=== PATIENT | female | born 2000 | race Caucasian/White ===

== ENCOUNTER 2018-08-03 12:44 | Emergency (ER) | payer SELFPAY ==
[2018-08-03 12:48] VITALS: BP 125/77; PULSE 102; RESP 18; TEMP 36.9; O2SAT 99
--- NOTE | 2018-08-03 13:02 | W.ED.GENAD ---
Discharge Plan Discharge Details Chief Complaint: RespSymp Clinical Impression: URI (upper respiratory infection) Primary Care Provider: Dang Abreu ED Provider: Nannette Hyatt Disposition Patient Disposition: HOME Home Meds and New Rx's Prescriptions: Continue norelgestromin-ethin.estradiol [Xulane] 1 EACH patch weekly 1 ea Transdermal weekly Qty: 9 RF: 4 lisdexamfetamine 30 mg capsule 30 mg PO DAILY Qty: 30 RF: 0 No Action citalopram 20 MG tablet 20 mg PO DAILY Qty: 30 RF: 0 Discharge Instructions Instructions: Upper Respiratory Infection (ED) Additional Instructions: Drink plenty of fluids and get plenty of rest. Alternate Tylenol and Motrin for pain. Take [id number]-bxj-[id number] cough and cold medicine such as DayQuil, NyQuil for symptomatic treatment for a likely viral illness. Follow up with her primary care doctor in 1 week for reevaluation as needed. Return to the emergency department with any worsening or new concerning symptoms. Stand Alone Forms: Work Release Discharge Data Discharge Physician: Nannette Hyatt Medical Decision Making MDM Narrative Medical decision making narrative: 17-year-old female who presents with rhinorrhea, congestion, intermittent dry and productive cough with green sputum, and sore throat for the past few days. Patient states she came to the ED due to her sore throat. She called out of work today and is requesting a work note. Vitals within normal limits. Airway is intact and she is speaking in full sentences and no drooling. Normal ENT and lung exam. Uvula midline and no evidence of abscess or exudates or tonsillar edema or erythema. Lungs clear to auscultation. I explained to patient that her symptoms are likely viral in nature and can be treated with symptomatic treatment such as Motrin, Tylenol and lxrr-pdt-ulwexwc cough and cold medicine. I explained to patient that her exam does not appear consistent with pharyngitis and I do not see any indication for a rapid strep test and she is agreeable. I do not see any indication for p.o. steroids. Patient instructed on the importance of handwashing, rest, fluids. She was given a work note to return in 2 days. She is instructed to follow-up with the primary care doctor for reevaluation and return here if worse. Patient's medical history noted she is on Celexa but she states she is not taking this. Her PMH includes PTSD, ADHD, anxiety. Patient states she feels she also became anxious about her symptoms today and that led her to come to the ER. She was reassured that her symptoms are likely viral and she feels good to go home. HPI - General Adult General Mode of arrival: ambulatory. Date/Time Provider Initiated Documentation: 08/03/18 12:51. Limitations to Documentation: no limitations. Information obtained by: patient. HPI Narrative: Patient is a 17-year-old female who presents with runny nose, congestion, occasional dry and productive cough, and sore throat for the past few days. Patient states her sore throat is bothering her the most and this started last night. She took NyQuil last night with some relief. Patient states she called out of work today and needs a work note. She denies difficulty swallowing and has been able to take liquids and solids. She denies known fever. She denies shortness of breath or chest pain. Related Data Previous Rx's Medication Instructions Recorded lisdexamfetamine 30 mg capsule 30 mg PO DAILY #30 tab-cap 08/02/18 Allergies Allergy/AdvReac Type Severity Reaction Status Date / Time DANDER Allergy Intermediate Skin Rash Uncoded 08/03/18 12:52 General Stated Complaint: RespSymp MARGO: 4 Review of Systems Review of Systems All systems reviewed & are unremarkable except as noted in HPI and below Constitutional Denies chills, Denies excessive sweating, Denies fatigue, Denies fever(s), Denies weakness and Denies weight loss Eyes Patient Reports system reviewed and no additional complaints, except as docu and Denies blurry vision ENT Reports dysphagia, Reports nasal congestion, Reports nasal discharge, Denies sinus pain, Denies sinus pressure, Reports sore throat and Denies throat swelling Cardiovascular Denies chest pain, Denies syncope, Denies rapid heart rate and Denies dyspnea Respiratory Reports cough and Denies dyspnea Gastrointestinal Denies abdominal pain, Reports dysphagia, Denies diarrhea and Denies vomiting Genitourinary Denies hematuria, Denies dysuria and Denies flank pain Musculoskeletal Denies back pain and Denies joint swelling Integumentary/Breasts Denies lesions and Denies rash Neurologic Denies behavioral changes, Denies confusion, Denies syncope and Denies weakness Psychiatric Denies behavioral changes, Denies confusion and Denies depression Endocrine Denies excessive sweating and Denies fatigue Hematologic/Lymphatic Denies easy bruising and Denies lymphadenopathy Allergic/Immunologic Denies throat swelling PFSH Family History Mother Substance abuse Essential hypertension Depression Mental disorder Neoplasm Sister Asthma Father Substance abuse Diabetes Mental disorder Asthma Brother No problems noted. Grandfather Essential hypertension Depression Heart disease Cerebrovascular accident Grandfather Essential hypertension Grandmother Depression Grandmother Diabetes Essential hypertension Heart disease Hyperlipidemia Neoplasm Cerebrovascular accident Maternal Aunt Anxiety Depression Neoplasm Asthma Maternal Family History Neoplasm Medical History ADHD (attention deficit hyperactivity disorder) Depression Ganglion cyst of finger of right hand Learning disabilities Post traumatic stress disorder Social History Smoking/Tobacco Use Status: Current every day Surgical History oral surgery Exam Const General: cooperative and healthy appearing Orientation: alert and awake HENMT Head: normal to inspection Ears: hearing grossly normal bilaterally, external ears normal and TM's normal bilaterally General nose exam: external nose normal Face and sinus: normal facial exam and no sinus tenderness Mouth: oral mucosae normal, oropharynx normal, moist mucous membranes and no trismus Teeth and gingiva: dentition normal Throat: posterior oropharynx normal (No exudates), uvula midline, no peritonsillar masses and no postnasal drainage Eyes General: appearance normal, both eyes and all related structures Eyelids: eyelids normal Pupils: PERRL EOM: EOM intact bilaterally Neck Neck: normal visual inspection Lymphatic: no lymphadenopathy noted Chest Chest: normal inspection of the chest Resp Effort & Inspection: normal respiratory effort and able to speak in complete sentences Auscultation: clear to auscultation bilaterally Cardio Rate: regular rate Rhythm: regular rhythm Skin General skin exam: no rashes or lesions noted Neuro General: alert and awake Cognition: normal cognition Speech: speech normal Gait: normal gait Motor: muscle tone normal throughout Sensory Exam: no sensory deficits noted Extrem General: normal to inspection, full ROM and normal capillary refill Psych Appearance: grossly normal Mental Status: mental status grossly normal Speech and Movement: speech and movement normal Affect: normal affect Thought Process: normal Course Vital Signs Temperature 98.4 F 08/03/18 12:48 Pulse 102 H 08/03/18 12:48 Respiratory Rate 18 08/03/18 12:48 Blood Pressure 125/77 08/03/18 12:48 Pulse Oximetry 99 08/03/18 12:48 Temperature 98.4 F 08/03/18 12:48 Pulse 102 H 08/03/18 12:48 Respiratory Rate 18 08/03/18 12:48 Blood Pressure 125/77 08/03/18 12:48 Pulse Oximetry 99 08/03/18 12:48
--- NOTE | 2018-08-03 13:06 | ED.GENADUL_ITS ---
Discharge Plan Discharge Details Chief Complaint: RespSymp Clinical Impression: URI (upper respiratory infection) Primary Care Provider: Dang Abreu ED Provider: Nannette Hyatt Disposition Patient Disposition: HOME Home Meds and New Rx's Prescriptions: Continue norelgestromin-ethin.estradiol [Xulane] 1 EACH patch weekly 1 ea Transdermal weekly Qty: 9 RF: 4 lisdexamfetamine 30 mg capsule 30 mg PO DAILY Qty: 30 RF: 0 No Action citalopram 20 MG tablet 20 mg PO DAILY Qty: 30 RF: 0 Discharge Instructions Instructions: Upper Respiratory Infection (ED) Additional Instructions: Drink plenty of fluids and get plenty of rest. Alternate Tylenol and Motrin for pain. Take ntkw-ggy-aoecdtp cough and cold medicine such as DayQuil, NyQuil for symptomatic treatment for a likely viral illness. Follow up with her primary care doctor in 1 week for reevaluation as needed. Return to the emergency department with any worsening or new concerning symptoms. Stand Alone Forms: Work Release Discharge Data Discharge Physician: Nannette Hyatt Medical Decision Making MDM Narrative Medical decision making narrative: 17-year-old female who presents with rhinorrhea, congestion, intermittent dry and productive cough with green sputum , and sore throat for the past few days. Patient states she came to the ED due to her sore throat. She called out of work today and is requesting a work note. Vitals within normal limits. Airway is intact and she is speaking in full sentences and no drooling. Normal ENT and lung exam. Uvula midline and no evidence of abscess or exudates or tonsillar edema or erythema. Lungs clear to auscultation. I explained to patient that her symptoms are likely viral in nature and can be treated with symptomatic treatment such as Motrin, Tylenol and dsud-izd-dtjsmqj cough and cold medicine. I explained to patient that her exam does not appear consistent with pharyngitis and I do not see any indication for a rapid strep test and she is agreeable. I do not see any indication for p.o. steroids. Patient instructed on the importance of handwashing, rest, fluids. She was given a work note to return in 2 days. She is instructed to follow-up with the primary care doctor for reevaluation and return here if worse. Patient's medical history noted she is on Celexa but she states she is not taking this. Her PMH includes PTSD, ADHD, anxiety. Patient states she feels she also became anxious about her symptoms today and that led her to come to the ER. She was reassured that her symptoms are likely viral and she feels good to go home. HPI - General Adult General Mode of arrival: ambulatory . Date/Time Provider Initiated Documentation: 08/03/18 12:51 . Limitations to Documentation: no limitations . Information obtained by: patient . HPI Narrative: Patient is a 17-year-old female who presents with runny nose, congestion, occasional dry and productive cough, and sore throat for the past few days. Patient states her sore throat is bothering her the most and this started last night. She took NyQuil last night with some relief. Patient states she called out of work today and needs a work note. She denies difficulty swallowing and has been able to take liquids and solids. She denies known fever. She denies shortness of breath or chest pain. Related Data Previous Rx's Medication Instructions Recorded lisdexamfetamine 30 mg capsule 30 mg PO DAILY #30 tab-cap 08/02/18 Allergies Allergy/AdvReac Type Severity Reaction Status Date / Time DANDER Allergy Intermediate Skin Rash Uncoded 08/03/18 12:52 General Stated Complaint: RespSymp MARGO: 4 Review of Systems Review of Systems All systems reviewed & are unremarkable except as noted in HPI and below Constitutional Denies chills, Denies excessive sweating, Denies fatigue, Denies fever(s), Denies weakness and Denies weight loss Eyes Patient Reports system reviewed and no additional complaints, except as docu and Denies blurry vision ENT Reports dysphagia, Reports nasal congestion, Reports nasal discharge, Denies sinus pain, Denies sinus pressure, Reports sore throat and Denies throat swelling Cardiovascular Denies chest pain, Denies syncope, Denies rapid heart rate and Denies dyspnea Respiratory Reports cough and Denies dyspnea Gastrointestinal Denies abdominal pain, Reports dysphagia, Denies diarrhea and Denies vomiting Genitourinary Denies hematuria, Denies dysuria and Denies flank pain Musculoskeletal Denies back pain and Denies joint swelling Integumentary/Breasts Denies lesions and Denies rash Neurologic Denies behavioral changes, Denies confusion, Denies syncope and Denies weakness Psychiatric Denies behavioral changes, Denies confusion and Denies depression Endocrine Denies excessive sweating and Denies fatigue Hematologic/Lymphatic Denies easy bruising and Denies lymphadenopathy Allergic/Immunologic Denies throat swelling PFSH Family History Mother Substance abuse Essential hypertension Depression Mental disorder Neoplasm Sister Asthma Father Substance abuse Diabetes Mental disorder Asthma Brother No problems noted. Grandfather Essential hypertension Depression Heart disease Cerebrovascular accident Grandfather Essential hypertension Grandmother Depression Grandmother Diabetes Essential hypertension Heart disease Hyperlipidemia Neoplasm Cerebrovascular accident Maternal Aunt Anxiety Depression Neoplasm Asthma Maternal Family History Neoplasm Medical History ADHD (attention deficit hyperactivity disorder) Depression Ganglion cyst of finger of right hand Learning disabilities Post traumatic stress disorder Social History Smoking/Tobacco Use Status: Current every day Surgical History oral surgery Exam Const General: cooperative and healthy appearing Orientation: alert and awake HENMT Head: normal to inspection Ears: hearing grossly normal bilaterally, external ears normal and TM's normal bilaterally General nose exam: external nose normal Face and sinus: normal facial exam and no sinus tenderness Mouth: oral mucosae normal, oropharynx normal, moist mucous membranes and no trismus Teeth and gingiva: dentition normal Throat: posterior oropharynx normal (No exudates), uvula midline, no peritonsillar masses and no postnasal drainage Eyes General: appearance normal, both eyes and all related structures Eyelids: eyelids normal Pupils: PERRL EOM: EOM intact bilaterally Neck Neck: normal visual inspection Lymphatic: no lymphadenopathy noted Chest Chest: normal inspection of the chest Resp Effort & Inspection: normal respiratory effort and able to speak in complete sentences Auscultation: clear to auscultation bilaterally Cardio Rate: regular rate Rhythm: regular rhythm Skin General skin exam: no rashes or lesions noted Neuro General: alert and awake Cognition: normal cognition Speech: speech normal Gait: normal gait Motor: muscle tone normal throughout Sensory Exam: no sensory deficits noted Extrem General: normal to inspection, full ROM and normal capillary refill Psych Appearance: grossly normal Mental Status: mental status grossly normal Speech and Movement: speech and movement normal Affect: normal affect Thought Process: normal Course Vital Signs Temperature 98.4 F 08/03/18 12:48 Pulse 102 H 08/03/18 12:48 Respiratory Rate 18 08/03/18 12:48 Blood Pressure 125/77 08/03/18 12:48 Pulse Oximetry 99 08/03/18 12:48 Temperature 98.4 F 08/03/18 12:48 Pulse 102 H 08/03/18 12:48 Respiratory Rate 18 08/03/18 12:48 Blood Pressure 125/77 08/03/18 12:48 Pulse Oximetry 99 08/03/18 12:48
[2018-08-03 13:15] VITALS: BP 122/73; PULSE 99; RESP 18; TEMP 36.9; O2SAT 99
== END 2018-08-03 13:16 | disposition home or self-care (01) ==
PROVIDERS: Emergency Provider Physician Assistant; PCP Nurse Practitioner Family
DX: J06.9 Acute upper respiratory infection, unspecified (principal)
CPT/HCPCS: 99282

== ENCOUNTER 2018-11-02 22:25 | Emergency (ER) | payer MEDICAID, SELFPAY ==
[2018-11-02 22:30] VITALS: BP 133/75; PULSE 88; RESP 16; TEMP 37.2; O2SAT 99
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
[2018-11-02 22:53] LABS: Bilirubin Negative (Negative); Blood Small (Negative); Clarity Cloudy; Glucose Negative (Negative); Ketones Negative (Negative); Leukocyte Esterase Moderate (Negative); Nitrite Negative (Negative); Specific Gravity 1.025 (1.005-1.025); Urobilinogen 0.2 EU/dL (Up TO 0.2); pH 5.5 (5-8)
[2018-11-02 23:04] LABS: Epithelial Cells Many HPF (Negative); WBC >50 HPF (0-5)
[2018-11-02 23:05] LABS: Bacteria Few HPF (Negative); C & S Indicated? No/Sq. Contamination; Casts Negative LPF (Negative); Crystals Negative HPF (Negative); Mucus Negative (Negative)
[2018-11-02] MEDS: Phenazopyridine 100 MG TAB PO (23:35)
[2018-11-02] MEDS: Cephalexin 500 MG CAP PO (23:45)
[2018-11-02 23:47] VITALS: BP 133/75; PULSE 88; RESP 16; TEMP 37.2; O2SAT 99
== END 2018-11-02 23:45 | disposition home or self-care (01) ==
PROVIDERS: Emergency Provider Physician Assistant; PCP Nurse Practitioner Family
DX: N39.0 Urinary tract infection, site not specified (principal); Z87.440 Personal history of urinary (tract) infections; I10 Essential (primary) hypertension
CPT/HCPCS: 81025; 99283; 81003; 81015

== ENCOUNTER 2018-12-06 17:27 | Emergency (ER) | payer MEDICAID, SELFPAY ==
[2018-12-06 18:01] VITALS: BP 122/86; PULSE 89; RESP 12; TEMP 36.8; O2SAT 98
[2018-12-06 18:18] LABS: Bilirubin Small (Negative); Blood Large (Negative); Clarity Sl Cloudy; Glucose Negative (Negative); Ketones 40 mg/dL (Negative); Leukocyte Esterase Small (Negative); Nitrite Positive (Negative); Specific Gravity >= 1.030 (1.005-1.025); pH 5.5 (5-8)
[2018-12-06 18:28] LABS: Bacteria Moderate HPF (Negative); C & S Indicated? Yes; Casts Negative LPF (Negative); Crystals Negative HPF (Negative); Epithelial Cells Few HPF (Negative); Mucus Negative (Negative); Other Cells Negative (Negative); RBC >50 (0-2)
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
[2018-12-06] MEDS: Ciprofloxacin 500 MG TAB PO (21:00)
[2018-12-06 21:59] VITALS: BP 122/86; PULSE 89; RESP 12; TEMP 36.8; O2SAT 98
== END 2018-12-06 20:33 | disposition home or self-care (01) ==
PROVIDERS: Emergency Provider Student in an Organized Health Care Education/Training Program; PCP Nurse Practitioner Family
DX: N10 Acute pyelonephritis (principal); B96.20 Unspecified Escherichia coli [E. coli] as the cause of diseases classified elsewhere; Z87.440 Personal history of urinary (tract) infections; I10 Essential (primary) hypertension
CPT/HCPCS: 81025; 87077; 99283; 81003; 81015; 87086; 87186

== ENCOUNTER 2019-03-17 08:51 | Emergency (ER) | payer MEDICAID, SELFPAY ==
[2019-03-17 09:15] VITALS: BP 126/67; PULSE 90; RESP 16; TEMP 37.7; O2SAT 100
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
[2019-03-17] MEDS: Acetaminophen 325 MG TAB 650 MG PO (10:23)
[2019-03-17] MEDS: Ibuprofen 600 MG TAB PO (10:24)
[2019-03-17] MEDS: Dexamethasone 10 MG/ML VIAL PO (10:24)
[2019-03-17 10:50] VITALS: BP 126/67; PULSE 84; RESP 16; TEMP 37.6; O2SAT 100
== END 2019-03-17 10:40 | disposition home or self-care (01) ==
PROVIDERS: Emergency Provider Student in an Organized Health Care Education/Training Program; PCP Nurse Practitioner Family
DX: J02.0 Streptococcal pharyngitis (principal); F17.210 Nicotine dependence, cigarettes, uncomplicated
CPT/HCPCS: 87880; 96372; 99284; J0561; J1100

== ENCOUNTER 2019-05-14 17:39 | Emergency (ER) | payer MEDICAID, SELFPAY ==
[2019-05-14 17:42] VITALS: BP 131/95; PULSE 114; RESP 22; TEMP 36.9; O2SAT 100
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
--- NOTE | 2019-05-14 18:20 | NUR.NOTE ---
Nursing Note:Agricultural Research Technician for pelvic exam.
[2019-05-14 18:26] LABS: Abs Immature Grans 0.01 k/cumm (0.0-0.09); Absolute Basophil Count 0.04 k/cumm (0.0-0.2); Absolute Eosinophil Count 0.06 k/cumm (0.0-0.7); Absolute Lymphocyte Count 2.97 k/cumm (1.2-3.4); Absolute Monocyte Count 0.42 k/cumm (0.11-0.7); Absolute Neutrophil Count 4.53 k/cumm (1.2-6.7); Basophils % 0.5; Eosinophils % 0.7; HCT 43.1 % (36.0-46.0); Immature Grans % 0.1; Mean Corp. HGB Concentration 34.8 g/dL (32.0-36.0); Mean Corpuscular Hemoglobin 29.6 pg (27.0-33.0); Mean Platelet Volume 12.2 fL (8.0-11.0); Monocytes % 5.2; Neutrophils % 56.5; Platelet Count 253 x1000/uL (130-400); RBC 5.07 m/cumm (4.00-5.20); RBC Distribution Width 13.3 % (11.7-14.6); White Blood Cell Count 8.03 k/cumm (4.4-10.8)
[2019-05-14 18:45] LABS: ALT 21 U/L (12-78); AST 15 U/L (15-37); Albumin 4.5 g/dL (3.4-5.0); Alkaline Phosphatase 84 U/L (46-116); Anion Gap 10.8 mmol/L (3-11); BUN 10 mg/dL (7-18); Bilirubin, Total 1.1 mg/dL (0.2-1.0); CO2 27.2 mmol/L (21.0-32.0); CREATININE 0.82 mg/dL (0.55-1.02); Calcium 9.1 mg/dL (8.5-10.1); Chloride 102 mmol/L (98-107); Glucose 107 mg/dL (70-100); HCG Quant, Pregnancy 1 mIU/mL (1-3); Potassium 3.4 mmol/L (3.5-5.1); Sodium 140 mmol/L (136-145); Total Protein 8.2 g/dL (6.4-8.2)
[2019-05-14] MEDS: Potassium Chloride 10 MEQ TABCR 20 MEQ PO (18:55)
[2019-05-14 19:49] LABS: INR 1.1 (0.9-1.1); Prothrombin Time 10.5 sec (9.3-11.0)
== END 2019-05-14 19:36 | disposition home or self-care (01) ==
PROVIDERS: Emergency Provider Student in an Organized Health Care Education/Training Program; PCP Nurse Practitioner Family
DX: N93.8 Other specified abnormal uterine and vaginal bleeding (principal); E87.6 Hypokalemia; F11.10 Opioid abuse, uncomplicated
CPT/HCPCS: 36415; 80053; 81025; 86850; 86900; 86901; 99283; 84702; 85025; 85610

== ENCOUNTER 2019-08-27 16:07 | Outpatient (REF) | payer MEDICAID, SELFPAY ==
[2019-08-29 13:55] LABS: Chlamydia Result Negative; GC Result Negative; Specimen Description URINE
== END 2019-08-27 16:27 ==
LOC: LBN 16:07
PROVIDERS: PCP Nurse Practitioner Family; Visit Provider Nurse Practitioner Women's Health
DX: Z11.3 Encounter for screening for infections with a predominantly sexual mode of transmission (principal)
CPT/HCPCS: 87491; 87591

== ENCOUNTER 2019-09-27 11:59 | Emergency (ER) | payer MEDICAID, SELFPAY ==
[2019-09-27 12:06] VITALS: BP 118/70; PULSE 81; RESP 16; TEMP 36.7; O2SAT 95
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
[2019-09-27 12:30] LABS: Bilirubin Negative (Negative); Blood Small (Negative); Clarity Clear (Clear); Glucose Negative (Negative); Ketones Negative (Negative); Leukocyte Esterase Negative (Negative); Nitrite Negative (Negative); Urobilinogen 0.2 EU/dL (Up TO 0.2); pH 7.5 (5-8)
[2019-09-27] MEDS: Prochlorperazine 10 MG TAB PO (12:42)
[2019-09-27 12:51] LABS: WBC Negative HPF (0-5)
[2019-09-27 12:52] LABS: Bacteria Rare HPF (Negative); C & S Indicated? No; Casts Negative LPF (Negative); Crystals Negative HPF (Negative); Epithelial Cells Few HPF (Negative); Mucus Negative (Negative)
[2019-09-27] MEDS: Prochlorperazine 10 MG TAB 30 MG PO (13:19)
[2019-09-27 13:23] VITALS: BP 118/70; PULSE 81; RESP 16; TEMP 36.7; O2SAT 95
== END 2019-09-27 13:22 | disposition home or self-care (01) ==
PROVIDERS: Emergency Provider Physician Assistant; PCP Nurse Practitioner Family
DX: R10.13 Epigastric pain (principal); R11.0 Nausea; I10 Essential (primary) hypertension
CPT/HCPCS: 81025; 99283; 81003; 81015

== ENCOUNTER 2019-12-14 15:19 | Emergency (ER) | payer MEDICAID, SELFPAY ==
[2019-12-14 15:26] VITALS: BP 115/74; PULSE 71; RESP 18; TEMP 36.7; O2SAT 98
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
[2019-12-14] MEDS: Erythromycin Ophth Oint 3.5 GM TUBE OP (15:45)
== END 2019-12-14 15:42 | disposition home or self-care (01) ==
PROVIDERS: Emergency Provider Emergency Medicine; PCP Nurse Practitioner Family
DX: H10.023 Other mucopurulent conjunctivitis, bilateral (principal)
CPT/HCPCS: 99283

== ENCOUNTER 2020-06-06 11:55 | Emergency (ER) | payer MEDICAID, SELFPAY ==
[2020-06-06 12:02] VITALS: BP 134/48; PULSE 75; RESP 16; TEMP 36.9; O2SAT 97
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
== END 2020-06-06 13:37 | disposition home or self-care (01) ==
PROVIDERS: Emergency Provider Physician Assistant; PCP Nurse Practitioner Family
DX: R10.12 Left upper quadrant pain (principal); F41.8 Other specified anxiety disorders
CPT/HCPCS: 81025; 99283; 99284

== ENCOUNTER 2020-07-24 16:18 | Emergency (ER) | payer MEDICAID, SELFPAY ==
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
[2020-07-24 16:22] VITALS: BP 118/69; PULSE 86; RESP 18; TEMP 37; O2SAT 95
[2020-07-24 16:43] LABS: Bilirubin Negative (Negative); Blood Trace-intact (Negative); Clarity Sl Cloudy (Clear); Glucose Negative (Negative); Ketones Negative (Negative); Leukocyte Esterase Negative (Negative); Nitrite Negative (Negative); Specific Gravity 1.025 (1.005-1.025); Urobilinogen 0.2 EU/dL (Up TO 0.2)
[2020-07-24 16:53] LABS: Bacteria Rare HPF (Negative); C & S Indicated? No; Crystals Negative HPF (Negative); Epithelial Cells Many HPF (Negative); Mucus Negative (Negative); RBC 0-2 HPF (0-2); WBC 0-2 HPF (0-5)
== END 2020-07-24 17:25 | disposition home or self-care (01) ==
PROVIDERS: Emergency Provider Physician Assistant; PCP Nurse Practitioner Family
DX: R35.0 Frequency of micturition (principal); Z87.440 Personal history of urinary (tract) infections
CPT/HCPCS: 81025; 99282; 81003; 81015; 99283

== ENCOUNTER 2020-11-07 16:57 | Outpatient (REF) | payer MEDICAID, SELFPAY ==
--- NOTE | 2020-11-07 15:30 | PAPFT_PTH ---
PATIENT: Stephanie Nix LOC: [facility] U#:[id number] AGE/SX: 20/F ROOM: RE11/07/[address]: CITLALI Cuellar : 2000 BED: DIS: 11/07/2020 SPEC #: [id number] RECD: 11/10/20 12:42 STATUS: DELROY LISA #: [id number] MIKEL: 11/07/20 15:[address]: Dang Abreu DEPT: [facility] Cytology RECD BY: Audrey Ahumada Tissues: 1 - CX/ENDOCX FOR PAP SMEARS Procedures: PAP THIN PREP/UVM Screening Comments: [id number] (CHLAMYDIA/GC)
[2020-11-07 22:22] LABS: HCG Qual (Serum) Negative
[2020-11-11 13:56] LABS: Chlamydia Result Negative (Negative); GC Result Negative (Negative)
== END 2020-11-07 17:17 ==
LOC: LBN 16:57
PROVIDERS: PCP Nurse Practitioner Family; Visit Provider Nurse Practitioner Family
DX: N76.0 Acute vaginitis (principal); R11.0 Nausea; Z32.01 Encounter for pregnancy test, result positive; Z12.4 Encounter for screening for malignant neoplasm of cervix; Z11.3 Encounter for screening for infections with a predominantly sexual mode of transmission
CPT/HCPCS: 87491; 87591; 88142; 84703; 87480; 87510; 87660

== ENCOUNTER 2020-12-26 15:18 | Outpatient (REF) | payer MEDICAID, SELFPAY | END 2020-12-26 15:38 | LOC: LBN 15:18 | PROVIDERS: PCP Nurse Practitioner Family; Visit Provider Nurse Practitioner Family | DX: N76.0 Acute vaginitis (principal) | CPT/HCPCS: 87480; 87510; 87660 ==

== ENCOUNTER 2021-05-22 12:30 | Emergency (ER) | payer MEDICAID, SELFPAY ==
[2021-05-22 12:35] VITALS: BP 114/73; PULSE 87; RESP 14; TEMP 37.4; O2SAT 97
[2021-05-22 12:56] LABS: Bilirubin Small (Negative); Blood Negative (Negative); Clarity Cloudy (Clear); Glucose Negative (Negative); Ketones Trace mg/dL (Negative); Leukocyte Esterase Small (Negative); Nitrite Positive (Negative); Specific Gravity >= 1.030 (1.005-1.025); Urobilinogen 0.2 EU/dL (Up TO 0.2)
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
[2021-05-22 13:03] LABS: Bacteria Many HPF (Negative); C & S Indicated? No/Sq. Contamination; Casts Negative LPF (Negative); Crystals Negative HPF (Negative); Epithelial Cells Many HPF (Negative); Mucus Negative (Negative); RBC 0-2 HPF (0-2); WBC 20-50 HPF (0-5)
== END 2021-05-22 13:16 | disposition home or self-care (01) ==
PROVIDERS: Emergency Provider Emergency Medicine; PCP Nurse Practitioner Family
DX: M25.531 Pain in right wrist (principal); N39.0 Urinary tract infection, site not specified
CPT/HCPCS: 29125; 81025; 99283; 81003; 81015

== ENCOUNTER 2021-06-23 18:17 | Emergency (ER) | payer MEDICAID, SELFPAY ==
[2021-06-23 18:31] VITALS: BP 127/82; PULSE 80; RESP 16; TEMP 36.9; O2SAT 100
[2021-06-23 18:37] LABS: Bilirubin Negative (Negative); Blood Large (Negative); Clarity Cloudy (Clear); Glucose Negative (Negative); Ketones Negative (Negative); Leukocyte Esterase Large (Negative); Nitrite Negative (Negative); Specific Gravity >= 1.030 (1.005-1.025); Urobilinogen 0.2 EU/dL (Up TO 0.2)
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
[2021-06-23 18:50] LABS: RBC >50 HPF (0-2); WBC >50 HPF (0-5)
[2021-06-23 18:51] LABS: C & S Indicated? Yes
[2021-06-23] MEDS: Cephalexin 500 MG CAP PO (19:07)
[2021-06-23] MEDS: Phenazopyridine 100 MG TAB PO (19:08)
[2021-06-23] MEDS: Phenazopyridine 100 MG TAB, 2 TABS/BTL PO (19:08)
[2021-06-23] MEDS: Cephalexin 500 MG CAP, 4 CAPS/BTL PO (19:09)
--- NOTE | 2021-06-23 22:21 | NUR.NOTE ---
Referral to Care Management to establish PCP sooner rather than later for UTI.Nursing Note:
--- NOTE | 2021-06-27 12:49 | W.ED.FU ---
Urine culture resulted today noting Staphylococcus saprophyticus greater than 100,000 colonies and E. coli 10,000-50,000 colonies. Urine culture resistant to cephalosporins, ampicillin and Bactrim and sensitive to fluoroquinolones and Macrobid. Patient is taking methadone so we will hold on fluoroquinolones due to risk of QT prolongation. Patient was seen here on 06/23 and diagnosed with UTI and started on Keflex. Patient was called at the number provided. She states she is feeling better. She is advised to stop taking the Keflex. An order for Macrobid was sent electronically to her pharmacy. Patient is advised to take this until finished and to return to the ER with any concerns.
== END 2021-06-23 19:30 | disposition home or self-care (01) ==
PROVIDERS: Emergency Provider Registered Nurse Emergency; PCP Nurse Practitioner Family
DX: N39.0 Urinary tract infection, site not specified (principal); B95.7 Other staphylococcus as the cause of diseases classified elsewhere; M25.531 Pain in right wrist; G89.29 Other chronic pain; Z87.440 Personal history of urinary (tract) infections
CPT/HCPCS: 29125; 81025; 87077; 99283; 81003; 81015; 87086; 87186

== ENCOUNTER 2024-06-04 08:46 | Emergency (ER) | payer MEDICAID, SELFPAY ==
[2024-06-04 08:49] VITALS: BP 136/97; PULSE 75; RESP 16; TEMP 36.8; O2SAT 99
== END 2024-06-04 10:59 | disposition left against medical advice (07) ==
LOC: ER 09:13
PROVIDERS: Emergency Provider Emergency Medicine
DX: Z53.21 Procedure and treatment not carried out due to patient leaving prior to being seen by health care provider (principal)

== ENCOUNTER 2024-07-20 21:39 | Emergency (ER) | payer MEDICAID, SELFPAY ==
[2024-07-20 21:40] VITALS: BP 133/85; PULSE 90; RESP 16; TEMP 36.2; O2SAT 98
--- OUTSIDE RECORDS SUMMARY | 2024-07-20 21:49 | XMS_ITS | Encounter Summary ---
Author Organization [facility] Address [facility] [place] [address] Care Team Providers Care Bmet Name Role Phone Unknown Primary Care Provider Unavailabl e Encounter Details Date Type Department Care Team (Latest Contact Info) Description 08/04/2017 Encounter Social History Tobacco Use Types Packs/Day Years Used Date Smoking Tobacco: Every Day Cigarettes Smokeless Tobacco: Never Comments:doesn't smoke with patch on, 3 a day at most Alcohol Use Standard Drinks/Week Comments No 0 (1 standard drink = 0.6 oz pur e alcohol) Sex and Gender Information Value Date Recorded Sex Assigned at Not on file Gender Identity Not on file Sexual Orientation Not on file documented as of this encounter Miscellaneous Notes * Note - Khadijah Bourne RN - 08/04/2017 3:47 PM EDT This note was copied from a baby's chart. Services note: S/O: Met with mom at baby's bedside, she was finishing a pumping session. Breasts are full and feel soreand lumpy. She is getting more milk with each session and has about 40 ml total this session. She verbalized she is having a difficult time getting here as soon as she would like. She states she is worried that if she does not stay her with her baby that [facility] might take him away. Offered reassurance that as long as she visits regularly and remains active in providing Bart's care and learns his feeding and care needs that [facility] will not take him away. She is hoping to visit daily per her report. Discussed this would be ideal. Also discussed that as Bart gets stronger and more interested in breast feeding that she could then consider staying closer such as at [facility] to make it easier lalitha here longer days and into the evening. Mom will consider this option as well. A: Mom with concerns for her visits, soreness and lumpy breasts with engorgement symptoms. P;RECOMMENDATIONS: Pump at least 8 times per 24 hours and record in pumping log provided Breast massage and hand expression before and during pumping Brief heat prior to pumping and ice packs after pumping X 48 hours, may also take ibuprofen or tylenol for breast discomfort and fullness. Canadian oil to nipples prior to pumping Frequent and prolonged maternal-infant skin to skin contact Offer breast visits when Bart cues readiness. He should gradually begin to nurse more effectively and will likely need the nipple shield to support his latching efforts for a while. Nipple Shield Feeding: How to use the shield: -Wet the shield with warm tap water -Roll the shield back about [address] the shank of the shield -Apply to nipple -Roll the shield back onto the breast so the nipple is pulled into the shank of the shield -Latch the infant on by tipping his head, bringing the 's chin onto the breast first with nipple shield at philtrum and allow the baby to take it deeply into the mouth -Assure the 's lips are at the base on the shield, not slipping back and forth Care of the Nipple Shield: Wash the shield and air dry, may be boiled if desired Maintaining Breastmilk Production: Breastfeed as cues for readiness Pump with a double electric breast pump 8 X per day as Bart is not feeding effectively yet. Hand Expression and Breast Massage Alternate breast compressions during feeding Weaning from the nipple shield: Begin feeding on shield When milk ejection reflex occurs and infant has changed suck pattern to nutritive, quickly remove the shield and attempt re-latch. If unsuccessful, try again at the next feeding Close support and follow up Khadijah Bourne RN IBCLC [facility] Services documented in this encounter Plan of Treatment Not on file documented as of this encounter Visit Diagnoses Not on filedocumented in this encounter Care Teams Bmet Relationship Specialty Start Date End Date Unknown None PCP - General 08/02/17 documented as of this encounter
--- OUTSIDE RECORDS SUMMARY | 2024-07-20 21:49 | XMS_ITS | Encounter Summary ---
Author Organization [facility] [address] [facility] [place] [address] Care Team Providers Care Nailhead Setter Name Role Phone Unknown Primary Care Provider Unavailabl e Encounter Details Date Type Department Care Team (Latest Contact Info) Description 08/06/2017 Encounter Social History Tobacco Use Types Packs/Day [...] this encounter Miscellaneous Notes * Note - Linda Gonzalez RN - 08/06/2017 4:35 PM EDT This note was copied from a baby's chart. ORAL MOTOR EXAMINATION Oral Motor Examination/Function: Mouth: Small Jaw: Slightly receding Lips: Normal Gums: Normal Tongue: Normal resting position Elevated Able to get past gumline Frenulum: Slight filament palpable (Mom is tongue tied (no intervention) her brother needed frenulotomy) Palate: slightly high Arch Observation: Position: Cross Cradle Rooting: Normal Attachment: Adequate With nipple shield Milk Ejection Reflex: Prior to Attachment Swallow: Normal/Coordination Suck:Swallow Ratio: 1-2:1 Sucking Burst Pattern: 4-5 X 2 Maternal Considerations : Mom has not pumped for 3.5 hours and breasts are full, supply is good. On-going Concerns: Premature post menstrual age: 36 4/7 Risk for feeding difficulties Monitor growth and nutrition closely Recommendations: Breast visits and practice as infant cues for readiness Frequent skin to skin contact and Kangaroo-Mother care Breastfeed as infant cues for readiness Pump frequently at least 8-10 times per 24 hours after infant feeds and record in pumping log recommended trying to pump about an hour before feeds to decrease amount of let down Linda Gonzalez RN, IBCLC [facility] Services documented in this encounter Plan of Treatment Not on file documented as of this encounter Visit Diagnoses Not on filedocumented in this encounter Care Teams Nailhead Setter Relationship Specialty Start Date End Date Unknown None PCP - General 08/02/17 documented as of this encounter
--- OUTSIDE RECORDS SUMMARY | 2024-07-20 21:49 | XMS_ITS | Clinical Summary ---
Author Organization [facility] Address One [facility] [place] [address] Care Team Providers Care Electrician Helper Automotive Name Role Phone Unknown Primary Care Provider Unavailabl e Allergies No known active allergies Medications Medication Sig Dispensed Refills Start Date End Date Status nicotine (NICODERM CQ) 14 mg/24 hr [address] 1 patch onto the skin daily. 28 patch 3 07/01/2017 Active vitamin with oicqlfnq-La-Btxu-FA Tablet Take by mouth. Active levothyroxine (SYNTHROID) 50 mcg Tablet Take 1 tablet by mouth daily. 30 tablet 3 07/21/2017 Active acetaminophen (TYLENOL) 325 mg Tablet Take 2 tablets by mouth every 4 hours as needed for Pain. 30 tablet 1 08/03/2017 Active ibuprofen (ADVIL;MOTRIN) 200 mg Tablet Take 3 tablets by mouth every 6 hours as needed for Pain. 08/03/2017 Active norethindrone (MICRONOR) 0.35 mg Tablet Take 1 tablet by mouth daily. 84 tablet 3 08/03/2017 Active Active Problems Problem Noted Date Diagnosed Date Hypothyroidism 07/30/2017 History of tobacco use 07/30/2017 Supervision of normal first teen in third trimester 07/30/2017 Positive GBS test 07/30/2017 Maternal varicella, non-immune 07/30/2017 Marijuana use 07/16/2017 IUGR (intrauterine growth re striction) affecting care of mother 07/07/2017 Attention deficit disorder (ADD) without hyperac tivity 10/02/2013 Depression 10/02/2013 Resolved Problems Problem Noted Date Diagnosed Date Resolved Date Ganglion of wrist 08/27/2013 07/30/2017 Learning difficulty 09/19/2012 07/30/20 17 Immunizations Name Administration Dates Next Due Varicella (Varivax) LIVE 08/03/2017 Family History Medical History Relation Comments Diabetes Father Hypertension Mother Diabetes Paternal Grandmother Relation Status Comments Father Mother Paternal Grandmother Social History Tobacco Use Types Packs/Day Years [...] on file Sexual Orientation Not on file Last Filed Vital Signs Vital Sign Reading Time Taken Comments Blood Pressure 133/88 08/03/2017 11:21 AM EDT Pulse 69 08/03/2017 11:21 AM EDT Temperature 36.8 ??C (98.2 ??F) 08/03/2017 11:21 AM E DT Respiratory Rate 16 08/03/2017 11:21 AM EDT Oxygen Saturation 100% 08/03/2017 11:21 AM EDT Inhaled Oxygen Concentration - - Weight 68.9 kg (152 lb) 07/30/2017 12:53 PM EDT Height 157.5 cm (5' 2) 07/30/2017 12:53 PM EDT Body Mass Index 27.8 07/30/2017 12:53 PM EDT Plan of Treatment Health Maintenance Due Date Last Done Comments HPV vaccine (1 - 3-dose series) 2013 Hepatitis C Screening 2016 Lipid Screening 2016 Hepatitis B vaccine (0-59 yrs) (1) 2017 Tdap adult 2017 Tetanus vaccine 2017 Chlamydia Screening 02/17/2018 02/17/2017 PAP Smear 2019 Covid-19 Vaccine ( - 2022-24 season) 2023 Influenza (Flu) vaccine (1 o f 1 - Influenza standard series) 07/29/2024 HIV screen Completed 01/17/2017 Procedures Procedure Name Priority Date/Time Associated Diagnosis Comments GC/CHLAMYDIA Routine 02/17/2017 INITIAL EXTERNAL RESULTS PANEL Routine 01/17/2017 from Last 3 Months or Most Recently Relevant to Health Maintenance Results * GC/Chlamydia (02/17/2017) GC Gene Amp Negative GC Source Urine Chlamydia Gene Amp Negative Chlm Source Urine 02/17/2017 Historical Provider MICROBIOLOGY - GE NERAL ORDERABLES * (ABNORMAL) - Initial External Results (01/17/2017) Hemoglobin 13.3(Exter nal Lab) Hematocrit 36.9(Exter nal Lab) Mean Cell Volume 83.3(Exter nal Lab) Platelet 234(Parking Enforcement Technician al Lab) Rubella Antibody IgG Positive(E xternal Lab) Syphilis IgG Negative(E xternal Lab) Hepatitis B Surface Antigen Negative(E xternal Lab) HIV 1/2 Ab Negative(E xternal Lab) Thyroid Stimulating Hormone 4.12(ExtH) Free T4 0.91(Exter nal Lab) Drug Scrn, Compreh + THC(Parking Enforcement Technician al Lab) 01/17/2017 Historical Provider POINT OF CARE BELINDA T ORDERABLES from Last 3 Months or Most Recently Relevant to Health Maintenance Advance Directives * Full Code (Latest Code Status on File) Date Activated Date Inactivated Comments 08/01/2017 6:53 AM 08/03/2017 7:26 PM Question Answer Comments Does patient have capacity to make decision: Yes * Full Code Date Activated Date Inactivated Comments 07/30/2017 2:16 PM 08/01/2017 6:53 AM Question Answer Comments Does patient have capacity to make decision: Yes Care Teams Electrician Helper [employer]otive Relationship Specialty Start Date End Date Unknown None PCP - General 08/02/17
--- OUTSIDE RECORDS SUMMARY | 2024-07-20 21:49 | XMS_ITS | Encounter Summary ---
Author Organization [facility] Address One [facility] [place] [address] Care Team Providers Care Sales Floor Manager Name Role Phone Unknown Primary Care Provider Unavailabl e Encounter Details Date Type Department Care Team (Latest Contact Info) Description 08/03/2017 Encounter Social History Tobacco Use Types Packs/Day [...] * Note - Khadijah Bourne RN - 08/03/2017 6:50 PM EDT This note was copied from a baby's chart. Breast feeding attempt around 14:15 feeding: INFANT ORAL ASSESSMENT Oral Motor Examination/Function: Mouth: Small Jaw Receding Lips: Passively pulled in with latch attempt Gums: Normal Tongue: Normal resting position Frenulum: Not assessed this session Palate: Normal Observation: Position: Cross Cradle then tried Clutch/Football on right side Rooting: Normal Attachment: Latched on and off several times, not able to sustain got fussy frustrated then fell asleep. Tried with size extra small Nipple shield and baby was able to latch on and sustain feeding atbreast for about 6 minutes. Milk Ejection Reflex: Prior to Attachment Swallow: Normal/Coordination Suck:Swallow Ratio: 3-4:1 Sucking Burst Pattern: Non nutritive and nutritive, sucks per burst 3-5 at best effort intermittently Maternal Considerations : Mom's first baby, no history of breast surgery, has been pumping and obtained about five ml her last session which she brought to the baby. Hoping she will be discharged home today. She will cloth picker her Lactina pump at [facility]. Given Lactina pump instructions. On-going Concerns: Premature 36 weeks now post menstrual age:36 2/7 weeks Risk for feeding difficulties due to intensive care nursery stay, maternal separation SGA Monitor infant growth and nutrition closely Recommendations: Breast visits and practice as infant cues for readiness Frequent skin to skin contact and Kangaroo-Mother care Breastfeed as infant cues for readiness, but at least every 2-3 hours, awaken as needed Pump frequently at least 8-10 times per 24 hours after infant feeds and record in pumping log Supplement per ICN feeding guidelines, discussed sucking bursts with mom, will need reinforcement, Supplement guidelines posted at baby's bedside. Post Discharge Recommendations: Refer to local services, mom is from [facility] VNA visits post discharge Mom is hoping to breast feed her baby with goal of on demand breast feeding Keep a Feeding Log the first few weeks: record times/duration, pumping volumes, any supplement given, and infant stools/wet diapers; this journal can be helpful to review with the care provider, VNA or air quality consultant. Report difficulty waking, poor nursing and/or irritability to your provider Frequent pediatric visits post discharge Khadijah Bourne RN IBCLC [facility] Services documented in this encounter Plan of Treatment Not on file documented as of this encounter Visit Diagnoses Not on filedocumented in this encounter Care Teams Sales Floor Manager Relationship Specialty Start Date End Date Unknown None PCP - General 08/02/17 documented as of this encounter
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
--- OUTSIDE RECORDS SUMMARY | 2024-07-20 21:50 | XMS_ITS | Encounter Summary ---
Author Organization [facility] Address [facility] [place] [address] Care Team Providers Care Mortgage Manager Name Role Phone Maxx Granda MD Primary Care Provider [phone] Encounter Details Date Type Department Care Team ([facility] st Contact Info) Description 06/23/2017 Orders Only Obstetrics [place] [address] [address] [facility] DR OBSTETRICS & [place] [address] Ultrasound for screening for growth restriction Social History Tobacco Use Types Packs/Day Years Used Date Smoking Tobacco: Never Assessed Sex and Gender Information Value Date Recorded Sex Assigned at Not on file Gender Identity Not on file Sexual Orientation Not on file documented as of this encounter Plan of Treatment Not on file documented as of this encounter Results * US OB Detailed Morphology (07/01/2017 11:13 AM EDT) Anatomical Region Laterality Modality Pelvis, Abdomen Ultrasound 07/01/2017 11:0 9 AM EDT Impressions 07/01/2017 11:22 AM EDT 3rd Trimester Summary Single intrauterine with a gestational age of 31w 4d based on Early Ultrasound ??(01/26/17). Composite age based on the current ultrasound alone is 27w 5d. Estimated weight corresponds to the < 5th percentile for 31w 4d. Current growth parameters are consistent with prior dating indicating SGA fetus. Amniotic fluid volume is Appropriate for gestational age, MONICA = 11.76 cm, MVP = 4.83 cm Normal U/A Doppler, performed due to all paraments less than 3rd%tile. BPP---05/05---no breathing observed. Anatomical survey is limited due to the late gestational age. I ??viewed the images and agree with the above interpretation. ?Sarah Donnelly MD Electronically Signed Final Report ?? 07/01/2017 11:22 am Narrative 07/01/2017 11:22 AM EDT OBSTETRICS REPORT ? (Signed Final 07/01/2017 11:22 am) PATIENT INFO: ID #: ? [id number] ?: ??[birth year] (16 yrs) Name: ? STEPHANIE JIMENEZ ?Visit Date: 07/01/2017 11:09 am PERFORMED BY: Performed By: ? Wei DELUNA, ??Anisha Attending: ?Andrzej MENDOZA, Sarah Ruffin Referred By: ?MIRZA CANLAES [facility] Location: ? [place] SERVICE(S) PROVIDED: ??UMFM - Detailed Morphology - [id number] ? [id number] ??UOBUA - Umbilical Artery Doppler - [id number] ?[id number] ??UBPP - Biophysical Profile - [id number] ? [id number] INDICATIONS: ??31 weeks gestation of ?Z3A.31 ???IUGR EFW <10% OB HISTORY: Blood ?B+ ?Height: ??5'2 ?Weight (lb): 147 ? BMI: ??26.88 Type: : ?1 EVALUATION: Num Of Fetuses: ? 1 Heart ? 124 Rate(bpm): Cardiac Activity: ?? Observed, normal rhythm Presentation: ? Cephalic Placenta: ? Posterior P. Cord Insertion: ??Within Normal Limits Amniotic Fluid MONICA FV: ?Appropriate for gestational age MONICA Sum(cm) ? Largest Pocket(cm) 11.76 ? 4.83 RUQ(cm) ? RLQ(cm) ? LUQ(cm) ?LLQ(cm) 4.83 ?2.31 ?2.16 ? 2.46 BIOPHYSICAL EVALUATION: Amniotic F.V: ?? Within normal limits ? F. Tone: ??Observed F. Movement: ?Observed ? Score: ??68 F. Breathing: ?? Not Observed --------- BIOMETRY: --------- BPD: ?66.5 ??mm ? G.Age: ?? 26w 6d ? < 3 ??% OFD: ?93.6 ??mm HC: ?258.7 ??mm ? G.Age: ?? 28w 1d ? < 3 ??% AC: ?231.0 ??mm ? G.Age: ?? 27w 4d ? < 3 ??% FL: ? 53.6 ??mm ? G.Age: ?? 28w 3d ? < 3 ??% HUM: ?47.1 ??mm ? G.Age: ?? 27w 5d ? < 5 ??% CER: ?37.1 ??mm ? G.Age: ?? 32w 0d ?55 ??% NB: ? 6.54 ??mm LV: ?4.2 ??mm CM: ?3.8 ??mm HUM: ?47.1 ??mm ? G.Age: ?? 27w 5d ? < 5 ??% FL: ? 53.6 ??mm ? G.Age: ?? 28w 3d ? < 3 ??% CI: ?71.0 ??% ? 70 - 86 FL/HC: ? 20.7 ??% ? 19.1 - 21.3 HC/AC: ? 1.12 ?0.96 - 1.17 FL/BPD: ?80.6 ??% ? 71 - 87 FL/AC: ? 23.2 ??% ? 20 - 24 Est. FW: ?1130 ?? gm ? 2 lb 8 oz ? < 5 ??% GESTATIONAL AGE: U/S Today: ? 27w 5d ?RADHA: ?? 09/25/17 Best: ?31w 4d ?? Det. By: ??Early ?RADHA: ?? 08/29/17 ? Ultrasound ? (01/26/17) TARGETED ANATOMY: Central Nervous System Calvarium/Cranial V.: ??Within Normal Limits Intracranial Pricila: ? Within Normal Limits Cavum: ? Within Normal Limits Parenchyma: ?Within Normal Limits Lateral Ventricles: ?Within Normal Limits Choroid Plexus: ?Within Normal Limits Cereb./Vermis: ? Within Normal Limits Cisterna Magna: ?Limited Views Corpus Callosum: ? Within Normal Limits Midline Falx: ?Within Normal Limits Spine Cervical: ?Visualized Thoracic: ?Visualized Lumbar: ?Visualized Sacral: ?Visualized Shape/Curvature: ? Visualized Head/Neck Face: ?Within Normal Limits Lips: ?Within Normal Limits Ear Position/Size: ? Visualized Neck: ?Within Normal Limits Nuchal Fold: ? Not evaluated at this Nasal Bone: ?Present Profile: ? Visualized Orbits/Eyes: ? Visualized Mandible: ?Visualized Maxilla: ? Visualized Thorax Thoracic Contour: ?Within Normal Limits Lungs: ? Visualized 4 Chamber View: ?Within Normal Limits Cardiac Motion: ?Normal Rhythm Rt Outflow Tract: ?Visualized Lt Outflow Tract: ?Visualized Aortic Arch: ? Visualized Ductal Arch: ? Visualized SVC: ? Visualized Cardiac [place]: ?Visualized Diaphragm: ? Visualized 3 Vessel View: ? Visualized IVC: ? Visualized Abdomen Ventral Wall: ?Not visualized due to Cord Insertion: ?Visualized Situs: ? Normal Stomach: ? Visualized Liver: ? Visualized Lt Kidney: ? Visualized Rt Kidney: ? Visualized Bladder: ? Visualized Bowel: ? Visualized Extremities Lt Humerus: ?Within Nomal Limits Rt Humerus: ?Within Normal Limits Lt Forearm: ?Within Normal Limits Rt Forearm: ?Within Normal Limits Lt Hand: ? Limited Views Rt Hand: ? Limited Views Lt Femur: ?Within Normal Limits Rt Femur: ?Within Normal Limits Lt Lower Leg: ?Within Normal Limits Rt Lower Leg: ?Within Normal Limits Lt Foot: ? Limited Views Rt Foot: ? Limited Views Other Umbilical Cord: ?3 vessel cord DOPPLER - VESSELS: Umbilical Artery ??S/D ? %tile ? RI ?%tile ? PSV ?ADFV ?RDFV ?(cm/s) 4.26 ?> 97.5 ??0.77 ?97.0 ?23.84 ?No ?No CERVIX UTERUS ADNEXA: Left Ovary Size(cm) ? 2.75 ?? x ?? 1.72 ?? x ??1.47 ?Vol(ml): 3.6 Visualized Right Ovary Size(cm) ? 2.73 ?? x ?? 2.17 ?? x ??1.69 ?Vol(ml): 5.2 Visualized Procedure Note Sarah Donnelly MD - 07/01/2017 OBSTETRICS REPORT (Signed Final 07/01/2017 11:22 am) PATIENT INFO: ID #: [id number] : [birth year] (16 yrs) Name: STEPHANIE GAONA Visit Date: 07/01/2017 11:09 am PERFORMED BY: Performed By: Anisha Carvajal RDMS Attending: Sarah Donnelly MD Referred By: MIRZA CANALES [facility] Location: [place] SERVICE(S) PROVIDED: UMFM - Detailed Morphology - [id number] UOBUA - Umbilical Artery Doppler - [id number] UBPP - Biophysical Profile - [id number] INDICATIONS: 31 weeks gestation of Z3A.31 ?IUGR EFW <10% OB HISTORY: Blood B+ Height: 5'2 Weight (lb): 147 BMI: 26.88 Type: : 1 EVALUATION: Num Of Fetuses: 1 Heart 124 Rate(bpm): Cardiac Activity: Observed, normal rhythm Presentation: Cephalic Placenta: Posterior P. Cord Insertion: Within Normal Limits Amniotic Fluid MONICA FV: Appropriate for gestational age MONICA Sum(cm) Largest Pocket(cm) 11.76 4.83 RUQ(cm) RLQ(cm) LUQ(cm) LLQ(cm) 4.83 2.31 2.16 2.46 BIOPHYSICAL EVALUATION: Amniotic F.V: Within normal limits F. Tone: Observed F. Movement: Observed Score: 6/8 F. Breathing: Not Observed --------- BIOMETRY: --------- BPD: 66.5 mm G.Age: 26w 6d < 3 % OFD: 93.6 mm HC: 258.7 mm G.Age: 28w 1d < 3 % AC: 231.0 mm G.Age: 27w 4d < 3 % FL: 53.6 mm G.Age: 28w 3d < 3 % HUM: 47.1 mm G.Age: 27w 5d < 5 % CER: 37.1 mm G.Age: 32w 0d 55 % NB: 6.54 mm LV: 4.2 mm CM: 3.8 mm HUM: 47.1 mm G.Age: 27w 5d < 5 % FL: 53.6 mm G.Age: 28w 3d < 3 % CI: 71.0 % 70 - 86 FL/HC: 20.7 % 19.1 - 21.3 HC/AC: 1.12 0.96 - 1.17 FL/BPD: 80.6 % 71 - 87 FL/AC: 23.2 % 20 - 24 Est. FW: 1130 gm 2 lb 8 oz < 5 % GESTATIONAL AGE: U/S Today: 27w 5d ARDHA: 09/25/17 Best: 31w 4d Det. By: Early RADHA: 08/29/17 Ultrasound (01/26/17) TARGETED ANATOMY: Central Nervous System Calvarium/Cranial V.: Within Normal Limits Intracranial Pricila: Within Normal Limits Cavum: Within Normal Limits Parenchyma: Within Normal Limits Lateral Ventricles: Within Normal Limits Choroid Plexus: Within Normal Limits Cereb./Vermis: Within Normal Limits Cisterna Magna: Limited Views Corpus Callosum: Within Normal Limits Midline Falx: Within Normal Limits Spine Cervical: Visualized Thoracic: Visualized Lumbar: Visualized Sacral: Visualized Shape/Curvature: Visualized Head/Neck Face: Within Normal Limits Lips: Within Normal Limits Ear Position/Size: Visualized Neck: Within Normal Limits Nuchal Fold: Not evaluated at this Nasal Bone: Present Profile: Visualized Orbits/Eyes: Visualized Mandible: Visualized Maxilla: Visualized Thorax Thoracic Contour: Within Normal Limits Lungs: Visualized 4 Chamber View: Within Normal Limits Cardiac Motion: Normal Rhythm Rt Outflow Tract: Visualized Lt Outflow Tract: Visualized Aortic Arch: Visualized Ductal Arch: Visualized SVC: Visualized Cardiac [place]: Visualized Diaphragm: Visualized 3 Vessel View: Visualized IVC: Visualized Abdomen Ventral Wall: Not visualized due to Cord Insertion: Visualized Situs: Normal Stomach: Visualized Liver: Visualized Lt Kidney: Visualized Rt Kidney: Visualized Bladder: Visualized Bowel: Visualized Extremities Lt Humerus: Within Nomal Limits Rt Humerus: Within Normal Limits Lt Forearm: Within Normal Limits Rt Forearm: Within Normal Limits Lt Hand: Limited Views Rt Hand: Limited Views Lt Femur: Within Normal Limits Rt Femur: Within Normal Limits Lt Lower Leg: Within Normal Limits Rt Lower Leg: Within Normal Limits Lt Foot: Limited Views Rt Foot: Limited Views Other Umbilical Cord: 3 vessel cord DOPPLER - VESSELS: Umbilical Artery S/D %tile RI %tile PSV ADFV RDFV (cm/s) 4.26 > 97.5 0.77 97.0 23.84 No No CERVIX UTERUS ADNEXA: Left Ovary Size(cm) 2.75 x 1.72 x 1.47 Vol(ml): 3.6 Visualized Right Ovary Size(cm) 2.73 x 2.17 x 1.69 Vol(ml): 5.2 Visualized IMPRESSION 3rd Trimester Summary Single intrauterine with a gestational age of 31w 4d based on Early Ultrasound (01/26/17). Composite age based on the current ultrasound alone is 27w 5d. Estimated weight corresponds to the < 5th percentile for 31w 4d. Current growth parameters are consistent with prior dating indicating SGA fetus. Amniotic fluid volume is Appropriate for gestational age, MONICA = 11.76 cm, MVP = 4.83 cm Normal U/A Doppler, performed due to all paraments less than 3rd%tile. BPP---05/05---no breathing observed. Anatomical survey is limited due to the late gestational age. I viewed the images and agree with the above interpretation. Sarah Donnelly MD Electronically Signed Final Report 07/01/2017 11:22 am Catrachita Yu MD IMG US OB ORDERABLES documented in this encounter Visit Diagnoses Diagnosis Ultrasound for screening for growth restriction screening for growth retardation using ultrasonics Ultrasound for screening for growth restriction screening for growth retardation using ultrasonics documented in this encounter Care Teams Mortgage Manager Relationship Specialty Start Date End Date Maxx Granda MD [address] [place] [id number] PCP - General 10/20/10 08/01/17 documented as of this encounter
--- OUTSIDE RECORDS SUMMARY | 2024-07-20 21:50 | XMS_ITS | Encounter Summary ---
Author Organization [facility] Address [facility] [place] [address] Care Team Providers Care Manager Servicing Name Role Phone Maxx Granda MD Primary Care Provider [phone] Encounter Details Date Type Department Care Team (Latest Contact Info) Description 07/21/2017 11:30 AM EDT - 07/21/2017 11:59 PM EDT Hospital [place] [id number] Sarah Donnelly MD [facility] [address] [place] [address] IUGR (intrauterine growth restriction) affecting care of mother, third trimester, not applicable or unspecified fetus Discharge Disposition: Home Social History Tobacco Use Types Packs/Day Years Used Date Smoking Tobacco: Every Day Cigarettes Smokeless Tobacco: Never Comments:doesn't smoke with patch on, 3 a day at most Alcohol Use Standard Drinks/Week Comments No 0 (1 standard drink = 0.6 oz pur e alcohol) Comments Yes Sex and Gender Information Value Date Recorded Sex Assigned at Not on file Gender Identity Not on file Sexual Orientation Not on file documented as of this encounter Medications at Time of Discharge Medication Sig Dispensed Refills Start Date End Date levothyroxine (SYNTHROID) 50 mcg Tablet Take 1 tablet by mouth daily. 30 tablet 3 07/21/2017 vitamin with [id number]-[id number] Tablet Take by mouth. nicotine (NICODERM CQ) 14 mg/[address] 1 patch onto the skin daily. 28 patch 3 07/01/2017 documented as of this encounter Plan of Treatment Not on file documented as of this encounter Procedures Procedure Name Priority Date/Time Associated Diagnosis Comments US OB UMBILICAL ARTERY DOPPLER Routine 07/21/2017 12:11 PM EDT IUGR (intrauterine growth restriction) affecting care of mother, third trimester, not applicable or unspecified fetus documented in this encounter Results * US OB Umbilical Artery Doppler (07/21/2017 12:11 PM EDT) Anatomical Region Laterality Modality Pelvis, Abdomen Ultrasound 07/21/2017 11:4 0 AM EDT Impressions 07/21/2017 1:38 PM EDT 3rd Trimester Summary ( BPP ONLY) Single intrauterine with a gestational age of 34w 3d based on Early Ultrasound ??(01/26/17) Amniotic fluid volume is Normal, MONICA = 8.02 cm, MVP = 3.04 cm Reassuring biophysical profile 07/05 Normal UA Doppler, without AEDF or REDF. ??I ??viewed the images and agree with the above interpretation. ? Yumiko Hoang MD Electronically Signed Final Report ?? 07/21/2017 01:37 pm Narrative 07/21/2017 1:38 PM EDT OBSTETRICS REPORT ? (Signed Final 07/21/2017 01:37 pm) PATIENT INFO: ID #: ? [id number] ?: ??[birth year] (16 yrs) Name: ? STEPHANIE GAONA ?Visit Date: 07/21/2017 11:40 am PERFORMED BY: Performed By: ? Josy Wolfe RDMS Attending: ?Yumiko Hoang MD ??Angelina Referred By: ?MIRZA CANALES CNM Location: ? [employer] SERVICE(S) PROVIDED: ??UOBUA - Umbilical Artery Doppler - [id number] ?[id number] ??UBPP - Biophysical Profile - [id number] ? [id number] INDICATIONS: ??34 weeks gestation of ?Z3A.34 ??MONICA & UA OB HISTORY: Blood ?B+ ?Height: ??5'2 ?Weight (lb): 151 ? BMI: ??27.62 Type: : ?1 EVALUATION: Num Of Fetuses: ? 1 Heart ? 141 Rate(bpm): Cardiac Activity: ?? Observed, normal rhythm Presentation: ? Cephalic Placenta: ? Posterior P. Cord Insertion: ??Within Normal Limits Amniotic Fluid MONICA FV: ?Normal MONICA Sum(cm) ? Largest Pocket(cm) 8.02 ?3.04 RUQ(cm) ? RLQ(cm) ? LUQ(cm) ?LLQ(cm) 3.04 ?2.14 ?0.0 ?2.84 BIOPHYSICAL EVALUATION: Amniotic F.V: ?? Within normal limits ? F. Tone: ??Observed F. Movement: ?Observed ? Score: ??07/05 F. Breathing: ?? Observed --------- BIOMETRY: --------- GESTATIONAL AGE: Best: ?34w 3d ?? Det. By: ??Early ?RADHA: ?? 08/29/17 ? Ultrasound ? (01/26/17) DOPPLER - VESSELS: Umbilical Artery ??S/D ? %tile ? RI ?%tile ? PI ?%tile ? PSV ?ADFV ?RDFV ?(cm/s) 3.74 ?95.0 ??0.73 ?94.0 ?? 1.27 ? 97.0 ?37.08 ?No ?No Comment: ? Normal UA doppler. CERVIX UTERUS ADNEXA: Left Ovary Not visualized Right Ovary Not visualized Procedure Note Yumiko Hoang MD - 07/21/2017 OBSTETRICS REPORT (Signed Final 07/21/2017 01:37 pm) PATIENT INFO: ID #: [id number] : [birth year] (16 yrs) Name: STEPHANIE GAONA Visit Date: 07/21/2017 11:40 am PERFORMED BY: Performed By: Josy Wolfe RDMS Attending: Yumiko Hoang MD Referred By: MIRZA CANALES [facility] Location: [employer] SERVICE(S) PROVIDED: UOBUA - Umbilical Artery Doppler - [id number] [facility] - Biophysical Profile - [id number] INDICATIONS: 34 weeks gestation of Z3A.34 MONICA & UA OB HISTORY: Blood B+ Height: 5'2 Weight (lb): 151 BMI: 27.62 Type: : 1 EVALUATION: Num Of Fetuses: 1 Heart 141 Rate(bpm): Cardiac Activity: Observed, normal rhythm Presentation: Cephalic Placenta: Posterior P. Cord Insertion: Within Normal Limits Amniotic Fluid MONICA FV: Normal MONICA Sum(cm) Largest Pocket(cm) 8.02 3.04 RUQ(cm) RLQ(cm) LUQ(cm) LLQ(cm) 3.04 2.14 0.0 2.84 BIOPHYSICAL EVALUATION: Amniotic F.V: Within normal limits F. Tone: Observed F. Movement: Observed Score: 07/05 F. Breathing: Observed --------- BIOMETRY: --------- GESTATIONAL AGE: Best: 34w 3d Det. By: Early RADHA: 08/29/17 Ultrasound (01/26/17) DOPPLER - VESSELS: Umbilical Artery S/D %tile RI %tile PI %tile PSV ADFV RDFV (cm/s) 3.74 95.0 0.73 94.0 1.27 97.0 37.08 No No Comment: Normal UA doppler. CERVIX UTERUS ADNEXA: Left Ovary Not visualized Right Ovary Not visualized IMPRESSION 3rd Trimester Summary ( BPP ONLY) Single intrauterine with a gestational age of 34w 3d based on Early Ultrasound (01/26/17) Amniotic fluid volume is Normal, MONICA = 8.02 cm, MVP = 3.04 cm Reassuring biophysical profile 8/8 Normal UA Doppler, without AEDF or REDF. I viewed the images and agree with the above interpretation. Yumiko Hoang MD Electronically Signed Final Report 07/21/2017 01:37 pm Sarah Donnelly MD IMG US OB ORDERABL ES documented in this encounter Visit Diagnoses Diagnosis IUGR (intrauterine growth restriction) affecting care of mother, third trimester, not applicable or unspecified fetus documented in this encounter Care Teams Manager Servicing Relationship Specialty Start Date End Date Maxx Granda MD [address] [place] [address] PCP - General 10/20/10 08/01/17 documented as of this encounter
--- OUTSIDE RECORDS SUMMARY | 2024-07-20 21:50 | XMS_ITS | Encounter Summary ---
Author Organization [facility] Address [facility] [place] [address] Care Team Providers Care Mixing Operator Name Role Phone Maxx Granda MD Primary Care Provider [phone] Reason for Visit * Reason Comments Routine Visit Non-stress Test Encounter Details Date Type Department Care Team ([facility] st Contact Info) Description 07/28/2017 2:45 PM EDT Routine Obstetrics [place] [id number] Catrachita Yu MD [facility] OBSTETRICS [place] [address] GA: [id number] Social History Tobacco Use Types Packs/Day Years [...] on file documented as of this encounter Last Filed Vital Signs Vital Sign Reading Time Taken Comments Blood Pressure 113/74 07/28/2017 2:13 PM EDT Pulse - - Temperature - - Respiratory Rate - - Oxygen Saturation - - Inhaled Oxygen Concentration - - Weight 68.9 kg (152 lb) 07/28/2017 2:13 PM EDT Height - - Body Mass Index 27.8 07/07/2017 11:55 AM EDT Body Mass Index Percentile 90.28% 07/28/2017 2:1 3 PM EDT Growth Chart: CDC (Girls, 2- 20 Years) documented in this encounter Progress Notes * Linette Field RN - 07/28/2017 2:45 PM EDT NST for IUGR. Stephanie missed her NST at [facility] this week - she forgot the appt and her cell phone number wa changed so no one was able to call her. 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 No LOF, bleeding or contractions. Asking for a work note today to say she can keep working. Group B strep information given and explained. GBS collected. First dose of betamethasone 12 mg IM given in right buttock. Will be seen tomorrow at [facility] for her second dose. IOL scheduled - information sheet reviewed, when to call BP. * Radha Montgomery RN - 07/28/2017 2:45 PM EDT NST Fetus A 07/28/2017 HR (Beats/Min) 120 HR Variability moderate (amplitude range 6 to 25 bpm) HR Accelerations present HR Decelerations none Contraction Frequency (Minutes) none Nonstress Test Interpretation - Overall Impression Reassuring for gestational age Comments REVIEWED BY dR Yu * Catrachita Yu MD - 07/28/2017 2:45 PM EDT Maternal Medicine follow up visit Patient Active Problem List Diagnosis Code ??? IUGR (intrauterine growth restriction) affecting care of mother O36.5990 ??? Attention deficit disorder (ADD) without hyperactivity F98.8 ??? Depression F32.9 ??? Learning difficulty F81.9 ??? Marijuana use F12.10 RADHA 08/29/17 at 35 3/7 week's gestation Chief complaint: follow up ultrasound Subjective: Feels well. She denies bleeding, leaking of fluid, pain or regular contractions. She notes good movement. Objective: Appears well Vitals: 07/28/17 1413 BP: 113/74 Abdomen soft, nontender Ultrasound Growth small for gestational age EGA 30 2/7 weeks EFW 1537 grams at <5th percentile Amniotic fluid volume normal Placenta posterior Presentation cephalic Morphology No structural abnormality Umbilical artery Doppler normal NST: reactive Assessment: There has been no interval growth in the past two weeks, and the baby is profoundly growth restricted. Despite normal testing including Doppler, I have sufficient concern to recommend delivery. Plan: We will give a course of steroids today and tomorrow and have her present in 3 days for induction of labor. GBS test today Catrachita Yu MD 07/28/2017 Cc: Noris Velasco CNM documented in this encounter Plan of Treatment Not on file documented as of this encounter Procedures Procedure Name Priority Date/Time Associated Diagnosis Comments GROUP B STREPTOCOCCUS SCREEN Routine 07/28/2017 6:01 PM EDT GROUP B STREP CULTURE SCREEN Routine 07/28/2017 6:01 PM EDT IUGR (intrauterine growth restriction) affecting care of mother, third trimester, fetus 1 documented in this encounter Results * Group B Streptococcus Screen (07/28/2017 6:01 PM EDT) GBS Screen Pos [facility] Pooled specimen from vaginal introitus and rectal swab (specimen) 07/28/2017 6:01 PM EDT 07/28/2017 6:01 PM EDT Comment:Penicillin Allergy?- >No Narrative Resulting Agency Comment Spec In Lab Catrachita Yu MD MICROBIOLOGY - GENER AL ORDERABLES [facility] [place] [address] * (ABNORMAL) Group B Strep Culture Screen (07/28/2017 6:01 PM EDT) Group B Streptococcus Culture Beta Hemolytic Streptococci, Group B isolated(A) [facility] Organism Beta Hemolytic Streptococci, Group B(A) [facility] Pooled specimen from vaginal introitus and rectal swab (specimen) 07/28/2017 6:01 PM EDT 07/28/2017 6:01 PM EDT Comment:PENICILLIN ALLERGY?- >NO Narrative Resulting Agency Comment Spec In Lab Catrachita Yu MD MICROBIOLOGY - GENER AL ORDERABLES [facility] [place] [address] documented in this encounter Visit Diagnoses Diagnosis IUGR (intrauterine growth restriction) affecting care of mother, third trimester, fetus 1 documented in this encounter Administered Medications Inactive Administered Medications - up to 3 most recent administrations Medication Order MAR Action Action Date Dose Rate Site betamethasone acetate-betamethasone sodium phosphate (CELESTONE) injection 12 mg 12 mg, Intramuscular, EVERY 24 HOURS, 2 doses, First dose on Nenita 07/28/17 at 1600, Last dose on Tue07/29/17 at 1600, Routine Given 07/28/2017 3:52 PM EDT 12 mg Right Gluteal documented in this encounter Care Teams Mixing Operator Relationship Specialty Start Date End Date Maxx Granda MD [address] [place] [id number] PCP - General 10/20/10 08/01/17 documented as of this encounter
--- OUTSIDE RECORDS SUMMARY | 2024-07-20 21:50 | XMS_ITS | Encounter Summary ---
Author Organization [facility] Address [facility] [place] [address] Care Team Providers Care Alcohol Still Operator Name Role Phone Maxx Granda MD Primary Care Provider [phone] Encounter Details Date Type Department Care Team (Latest Contact Info) Description 07/14/2017 1:10 PM EDT - 07/14/2017 11:59 PM EDT Hospital [place] [phone] Sarah Donnelly MD [facility] [address] OBSTET[place]ICS [place] [address] IUGR (intrauterine growth restriction) affecting care of [...] Sig Dispensed Refills Start Date End Date vitamin with [id number] Tablet Take by mouth. nicotine (NICODERM CQ) 14 mg/[address] 1 patch onto the skin daily. 28 patch 3 07/01/2017 levothyroxine (SYNTHROID) 50 mcg Tablet TAKE ONE TABLET BY MOUTH EVERY DAY 3 02/27/2017 07/21/2017 documented as of this encounter Plan of Treatment Not on file documented as of this encounter Procedures Procedure Name Priority Date/Time Associated Diagnosis Comments US OB FOLLOW UP Routine 07/14/2017 2:17 PM EDT IUGR (intrauterine growth restriction) affecting care of mother, third trimester, not applicable or unspecified fetus documented in this encounter Results * US OB Follow Up Evaluation (07/14/2017 2:17 PM EDT) Anatomical Region Laterality Modality Pelvis, Abdomen Ultrasound 07/14/2017 1:32 PM EDT Impressions 07/14/2017 5:28 PM EDT 3rd Trimester Summary Single intrauterine with a gestational age of 33w 3d based on Early Ultrasound ??(01/26/17). Composite age based on the current ultrasound alone is 29w 5d. Estimated weight corresponds to the < 5th percentile for 33w 3d. Amniotic fluid volume is appropriate for gestational age, MONICA = 11.8 cm, MVP = 4.6 cm. Anatomical survey is limited due to the late gestational age. ?? No structural abnormalities visualized. Reassuring Biophysical Profile observed, 07/05. Umbilical Artery Dopplers were preformed due to IUGR fetus. Normal UA dopplers demonstrated. I ??viewed the images and agree with the above interpretation. ?Sarah Donnelly MD Electronically Signed Final Report ?? 07/14/2017 05:27 pm Narrative 07/14/2017 5:28 PM EDT OBSTETRICS REPORT ? (Signed Final 07/14/2017 05:27 pm) PATIENT INFO: ID #: ? [id number] ?: ??[birth year] (16 yrs) Name: ? STEPHANIEHENRIQUE GAONA ?Visit Date: 07/14/2017 01:32 pm PERFORMED BY: Performed By: ? Macy Alonzo RDMS Attending: ?Andrzej MENDOZA, Sarah Ruffin Referred By: ?MIRZA CANALES CNM Location: ? [facility] SERVICE(S) PROVIDED: ??UOBFOL - Efw - Growth - Shen - [id number] ? [id number] ??UBPP - Biophysical Profile - [id number] ? [id number] ??UOBUA - Umbilical Artery Doppler - [id number] ?[id number] INDICATIONS: ??33 weeks gestation of ?Z3A.33 ??growth, BPP, UA SD, fluid OB HISTORY: Blood ?B+ ?Height: ??5'2 ?Weight (lb): 147 ? BMI: ??26.88 Type: : ?1 EVALUATION: Num Of Fetuses: ? 1 Cardiac Activity: ?? Observed, normal rhythm Presentation: ? Cephalic Placenta: ? Posterior Amniotic Fluid MONICA FV: ?Appropriate for gestational age MONICA Sum(cm) ? Largest Pocket(cm) 11.8 ?4.6 RUQ(cm) ? RLQ(cm) ? LUQ(cm) ?LLQ(cm) 2.6 ? 2.8 ? 4.6 ?1.8 BIOPHYSICAL EVALUATION: Amniotic F.V: ?? Pocket => 2 cm two ? F. Tone: ??Observed ? planes F. Movement: ?Observed ? Score: ??8/8 F. Breathing: ?? Observed --------- BIOMETRY: --------- BPD: ?70.0 ??mm ? G.Age: ?? 28w 1d ? < 3 ??% HC: ?275.0 ??mm ? G.Age: ?? 30w 0d ? < 3 ??% AC: ?256.0 ??mm ? G.Age: ?? 29w 6d ? < 3 ??% FL: ? 59.0 ??mm ? G.Age: ?? 30w 6d ? < 3 ??% HUM: ?50.0 ??mm ? G.Age: ?? 29w 2d ? < 5 ??% CER: ?40.0 ??mm ? G.Age: ?? 34w 0d ?56 ??% LV: ?4.2 ??mm CM: ?4.0 ??mm CI: ? 66.57 ??% ? 70 - 86 FL/HC: ? 21.5 ??% ? 19.9 - 21.5 HC/AC: ? 1.07 ?0.96 - 1.11 FL/BPD: ?84.3 ??% ? 71 - 87 FL/AC: ? 23.0 ??% ? 20 - 24 Est. FW: ?1493 ?? gm ? 3 lb 5 oz ? < 5 ??% GESTATIONAL AGE: U/S Today: ? 29w 5d ?RADHA: ?? 09/24/17 Best: ?33w 3d ?? Det. By: ??Early ?RADHA: ?? 08/29/17 ? Ultrasound ? (01/26/17) -------- ANATOMY: -------- Cranium: ? Limited views Cavum: ? Visualized Ventricles: ?Within Normal Limits Choroid Plexus: ?Not visualized due to late gestational a Cerebellum: ?Limited views Posterior Fossa: ? Limited views Nuchal Fold: ? Not evaluated at this gestational age Face: ?Limited views Heart: ? Limited Views RVOT: ?Limited views LVOT: ?Limited views Diaphragm: ? Visualized Stomach: ? Visualized Abdomen: ? Limited Views Abdominal Wall: ?Not visualized due to late gestational a Cord Vessels: ?3-vessels- WNL Kidneys: ? Visualized Bladder: ? Visualized Spine: ? Limited views Upper Extremities: ? Limited views Lower Extremities: ? Limited views DOPPLER - VESSELS: Umbilical Artery ??S/D ? %tile ? RI ?%tile ? PSV ?ADFV ?RDFV ?(cm/s) ??4.3 ?> 97.5 ??0.77 ?> 97.5 ? 40.3 ?No ?No CERVIX UTERUS ADNEXA: Left Ovary Not visualized Right Ovary Not visualized Procedure Note Sarah Donnelly MD - 07/14/2017 OBSTETRICS REPORT (Signed Final 07/14/2017 05:27 pm) PATIENT INFO: ID #: [id number] : [birth year] (16 yrs) Name: STEPHANIE GAONA Visit Date: 07/14/2017 01:32 pm PERFORMED BY: Performed By: Macy Alonzo RDMS Attending: Sarah Donnelly MD Referred By: MIRZA BROWN Location: [facility] SERVICE(S) PROVIDED: UOBFOL - Efw - Growth - Shen - [id number] UBPP - Biophysical Profile - [id number] UOBUA - Umbilical Artery Doppler - [id number] INDICATIONS: 33 weeks gestation of Z3A.33 growth, BPP, UA SD, fluid OB HISTORY: Blood B+ Height: 5'2 Weight (lb): 147 BMI: 26.88 Type: : 1 EVALUATION: Num Of Fetuses: 1 Cardiac Activity: Observed, normal rhythm Presentation: Cephalic Placenta: Posterior Amniotic Fluid MONICA FV: Appropriate for gestational age MONICA Sum(cm) Largest Pocket(cm) 11.8 4.6 RUQ(cm) RLQ(cm) LUQ(cm) LLQ(cm) 2.6 2.8 4.6 1.8 BIOPHYSICAL EVALUATION: Amniotic F.V: Pocket => 2 cm two F. Tone: Observed planes F. Movement: Observed Score: 07/05 F. Breathing: Observed --------- BIOMETRY: --------- BPD: 70.0 mm G.Age: 28w 1d < 3 % HC: 275.0 mm G.Age: 30w 0d < 3 % AC: 256.0 mm G.Age: 29w 6d < 3 % FL: 59.0 mm G.Age: 30w 6d < 3 % HUM: 50.0 mm G.Age: 29w 2d < 5 % CER: 40.0 mm G.Age: 34w 0d 56 % LV: 4.2 mm CM: 4.0 mm CI: 66.57 % 70 - 86 FL/HC: 21.5 % 19.9 - 21.5 HC/AC: 1.07 0.96 - 1.11 FL/BPD: 84.3 % 71 - 87 FL/AC: 23.0 % 20 - 24 Est. FW: 1493 gm 3 lb 5 oz < 5 % GESTATIONAL AGE: U/S Today: 29w 5d RADHA: 09/24/17 Best: 33w 3d Det. By: Early RADHA: 08/29/17 Ultrasound (01/26/17) -------- ANATOMY: -------- Cranium: Limited views Cavum: Visualized Ventricles: Within Normal Limits Choroid Plexus: Not visualized due to late gestational a Cerebellum: Limited views Posterior Fossa: Limited views Nuchal Fold: Not evaluated at this gestational age Face: Limited views Heart: Limited Views RVOT: Limited views LVOT: Limited views Diaphragm: Visualized Stomach: Visualized Abdomen: Limited Views Abdominal Wall: Not visualized due to late gestational a Cord Vessels: 3-vessels- WNL Kidneys: Visualized Bladder: Visualized Spine: Limited views Upper Extremities: Limited views Lower Extremities: Limited views DOPPLER - VESSELS: Umbilical Artery S/D %tile RI %tile PSV ADFV RDFV (cm/s) 4.3 > 97.5 0.77 > 97.5 40.3 No No CERVIX UTERUS ADNEXA: Left Ovary Not visualized Right Ovary Not visualized IMPRESSION 3rd Trimester Summary Single intrauterine with a gestational age of 33w 3d based on Early Ultrasound (01/26/17). Composite age based on the current ultrasound alone is 29w 5d. Estimated weight corresponds to the < 5th percentile for 33w 3d. Amniotic fluid volume is appropriate for gestational age, MONICA = 11.8 cm, MVP = 4.6 cm. Anatomical survey is limited due to the late gestational age. No structural abnormalities visualized. Reassuring Biophysical Profile observed, 07/05. Umbilical Artery Dopplers were preformed due to IUGR fetus. Normal UA dopplers demonstrated. I viewed the images and agree with the above interpretation. Sarah Donnelly MD Electronically Signed Final Report 07/14/2017 05:27 pm Sarah Donnelly MD IMG US OB ORDERABL ES documented in this encounter Visit Diagnoses Diagnosis IUGR (intrauterine growth restriction) affecting care of mother, third trimester, not applicable or unspecified fetus documented in this encounter Care Teams Alcohol Still Operator Relationship Specialty Start Date End Date Maxx Granda MD [address] [place] [id number] PCP - General 10/20/10 08/01/17 documented as of this encounter
--- OUTSIDE RECORDS SUMMARY | 2024-07-20 21:50 | XMS_ITS | Encounter Summary ---
Author Organization [place] [address] Care Team Providers Care [employer] Senior Officer Name Role Phone Maxx Granda MD Primary Care Provider [phone] Reason for Visit * Reason Onset Date Comments No Show 07/26/2017 Encounter Details Date Type Department Care Team ([facility] st Contact Info) Description 07/26/2017 Telephone Obstetrics [place] [phone] Linette Field RN No Show Social History Tobacco Use Types Packs/Day Years [...] as of this encounter Miscellaneous Notes * Telephone Encounter - Linette Field RN - 07/26/2017 9:52 AM EDT Stephanie did not go to her scheduled NST yesterday @ [facility], kiln maintenance from the OBGyn service called to report this. I have attempted to contact Stephanie to see how she is doing - the number is no longer in service. She is currently scheduled for 07/28/17 @ [facility] for u/[place], NST and visit. documented in this encounter Plan of Treatment Not on file documented as of this encounter Visit Diagnoses Not on filedocumented in this encounter Care Teams [employer] Senior [employer] Relationship Specialty Start Date End Date Maxx Granda MD [address] [place] [address] PCP - General 10/20/10 08/01/17 documented as of this encounter
--- OUTSIDE RECORDS SUMMARY | 2024-07-20 21:50 | XMS_ITS | Encounter Summary ---
Author Organization [facility] [place] [address] Care Team Providers Care Employment Appeals Examiner Name Role Phone Maxx Granda MD Primary Care Provider [phone] Reason for Visit * Reason Onset Date Comments Follow-up 06/24/2017 Appointments set up and need for local fu Encounter Details Date Type Department Care Team (Late st Contact Info) Description 06/24/2017 Telephone Obstetrics [place] [phone] Maritza Laurent [facility] OBSTETRICS & [place] [address] Follow-up (Appointments set up and need for local fu) Social History Tobacco Use Types Packs/Day Years Used Date Smoking Tobacco: Never Assessed Sex and Gender Information Value Date Recorded Sex Assigned at Not on file Gender Identity Not on file Sexual Orientation Not on file documented as of this encounter Miscellaneous Notes * Telephone Encounter - Maritza Laurnet MS - 06/24/2017 10:53 AM EDT I reviewed this case with Catrachita Yu MD. The patient was unable to come here until TuesdayJuly 01. Dr. Yu suggested that the local provider schedule a nonstress test on Tuesday or Tuesday of next week since patient unable to come on Tuesday here. Spoke to Janina who was going to follow up and arrange for this. documented in this encounter Plan of Treatment Not on file documented as of this encounter Visit Diagnoses Not on filedocumented in this encounter Care Teams Employment Appeals Examiner Relationship Specialty Start Date End Date Maxx Granda MD [address] [place] [id number] PCP - General 10/20/10 08/01/17 documented as of this encounter
--- OUTSIDE RECORDS SUMMARY | 2024-07-20 21:50 | XMS_ITS | Encounter Summary ---
Author Organization [facility] Address [facility] [place] [address] Care Team Providers Care Distribution A Class Lineman Name Role Phone Maxx Granda MD Primary Care Provider [phone] Reason for Visit * Auth/Cert Specialty Diagnoses / Procedures Referred By Quan t Referred To Contact Diagnoses IUGR (intrauterine growth restriction) affecting care of mother, third trimester, fetus 1 Procedures L&D Referral ID Status Reason Start Date Expiration Date Visits Re quested Visits Authorized [id number] 1 1 Encounter Details Date Type Department Care Team (Late st Contact Info) Description 08/01/2017 10:10 AM EDT - 08/01/2017 11:44 [place] [id number] Catrachita Agustin MD [facility] [place] [address] CURRETTAGE, (WRVU 2.76) Social History Tobacco Use Types Packs/Day Years [...] Mass Index 27.8 07/30/2017 12:53 PM EDT Body Mass Index Percentile 90.27% 07/30/2017 12: 53 PM EDT Growth Chart: CDC (Girls, 2- 20 Years) documented in this encounter Discharge Summaries * Meena Holder - 08/03/2017 2:04 PM EDT Discharge Summary Patient Name: Stephanie Nix Patient Age: 16 y.o. Language: Polish Race: White Ethnicity: Not nor Admit date: 07/30/2017 Discharge date and time: 08/03/2017 2:08 PM Attending Physician: Catrachita Agustin MD Discharge Physician: Sarah Richmond MD Care Provider: [facility] Follow-up Recommendations for Providers: 2 week depression screen 6 week visit Inpatient Provider Contact Information: [facility] [employer] Department, Discharge Diagnoses (Hospital Problems) and Secondary Diagnoses (Chronic Problems) Active Hospital Problems Diagnosis ??? IUGR (intrauterine growth restriction) affecting care of mother ??? Hypothyroidism ??? History of tobacco use ??? Supervision of normal first teen in third trimester ??? Positive GBS test ??? Maternal varicella, non-immune ??? Marijuana use ??? Attention deficit disorder (ADD) without hyperactivity ??? Depression Resolved Hospital Problems Diagnosis Date Resolved No resolved problems to display. Operations/Major Procedures: Induction of labor, spontaneous vaginal delivery, dilation and curettage for retained placenta Indication for Admission: Induction of labor for IUGR History of Presentation and admission History (per admit note cut and paste) Stephanie Nix is a 16 y.o. at 35w5d gestation who is here for IOL for IUGR with no interval growth in two weeks. Stephanie is nervous about her induction, but is overall feeling well. Denies vaginal bleeding, leakage of fluid, or contractions. Reports good movements. ?? Her has been complicated by: ?? IUGR: Transfer of care to [facility] at 32w3d for IUGR. On 07/28 ultrasound, there was no interval growth over two weeks with profound growth restriction. Normal dopplers with reactive NST. Steroids completed as an outpatient prior to admission. ?? ADD: was taking Ritalin and Foclain in first early trimester, but stopped once she found out shewas . ?? Depression: Not on medications currently. ?? Marijuana use in : Consented to ELIZABETH. ?? Cigarette smoker: Currently smoking 2-5 cigarettes/day. Would like nicotine patch. ?? Asthma: has used inhaler occasionally in . ?? Hypothyroidism: dx in , however did not take synthroid consistently. TSH on 07/14 was 3.31, increased synthroid to 50mg at that time. ?? Varicella non-immune ?? Is expecting a male infant, to be named Bart. Would like an epidural for pain management. Plans on and using a Mirena IUD for control. Presents with boyfriend, Ann, and her parents. Hospital Course Including Delivery and Events Induction was started with oral misoprostol and IV PCN was started for GBS positive status. She wasinduced with 24 hours oral misoprostol followed by cervical Ibrahim bulb and pitocin. Due to non-reassuring heart tracing pitocin was discontinued and induction was continued with AROM after which she underwent a normal progression of labor and delivered via spontaneous vaginal delivery of a small for gestational age weighing 1670g. ?? course was complicated by increased uterine bleeding noted 1 hour after delivery. Approximately 300 mLs of clot was evacuated in the room with continued bleeding so the decision was made to proceed to the OR for a dilation and curettage. Her D&C was revealed a small amount of retained membranes in the decidua which was extracted. Total EBL for both delivery and procedure was 1300 cc. She was able to tolerate a regular diet and ambulate without difficulty. Her pain was well-controlled on oral medications by the time of discharge. She was discharged home on day #2 in stable condition with follow-up in place. We discussed discharge instructions and plan of care, all questions answered. Delivery Information Information for the patient's : Rita Nix [[id number]] INFORMATION Rita Nix 08/01/2017 6:05 AM by Vaginal, Spontaneous Delivery Sex: male Gestational Age: 36w0d Measurements: Weight: 3 lb 10.9 oz (1670 g) APGARS One Minute Five Minutes Ten Minutes Totals: 9 9 EBL: 1300 cc Vital signs at Discharge: BP: 125/73, Heart Rate: 69, Temp: 36.8 ??C (98.2 ??F), Resp: 17, BMI (Calculated): 27.8 Height: 157.5 cm (5' 2) (07/30/17 1253) Weight - Scale: 68.9 kg (152 lb) (07/30/17 1253) Functional and Cognitive status: Stable, at baseline Important Studies and Lab Data: Recent Labs 08/01/17 1710 08/01/17 1010 07/30/17 1325 WBC 22.8* 28.1* 21.1* HGB 9.5* 11.1* 12.1 HCT 26.2* 32.2* 33.8* PLATELET 248 302 310 ELIZABETH Screen w/ Confirmation Result Value Ref Range U Barbiturates Screen None Detected None Detected U Benzodiazepines Screen None Detected None Detected U Cocaine Screen None Detected None Detected U Methadone Metabolites Screen None Detected None Detected U Opiate Screen None Detected None Detected U Cannabinoid Screen Presumptive Pos (A) None Detected U Oxycodone Screen None Detected None Detected U Buprenorphine Screen None Detected None Detected U Fentanyl Screen None Detected None Detected U Tricyclics Screen None Detected None Detected U Ethanol Screen None Detected None Detected U Amphetamines Screen None Detected None Detected U Adulterants Screen None Detected None Detected Studies: None Pending Studies and Lab Data: Final placental pathology pending Discharge Conditions/Prognosis: good Discharge to: Home Contraceptive Plans: Prescribed Micronor, desires Mirena IUD at 6 week visit Allergies at Discharge: No Known Allergies Immunizations Given this Hospitalization: Immunization History Administered Date(s) Administered ??? Varicella Vaccine, LIVE 08/03/2017 Discharge Medications: Your Medications New Medications Dose Details acetaminophen 325 mg Tab Commonly known as: TYLENOL Take 2 tablets by mouth every 4 hours as needed for Pain. 650 mg Quantity: 30 tablet Refills: 1 ibuprofen 200 mg Tab Commonly known as: ADVIL;MOTRIN Take 3 tablets by mouth every 6 hours as needed for Pain. 600 mg Refills: 0 norethindrone 0.35 mg Tab Commonly known as: MICRONOR Take 1 tablet by mouth daily. 1 tablet Quantity: 84 tablet Refills: 3 Continued medications, unchanged Dose Details levothyroxine 50 mcg Tab Commonly known as: SYNTHROID Take 1 tablet by mouth daily. 50 mcg Quantity: 30 tablet Refills: 3 nicotine 14 mg/24 hr Pt24 Commonly known as: NICODERM CQ Place 1 patch onto the skin daily. 1 patch Quantity: 28 patch Refills: 3 vitamin with [id number]-FA Tab Take by mouth. Refills: 0 Smoking Status at Discharge: History Smoking Status ??? Current Every Day Smoker ??? Packs/day: 0.25 ??? Types: Cigarettes Smokeless Tobacco ??? Never Used Comment: doesn't smoke with patch on, 3 a day at most Instructions Given to Patient at Discharge: Patient Instructions Patient Instructions Follow-up: 1. Two week phone call check in 2. Six week follow up with care provider Activity: Nothing in vagina until bleeding stops Do not lift more than 15 pounds No driving for two weeks if you had a section or if you are taking narcotic medication. Please call your OB provider for the following: Fever more than 100.5 degrees Heavy bleeding that saturates a pad an hour Increased abdominal pain, nausea , shaking chills Redness, increased pain, discharge at incision if you had a delivery. Increased pain in the area of stitches outside your vagina. Hot, hard, tender areas on the breast and feeling generally unwell. Depression Contact Numbers: If you see an project management instructor call: [phone] 9 am - 5 pm, after 5 pm If you see a shore man call: [phone] all hours If you see a family practitioner call: [phone] all hours If you were transferred to our institution for delivery and cannot reach your local OB provider, call the project management instructor numbers. General Instructions None Future Appointments and Orders Future Appointments Provider Department Dept Phone 09/14/2017 1:00 PM Sarah Richmond MD Obstetrics and Gynecology at [place] [phone] Future Orders Complete By Expires Durable Medical Equipment Order [[id number] Custom] As directed Process Instructions: Scheduling Instructions: Comments: Stephanie Nix [address] [facility] [address] (home) [employer] Central intake- #[phone] fax [phone] [place], [place] Nlmlzz-[phone] RX: Hospital Grade Electric Breast Pump- Lactina Breast Pump Length of Need: 3 Months Purpose of Appliance: To Initiate and Maintain Medical Necessity: /Lactating Mother- Z39.1 Breast Engorgement relative to infant born at 36 1/7 gestation - P92.9 Feeding problem of , unspecified Small for Gestational age infant (SGA)- P05.08 Premature Infant in ICN from mother- P07.30 Prematurity UBALDO 779.5 Questions: Name/Description of requested item: Medella breast pump Size requested: Vendor Name/Contact information: [employer] Follow-up [[id number] Custom] As directed Process Instructions: Scheduling Instructions: Comments: - visit 6 weeks after delivery with [facility] provider. - phone call 2 weeks after delivery for depression screening with [facility] provider. Questions: Discharge References/Attachments None documented in this encounter Discharge Instructions * Discharge Instructions* Kasia Parra RN - 08/03/2017 2:13 PM EDT Nurse Inpatient Note - Vaginal Delivery Follow-ups: 2-week telephone follow-up, 6-week appt with provider. Immunizations Received: [X] Varicella Maternal Discharge Instructions Rest: Although it may seem impossible to get enough rest, simple planning will help. Try to get at least one four hour block of uninterrupted sleep in 24 hours; then plan to rest, and/or sleep when your baby does. Limiting visitors also helps. Fathers and other family members can help by doing housework, caring for other children and/or helping limit visitors. Nutrition: Your diet following the of your baby is as important as it was before the baby wasborn. Drink a minimum of 6-8 glasses a day. Do not attempt to lose weight during the first six weeks. Continue taking your vitamins until they are gone. Lochia: (Flow) Your flow should be no heavier than a normal period. It will be bright red for 2-3 days and then pinkish and finally colorless. If your flow becomes bright red again, decrease your activity. Do not use tampons until your care provider advises you it is OK. Perineum: For about a week continue to rinse yourself with warm water when you use the toilet. A sitz bath with Epsom salts taken 3-4 times a day may help relieve soreness. Kegel exercise, done regularly throughout the day, will help tighten the perineal muscles and speed recovery. Breast Care for Formula feeding mothers: Wear a well fitting bra to support your breasts. Ice packsto your breasts and Tylenol or Ibuprofen may be used to relieve discomfort from engorgement. Avoid stimulating your breasts: Do not let warm water from the shower fall on them; avoid holding your baby near your breasts until your milk begins to decrease and engorgement is relieved. Breast feeding mothers: Practice careful positioning and frequent feeding as demonstrated in the hospital. The printed information in your packet covers this in detail. Call your doctor or shore man for: ??? Fever more than 100.5 ??? Heavy bleeding that saturates a pad an hour ??? Clots larger than a plum ??? Increased abdominal pain, nausea, shaking chills ??? Breast with hot, hard, tender areas on the breast plus flu-like symptoms ??? depression occurs in a large percentage of women. We encourage you to contact your provider or a member of the nursing staff if you are feeling so overwhelmed that you are unable to care for yourself or your baby. Keep your follow up appointment. You may call the [facility] at any time for guidance or for answers to questions that come up prior to you follow up appointment. Your [facility] Provider can be reached during office hours at ??? Midwives ??? Obstetricians ??? [facility] Follow-up Clinic ??? AFTER OFFICE HOURS for the project management instructor or shore man snuff container inspector * Patient Instructions* Meena Holder - 08/03/2017 1:52 PM EDT Patient Instructions Follow-up: 1. Two week phone call check in 2. Six week follow up with care provider Activity: Nothing in vagina until bleeding stops Do not lift more than 15 pounds No driving for two weeks if you had a section or if you are taking narcotic medication. Please call your OB provider for the following: Fever more than 100.5 degrees Heavy bleeding that saturates a pad an hour Increased abdominal pain, nausea , shaking chills Redness, increased pain, discharge at incision if you had a delivery. Increased pain in the area of stitches outside your vagina. Hot, hard, tender areas on the breast and feeling generally unwell. Depression Contact Numbers: If you see an project management instructor call: [phone] 9 am - 5 pm, after 5 pm If you see a shore man call: [phone] all hours If you see a family practitioner call: [phone] all hours If you were transferred to our institution for delivery and cannot reach your local OB provider, call the project management instructor numbers. documented in this encounter Medications at Time of Discharge Medication Sig Dispensed Refills Start Date End Date acetaminophen (TYLENOL) 325 mg Tablet Take 2 tablets by mouth every 4 hours as needed for Pain. 30 tablet 1 08/03/2017 ibuprofen (ADVIL;MOTRIN) 200 mg Tablet Take 3 tablets by mouth every 6 hours as needed for Pain. 08/03/2017 norethindrone (MICRONOR) 0.35 mg Tablet Take 1 tablet by mouth daily. 84 tablet 3 08/03/2017 levothyroxine (SYNTHROID) 50 mcg Tablet Take 1 tablet by mouth daily. 30 tablet 3 07/21/2017 vitamin with ehxruyjt-Nn-Uddy-FA Tablet Take by mouth. nicotine (NICODERM CQ) 14 mg/[address] 1 patch onto the skin daily. 28 patch 3 07/01/2017 documented as of this encounter Progress Notes * Ed Nichole Anshul - 08/03/2017 4:01 AM EDT Vaginal Delivery Note Information for the patient's : Rita Nix [[id number]] Delivery Date and Time:08/01/2017 6:05 AM Delivery Type: Vaginal, Spontaneous Delivery ID: Stephanie Nix is an 16 year old G1, now P0101 PPD#2 s/p after IOL for severely IUGR infant(wght 1670 gms) with course complicated by retained POCs necessitating methergine, misoprostol, and D&C, EBL 1300. additionally complicated by... ?? Psychiatric co-morbidities/Substance abuse ?? ADD: was taking Ritalin and Foclain in first early trimester, stopped once she found out she was. ?? Depression: Not on medications currently. ?? Marijuana use in : ELIZABETH on admission positive for cannabinoids only. ?? Cigarette smoker: Currently smoking 2-5 cigarettes/day. Nicotine patch ordered. ?? Asthma: occasional inhaler use in ?? Hypothyroidism: diagnosed in , however did not take synthroid consistently. TSH on 07/14was 3.31, increased synthroid to 50mg at that time. ?? Varicella non-immune Subjective: Denies chest pain, shortness of breath, difficulty breathing, leg pain, ambulating well, urinating well, passing flatus. Review of Systems Constitutional: Negative for chills and fever. HENT: Negative for congestion. Gastrointestinal: Negative for nausea and vomiting. Genitourinary: Negative for dysuria. Lochia: moderate Last Set of Vitals: Vitals: 08/02/17 2151 BP: 125/73 Pulse: 69 Resp: 17 Temp: 36.8 ??C (98.2 ??F) Weight - Scale: 68.9 kg (152 lb) Physical Exam Constitutional: She appears well-developed and well-nourished. No distress. Cardiovascular: Normal rate, regular rhythm and normal heart sounds. Abdominal: Soft. There is no rebound and no guarding. Musculoskeletal: Normal range of motion. She exhibits no edema or tenderness. Neurological: She is alert. Skin: Skin is warm and dry. She is not diaphoretic. Nursing note and vitals reviewed. Uterine Fundus: 2 cm below the umbilicus Lochia: appropriate Perineum: not inspected Significant Labs: Lab Results Component Value Date ABORH B Pos 08/01/2017 WBC 22.8 (H) 08/01/2017 HCT 26.2 (L) 08/01/2017 HGB 9.5 (L) 08/01/2017 RUBLIGG Positive (External Lab) 01/17/2017 Immunization status: Varicella non-immune Assessment & Plan 16 y.o. G1, now P0101 PPD#2 s/p after IOL for severely IUGR infant (wght 1670 gms) with course complicated by retained POCs necessitating methergine, misoprostol, and D&C, EBL 1300. ?? Patient is doing well without problems. ??? Infant nutrition: Breast and bottle feeding well. ??? Contraception: Mirena IUD at 6-weeks. ??? care: Will schedule for 2-week depression screen and a 6 week visit in clinic upon discharge. Assessment Management of Additional Medical Issues ?? Psychiatric co-morbidities/Substance abuse: ELIZABETH complete. ?? Current Smoker: using a nicotine patch ?? Hypothyroidism: continue home synthroid dose of 50mcg ?? Varicella NI status: Will require vaccine prior to discharge and repeat at follow up appointment. ?? Patient counseled on importance, was very agreeable to receiving vaccine. This patient was seen and discussed on rounds. Ed Nichole MD 08/03/2017 * Arianne Blandon RN - 08/02/2017 4:35 PM EDT Patient extensively counseled on smoking cessation and dangers of second hand smoke to baby and primary exposure to patient. She reports of the nicotine patch, it's just not the same. Educated on [facility] being smoke-free campus, patient expresses understanding. MDs aware, current 14mg patch removed.Patient will go outside with friend. Just pumped for baby, aware of hygiene to perform before seeing baby in the ICN again. Explored patient's readiness to quit, does not seem to conceive of life without cigarettes at this time. Per patient, mom and friend smoke so she had constant access to cigarettes. * Donta Pierre RN - 08/02/2017 2:43 PM EDT Patient Name: Stephanie Nix Patient Age: 16 y.o. Birthdate: 2000 Admit date: 07/30/2017 Attending Physician: Catrachita Agustin MD Stephanie Nix 2000 [address] [facility] [address] (M) [employer] Central intake- #[phone] fax [phone] [place], [place] Ivhulc-[phone] RX: Hospital Grade Electric Breast Pump- Lactina Breast Pump Length of Need: 3 Months Purpose of Appliance: To Initiate and Maintain Medical Necessity: /Lactating Mother- Z39.1 Breast Engorgement relative to born at 36 1/7 gestation - P92.9 Feeding problem of , unspecified Small for Gestational age infant (SGA)- P05.08 Premature Infant in ICN from mother- P07.30 Prematurity UBALDO 779.5 Patient will pick up man the pump in the [facility] store. Donta Pierre RN Intensive Care Nursery Credentialing SpecialistSpool Sorter of Care Management Phone:# [phone] Beeper: #[id number] Fax: # [phone] * Lai Ibrahim MD - 08/02/2017 4:48 AM EDT Vaginal Delivery Note Information for the patient's : Boyd Baby Boy [[id number]] Delivery Date and Time:08/01/2017 6:05 AM Delivery Type: Vaginal, Spontaneous Delivery ID: Stephanie Nix is an 16 year old G1, now P0101 PPD#1 s/p after IOL for severely IUGR (wght 1670 gms) with course complicated by retained POCs necessitating methergine, misoprostol, and D&C, EBL 1300. additionally complicated by... ?? Psychiatric co-morbidities/Substance abuse ?? ADD: was taking Ritalin and Foclain in first early trimester, stopped once she found out she was. ?? Depression: Not on medications currently. ?? Marijuana use in : Consented to ELIZABETH. ?? Cigarette smoker: Currently smoking 2-5 cigarettes/day. Nicotine patch ordered ?? Asthma: occasional inhaler use in ?? Hypothyroidism: diagnosed in , however did not take synthroid consistently. TSH on 07/14was 3.31, increased synthroid to 50mg at that time. ?? Varicella non-immune Subjective: Pain is well controlled on PO pain meds. Reports that her pad had a small stain of blood on her pad when she got up to change it overnight. Tolerating good PO without nausea and vomiting.Urinating and ambulating without issue. Review of Systems Lochia: moderate Last Set of Vitals: Vitals: 08/01/17 2134 BP: 132/65 Pulse: 80 Resp: 19 Temp: Weight - Scale: 68.9 kg (152 lb) Physical Exam Uterine Fundus: 2 cm below the umbilicus Lochia: appropriate Perineum: not inspected Significant Labs: Lab Results Component Value Date ABORH B Pos 08/01/2017 WBC 22.8 (H) 08/01/2017 HCT 26.2 (L) 08/01/2017 HGB 9.5 (L) 08/01/2017 RUBLIGG Positive (External Lab) 01/17/2017 Immunization status: Varicella non-immune Assessment & Plan 16 y.o. G1, now P0101 PPD#1 s/p after IOL for severely IUGR (wght 1670 gms) with course complicated by retained POCs necessitating methergine, misoprostol, and D&C, EBL 1300. ?? Patient is doing well without problems. ??? Infant nutrition: Breast and bottle feeding well. ??? Contraception: Thinking about a copper IUD at 6 weeks .. Will continue to discuss while patient is admitted. ??? care: Will schedule for a 6 week visit in clinic upon discharge. Assessment Management of Additional Medical Issues ?? Psychiatric co-morbidities/Substance abuse: ELIZABETH complete. ?? Current Smoker: using a nicotine patch ?? Hypothyroidism: continue home synthroid dose of 50mcg ?? Varicella NI status: Will require vaccine prior to discharge This patient was seen and discussed on rounds. Lai Ibrahim MD 08/02/2017 Associated attestation - Sarah Richmond MD - 08/02/2017 10:52 AM EDT I have seen and examined the patient, providing clemente components as outlined below. I have reviewed the resident???s above note; my evaluation of the patient is below: PPD# 1 NVD IOL for severe IUGR at 36 weeks w/o interval growth, delivery c/b PPH. Doing well. Pain controlled. BP 132/65 Pulse 80 Temp 36.9 ??C (98.4 ??F) (Oral) Resp 19 Ht 157.5 cm (5' 2) Wt 68.9 kg(152 lb) SpO2 99% ? Unknown BMI 27.8 kg/m2 NAD Uterus NT, firm I/R PPD#1 NVD Routine care Continue inpatient care due to risk for recurrent bleeding. Baby in ICN Needs reliable contraceptive plan prior to d/c. SARAH RICHMOND MD * Noris Goodrich RN - 08/01/2017 9:33 AM EDT 0930: Dr. Whitley at bedside to assess fundus to right side and heavy bleeding. 0938: 0.2mg of IM methergine in right thigh per Dr. Whitley 0940: BSUS at bedside for assessment of uterus 0950: Dr. Agustin at bedside to assess, pt agrreable to go for D&C, 1000cc LR bolus 1100: pt back to room, fundus midline and firm u/1 * Noris Goodrich RN - 08/01/2017 9:14 AM EDT 0910, pt began pumping. Educated about starting pumping, increasing milk supply, and pump care. * iLsbet Hodgson - 08/01/2017 5:28 AM EDT Multidisciplinary Second Stage Labor Progress Note Patient ID: Stephanie Nix is a 16 y.o. at 36w0d gestation being induced for severe IUGR, EFW 1500gms. A multidisciplinary meeting was held to discuss discuss maternal/ status. This included the charge nurse (Catrachita Salmon), Labor nurse (Angela Bishop), Attending Cash Accountant (Dot Toney), and [facility] OB resident (Lisbet Hodgson). The patient was found to be fully dilated at 5:24 . She has not yet begun pushing. The vertex is in MOA position, currently at +2 station. There is No caput present. Maternal status: Tired but aware of contractions. status: The baseline FHR at the time of full dilation was . The baseline FHR is currently 115 with moderate to marked variability, positive accels, No decles. The heart rate tracing is category 1 and is overall reassuring. The maternal heart rate is 107, distinct from FHR on spO2 monitoring. Assessment/Plan: Will begin pushing at this time. Anticipate vaginal delivery. The assessment of and maternal status and plan of care was discussed with the patient and herfamily. Lisbet Hodgson, DO PGY-1 Associated attestation - Dot Toney MD - 08/01/2017 6:50 AM EDT I was present during the second stage meeting. I agree with the description of the heart tracing and the plan for pushing. Anticipate DOT TONEY MD * Lisbet Hodgson - 08/01/2017 3:59 AM EDT Labor Progress Note Subjective: Tolerating labor well. Resting comfortable with epidural in place. Tracing reassuring following initiation of amnioinfusion. After check had a prolonged decel, FSE placed. Objective: Temp: 36.8 ??C (98.2 ??F) 24 hr Temp: [36.7 ??C (98.1 ??F)-36.8 ??C (98.2 ??F)] Heart Rate: 65 24 hr Heart Rate: [45-105] BP: 125/60 24 hr BP: (96-148)/(50-89) Cervix Exam: 6/100/ +1 soft, anterior. Examiner: Morgan Heart Rate Interpretation: HR Assessment Method: external (08/01/17 0300) HR Baseline: 130 BPM HR Variability: moderate HR accelerations: present HR decelerations: prolonged deceleration x 1 (4 min) Contraction frequency: 4-5 mins GBS Lab Results Component Value Date GBSSCREEN Pos 07/28/2017 Assessment & Plan This is Stephanie Nix is an 16 year old at 36w0d being induced for severe IUGR with EFW 1500g. additionally complicated by ADD, depression, marijuana use, current smoker, asthma, hypothyroidism, and varicella non-immune status. Labor Assessment: Active labor. Improvement in FHT with amnioinfusion. Prolonged decel x 1 after cervical exam, FSE placed. ?? Labor Plans: Expectant management at this time. Keep pitocin turned off at this time. Will recheck at 0600. If tracing reassuring and patient has not made adequate change on her own, will considerrestarting Pitocin. Have discussed the possibility of CS with patient. If continues to have NRFHT remote from labor, will consider CS. ?? GBS Management: Penicillin. Additional Issues ?? Asthma: avoid hemabate in the case of PPH. ?? Cigarette smoker: 14mg nicotine patch. ?? Hypothyroidism: 50mg synthroid; d/c PP. ?? Marijuana use: ELIZABETH on admission positive for cannabinoids. Lisbet Hodgson DO 08/01/2017 Associated attestation - Dot Toney MD - 08/01/2017 4:23 AM EDT heart tracing reviewed. Agree that heart tracing returned to category 1 after amnioinfusion. Patient had modest progress since last exam with effacement and descent of head, but deceleration with exam. Will observe for further progress without oxytocin given this modest change and given deceleration with exam. If no further change at next exam then would pursue oxytocin at that time. DOT TONEY MD * Lisbet Hodgson - 08/01/2017 1:32 AM EDT Labor Progress Note Subjective: Tolerating labor well. Resting comfortable with epidural in place. Recurrent variable decelerationswith >50% contractions. Continues to have accelerations and moderate variability. IUPC in place. Objective: Temp: 36.8 ??C (98.2 ??F) 24 hr Temp: [36.7 ??C (98.1 ??F)-36.8 ??C (98.2 ??F)] Heart Rate: 65 24 hr Heart Rate: [45-105] BP: 125/60 24 hr BP: (96-148)/(50-89) Cervix Exam: 5/80/-1 soft, mid position. Examiner: Morgan Heart Rate Interpretation: HR Assessment Method: external (08/01/17 0100) HR Baseline: 130 BPM HR Variability: moderate HR accelerations: present HR decelerations: recurrent variable decelerations Contraction frequency: 4-5 mins GBS Lab Results Component Value Date GBSSCREEN Pos 07/28/2017 Assessment & Plan This is Stephanie Nix is an 16 year old at 36w0d being induced for severe IUGR with EFW 1500g. additionally complicated by ADD, depression, marijuana use, current smoker, asthma, hypothyroidism, and varicella non-immune status. Labor Assessment: Latent labor. Recurrent variable decelerations with >50% contractions with otherwise reassuring tracing s/p amniotomy with clear fluid and IUPC placement. ?? Labor Plans: Initiate amnioinfusion. Keep pitocin turned off at this time. If resolution of variables, consider restarting. Have discussed the possibility of CS with patient. If continues to have NRFHT remote from labor, will consider CS. Plan to recheck @ 0400 or sooner as indicated. ?? GBS Management: Penicillin. Additional Issues ?? Asthma: avoid hemabate in the case of PPH. ?? Cigarette smoker: 14mg nicotine patch. ?? Hypothyroidism: 50mg synthroid; d/c PP. ?? Marijuana use: ELIZABETH on admission positive for cannabinoids. Lisbet Hodgson DO 08/01/2017 * Morgan Lisbet Jennings - 08/01/2017 12:34 AM EDT Labor Progress Note Subjective: Tolerating labor well. Resting comfortable with epidural in place. Recurrent variable decelerationswith >50% contractions, IUPC placed. 15x30 acceleration on scalp stimulation during exam. Objective: Temp: 36.7 ??C (98.1 ??F) 24 hr Temp: [36.7 ??C (98.1 ??F)-36.8 ??C (98.2 ??F)] Heart Rate: 71 24 hr Heart Rate: [45-105] BP: 108/77 24 hr BP: (96-148)/(50-89) Cervix Exam: 5/80/-1 soft, mid position. Examiner: Morgan Heart Rate Interpretation: HR Assessment Method: external (08/01/17 0000) HR (Beats/Min): 130 HR Variability: moderate HR accelerations: present HR decelerations: recurrent early decelerations Contraction frequency: 4-5 mins. GBS Lab Results Component Value Date GBSSCREEN Pos 07/28/2017 Assessment & Plan This is Stephanie Nix is an 16 year old at 36w0d being induced for severe IUGR with EFW 1500g. additionally complicated by ADD, depression, marijuana use, current smoker, asthma, hypothyroidism, and varicella non-immune status. Labor Assessment: Latent labor. Recurrent variable decelerations with >50% contractions after amniotomy. IUPC placed. ?? Labor Plans: Continue expectant management. Keep pitocin turned off at this time. If recurrent variables continue, will consider amnioinfusion. Have discussed the possibility of CS with patient. If continues to have NRFHT remote from labor, will consider CS. ?? GBS Management: Penicillin. Additional Issues ?? Asthma: avoid hemabate in the case of PPH. ?? Cigarette smoker: 14mg nicotine patch. ?? Hypothyroidism: 50mg synthroid; d/c PP. ?? Marijuana use: ELIZABETH on admission positive for cannabinoids. Lisbet Hodgson DO 08/01/2017 Associated attestation - Dot Toney MD - 08/01/2017 1:17 AM EDT heart tracing and plan of care reviewed. Agree that patient demonstrating recurrent decelerations with contractions after AROM; some are consistent with variable decelerations and others with early decelerations. However moderate variability persists and accelerations are present. Therefore agree with further observation. DOT TONEY MD * Morgan Lisbet Dick - 08/01/2017 12:02 AM EDT Labor Progress Note Subjective: Tolerating labor well. Resting comfortable with epidural in place. FHT responsive to turning off pitocin and positional changes. Amniotomy performed. Objective: Temp: 36.7 ??C (98.1 ??F) 24 hr Temp: [36.7 ??C (98.1 ??F)-36.8 ??C (98.2 ??F)] Heart Rate: 71 24 hr Heart Rate: [45-105] BP: 108/77 24 hr BP: (96-148)/(50-89) Cervix Exam: 5/80/-1 soft, mid position. Examiner: Morgan Heart Rate Interpretation: HR Assessment Method: external (07/31/17 2330) HR (Beats/Min): 130 HR Variability: moderate HR accelerations: present HR decelerations: recurrent variable decelerations Contraction Frequency (Minutes): 2.5-4.5 GBS Lab Results Component Value Date GBSSCREEN Pos 07/28/2017 Assessment & Plan This is Stephanie Nix is an 16 year old at 36w0d being induced for severe IUGR with EFW 1500g. additionally complicated by ADD, depression, marijuana use, current smoker, asthma, hypothyroidism, and varicella non-immune status. Labor Assessment: Latent labor. Pitocin turned off in response to recurrent decelerations with improvement. Amniotomy performed revealing clear fluid. ?? Labor Plans: Continue expectant management. Keep pitocin turned off at this time. If recurrent variables continue, will consider amnioinfusion. ?? GBS Management: Penicillin. Additional Issues ?? Asthma: avoid hemabate in the case of PPH. ?? Cigarette smoker: 14mg nicotine patch. ?? Hypothyroidism: 50mg synthroid; d/c PP. ?? Marijuana use: ELIZABETH on admission positive for cannabinoids. Lisbet Hodgson DO 08/01/2017 Associated attestation - Dot Toney MD - 08/01/2017 1:06 AM EDT heart tracing and plan of care reviewed. Agree that tracing returned to category 1 after discontinuation of oxytocin. Agree with plan for amniotomy to pursue labor induction. DOT TONEY MD * Lisbet Hodgson - 07/31/2017 10:40 PM EDT Labor Progress Note Subjective: To room to evaluate patient for recurrent late decelerations. S/p fentanyl 100mcg x 1 and epidural placement. Patient slightly hypotensive to 90s/60s, responsive to 500cc fluid bolus x 2. Pitocin turned off & position changed, responsive. Objective: Temp: 36.8 ??C (98.2 ??F) 24 hr Temp: [36.7 ??C (98.1 ??F)-36.8 ??C (98.2 ??F)] Heart Rate: 61 24 hr Heart Rate: [45-75] BP: 130/71 24 hr BP: (113-148)/(70-89) Cervix Exam: Dilation: 4 (07/31/172231) Effacement: 70 Station: -1 Cervical Position: Mid-Position Consistency: Soft Franklin Score: 8 OB Examiner: Morgan Heart Rate Interpretation: HR Assessment Method: external (07/31/172029) HR (Beats/Min): 135 HR Variability: moderate (amplitude range 6 to 25 bpm) HR Accelerations: greater than/equal to 15 bpm HR Decelerations: recurrent late decelerations Contraction Frequency (Minutes): 2-3.5 GBS Lab Results Component Value Date GBSSCREEN Pos 07/28/2017 Assessment & Plan This is Stephanie Nix who is at 35w6d. Labor Assessment: Latent labor with Cat II heart tracing now s/p 24h oral Misoprostol, cervical Ibrahim, and pitocin. ?? Labor Plans: Intervention: Pitocin turned off, allow for recovery and then will consider AROM. Consider CS if continues to have NRFHT remote from delivery. ?? GBS Management:: Marie Hodgson DO, PGY-1 07/31/2017 Associated attestation - Dot Toney MD - 07/31/2017 11:14 PM EDT heart tracing and labor progress reviewed with resident. Agree with description of recurrent late decelerations. Agree with plan for discontinuation of oxytocin, position change, hydration. These measures did result in resolution of lates and return to category 1 FHT with moderate variability and accelerations. Discussed with patient and her family having a period of recovery and observation with no further induction agent. We discussed that after this period of recovery, we may consider further augmentation with AROM. However, I also noted that if AROM results in recurrent decelerations then she may need section. Patient previously consented for . We discussed cs again and questions answered. DOT TONEY MD * Leonor Michel MD - 07/31/2017 7:26 PM EDT Labor Progress Note Subjective: Ibrahim balloon fell out. Increasing intensity of contractions. Objective: Temp: 36.8 ??C (98.2 ??F) 24 hr Temp: [36.7 ??C (98.1 ??F)-37 ??C (98.6 ??F)] Heart Rate: 65 24 hr Heart Rate: [45-75] BP: 148/85 24 hr BP: (113-148)/(70-89) Cervix Exam: Dilation: 4 (07/31/17 1923) Effacement: 70 Station: -2 Cervical Position: Mid-Position Consistency: Soft Franklin Score: 8 OB Examiner: Morgan Heart Rate Interpretation: HR Assessment Method: external (07/31/17 1830) HR (Beats/Min): 130 HR Variability: moderate (amplitude range 6 to 25 bpm) HR Accelerations: greater than/equal to 15 bpm HR Decelerations: absent Contraction Frequency (Minutes): 2-3 GBS Lab Results Component Value Date GBSSCREEN Pos 07/28/2017 Assessment & Plan This is Stephanie Nix who is at 35w6d gestation. Labor Assessment: Transitioning to active labor, now s/p 24h oral Misoprostol, ibrahim balloon. ?? Labor Plans: start pitocin augmentation. Recheck in four hours ?? GBS Management:: Penicillin ?? Pain Management: IV fentanyl 100mcg, desires epidural LEONOR MICHEL MD, PGY-3 07/31/2017 Associated attestation - Dot Toney MD - 07/31/2017 7:43 PM EDT Patient seen with resident team. Chart reviewed. heart tracing reviewed. Agree that tracing is category 1. Agree with plan for starting oxytocin for induction. Agree with continuing PCN. Patient currently requesting IV pain medication. Does not want epidural right now but likely will use later. Therefore will give fentanyl. DOT TONEY MD * Horn Linette M - 07/31/2017 3:20 PM EDT Labor Progress Note Subjective: The patient is tolerating labor well. The patient is using nothing.for pain management. Objective: Temp: 36.8 ??C (98.2 ??F) 24 hr Temp: [36.7 ??C (98.1 ??F)-37 ??C (98.6 ??F)] Heart Rate: 64 24 hr Heart Rate: [45-124] BP: 116/75 24 hr BP: (110-145)/(56-89) Cervix Exam: Dilation: 2 (07/31/17 1517) Effacement: 40 Station: -3 Cervical Position: Mid-Position Consistency: Soft Franklin Score: 5 OB Examiner: Kory MENDOZA Heart Rate Interpretation: HR Assessment Method: external (07/31/17 1500) HR (Beats/Min): 130 HR Variability: moderate (amplitude range 6 to 25 bpm) HR Accelerations: greater than/equal to 15 bpm HR Decelerations: absent Contraction Frequency (Minutes): irregular GBS Lab Results Component Value Date GBSSCREEN Pos 07/28/2017 Assessment & Plan This is Stephanie Nix who is at 35w6d. Labor Assessment: Early latent labor., now s/p 24h oral Misoprostol with slight cervical ripening ?? Labor Plans: Intervention: plan placement of Ibrahim and initiation of Pitocin for augmentation ?? GBS Management:: Penicillin ?? Linette Horn MD, PGY-1 07/31/2017 * Maritza Mcgowan - 07/31/2017 4:24 AM EDT Labor Progress Note ID/CC: Stephanie Nix is a 16 y.o. at 35w6d gestation who is being induced for IUGR. additionally complicated by ADD, depression, marijuana use, current smoker, asthma, hypothyroidism, and varicella non-immune status. Subjective: Patient is tolerating induction well. She is sleeping in bed and states that she feels her contractions, but they are not very intense. She is using nothing for pain management. Objective: Temp: 37 ??C (98.6 ??F) 24 hr Temp: [36.7 ??C (98.1 ??F)-37 ??C (98.6 ??F)] Heart Rate: 56 24 hr Heart Rate: [56-124] BP: 137/79 24 hr BP: (110-139)/(56-82) Cervix Exam: Dilation: 1 (SVE performed by Dr Mcgowan) (07/31/17 9446) Effacement: 75 Station: High -4 Cervical Position: Posterior Consistency: Medium Franklin Score: 4 OB Examiner: Roslyn MENDOZA Heart Rate Interpretation: Baseline 120, moderate variability, + accels, no decels [place]: occasional contractions GBS Lab Results Component Value Date GBSSCREEN Pos 07/28/2017 Assessment & Plan Stephanie Nix is a 16 y.o. at 35w6d gestation who is being induced for IUGR. additionally complicated by ADD, depression, marijuana use, current smoker, asthma, hypothyroidism, and varicella non-immune status. ?? Labor Plans: IOL with PO misoprostol x7. Cervical exam at this time demonstrated a franklin's of 4, which is a change from admission; 8th PO miso administered at 04:45 hrs. Continue present management. Will plan to recheck once patient becomes more uncomfortable. ?? GBS Management: Penicillin complete. Additional Issues ?? Asthma: avoid hemabate in the case of PPH. ?? Cigarette smoker: 14mg nicotine patch. ?? Hypothyroidism: 50mg synthroid; d/c PP. ?? Marijuana use: ELIZABETH on admission positive for cannabinoids. Maritza Mcgowan MD PGY-1 07/31/2017 Associated attestation - Catrachita Agustin MD - 07/31/2017 6:56 AM EDT Attending note I have personally reviewed the patient's progress in labor and agree with Dr. Mcgowan's assessment and plan as documented. Catrachita Agustin MD * Maritza Mcgowan - 07/31/2017 2:21 AM EDT Labor Progress Note ID/CC: Stephanie Nix is a 16 y.o. at 35w6d gestation who is being induced for IUGR. additionally complicated by ADD, depression, marijuana use, current smoker, asthma, hypothyroidism, and varicella non-immune status. Subjective: Per RN, patient is tolerating induction well and has been sleeping throughout the night. Denies feeling contractions. Objective: Temp: 37 ??C (98.6 ??F) 24 hr Temp: [36.7 ??C (98.1 ??F)-37 ??C (98.6 ??F)] Heart Rate: 56 24 hr Heart Rate: [56-124] BP: 137/79 24 hr BP: (110-139)/(56-82) Cervix Exam: Dilation: 0 (07/30/17 1355) Effacement: 25 Station: High -4 Cervical Position: Posterior Consistency: Firm Franklin Score: 0 OB Examiner: Roslyn MENDOZA Heart Rate Interpretation: Baseline 130, moderate variability, + accels, no decels [place]: occasional contractions GBS Lab Results Component Value Date GBSSCREEN Pos 07/28/2017 Assessment & Plan Stephanie Nix is a 16 y.o. at 35w6d gestation who is being induced for IUGR. additionally complicated by ADD, depression, marijuana use, current smoker, asthma, hypothyroidism, and varicella non-immune status. ?? Labor Plans: Continue IOL with PO misoprostol, now s/p 6 doses. Will plan to re-check at 04:30 hrs when she is due for her 8th dose. ?? GBS Management: Penicillin complete. Additional Issues ?? Asthma: avoid hemabate in the case of PPH. ?? Cigarette smoker: 14mg nicotine patch. ?? Hypothyroidism: 50mg synthroid; d/c PP. ?? Marijuana use: ELIZABETH on admission positive for cannabinoids. Maritza Mcgowan MD PGY-1 07/31/2017 Associated attestation - Catrachita Agustin MD - 07/31/2017 3:50 AM EDT Attending note I have personally reviewed the patient's progress in labor and agree with Dr. Mcgowan's assessment and plan as documented. Catrachita Agustin MD documented in this encounter H&P Notes * Maritza Mcgowan - 07/30/2017 1:17 PM EDT Obstetrical Admission Note Stephanie Nix is a 16 y.o. at 35w5d weeks gestation who is here for IOL for IUGR with no interval growth in two weeks. HPI: Stephanie is nervous about her induction, but is overall feeling well. Denies vaginal bleeding, leakage of fluid, or contractions. Reports good movements. Her has been complicated by: -- IUGR: ELKIN to M at 32w3d for IUGR. On 07/28 ultrasound, there was no interval growth over two weeks with profound growth restriction. Normal dopplers with reactive NST. Steroids completed as an outpatient prior to admission. -- ADD: was taking Ritalin and Foclain in first early trimester, but stopped once she found out shewas . -- Depression: Not on medications currently. -- Marijuana use in : Consented to ELIZABETH. -- Cigarette smoker: Currently smoking 2-5 cigarettes/day. Would like nicotine patch. -- Asthma: has used inhaler occasionally in . -- Hypothyroidism: dx in , however did not take synthroid consistently. TSH on 07/14 was 3.31, increased synthroid to 50mg at that time. -- Varicella non-immune Is expecting a male , to be named Bart. Would like an epidural for pain management. Plans on reastfeeding and using a Mirena IUD for control. Presents with boyfriend, Ann, and her parents. Review of Systems- Negative to complete review except as noted in the HPI. Obstetric Review of Systems Total Weight Gain this 7.711 kg (17 lb) Movement: normal Contractions: none Leaking: None Bleeding; none now Preeclampsia signs and symptoms: None Active Hospital Problems Diagnosis ??? IUGR (intrauterine growth restriction) affecting care of mother ??? Hypothyroidism ??? History of tobacco use ??? Supervision of normal first teen in third trimester ??? Positive GBS test ??? Marijuana use ??? Attention deficit disorder (ADD) without hyperactivity ??? Depression Resolved Hospital Problems Diagnosis Date Resolved No resolved problems to display. There are no active non-hospital problems to display for this patient. Past Medical History: Diagnosis Date ??? Asthma ??? Ganglion of wrist 08/27/2013 ??? History of tobacco use 07/30/2017 ??? Hypothyroidism levothyroxine 50 QD ??? Learning difficulty 09/19/2012 ??? Smoker No past surgical history on file. OB History Para Term AB Living 1 SAB TAB Ectopic Multiple Live Births # Outc Date GA Lbr Sourav/2nd Wgt Sex Del Anes PTL Lv 1 Current Facility-Administered Medications Prior to Admission Medication Dose Route Frequency Provider Last Rate Last Dose ??? betamethasone acetate-betamethasone sodium phosphate (CELESTONE) injection 12 mg 12 mg Intramuscular Q24H Catrachita Agustin MD 12 mg at 07/28/17 1552 Prescriptions Prior to Admission Medication Sig Dispense Refill Last Dose ??? levothyroxine (SYNTHROID) 50 mcg Tablet Take 1 tablet by mouth daily. 30 tablet 3 Taking at Unknown time ??? vitamin with [id number] Tablet Take by mouth. Taking at Unknown time ??? nicotine (NICODERM CQ) 14 mg/24 [address] 1 patch onto the skin daily. 28 patch 3 Taking at Unknown time No Known Allergies Family History Problem Relation Age of Onset ??? Hypertension Mother ??? Diabetes Father ??? Diabetes Paternal Grandmother Social History Occupational History ??? Not on file. Social History Main Topics ??? Smoking status: Current Every Day Smoker Packs/day: 0.25 Types: Cigarettes ??? Smokeless tobacco: Never Used Comment: doesn't smoke with patch on, 3 a day at most ??? Alcohol use No ??? Drug use: Yes Special: Marijuana Comment: quit ??? Sexual activity: Yes Immunization History There is no immunization history on file for this patient. Last Set of Vitals: BP 115/71 Pulse 81 Temp 36.7 ??C (98.1 ??F) (Oral) Resp 18 Ht 157.5 cm (5' 2) Wt 68.9 kg(152 lb) BMI 27.8 kg/m2 Physical Exam: Gen: NAD, resting comfortably in bed Cardio: nl rhythm, S1, S2, no M/C/R/G Pulm: CTA BL, no W/C/R Abd: soft, NT, ND, gravid Ext: warm, well-perfused, no AMEE or calf tenderness Uterine Size: S<D Clinical EFW: 4 lbs Cervix Exam: Dilation: 0 (07/30/17 1355) Effacement: 25 Station: High -4 Cervical Position: Posterior Consistency: Firm Franklin Score: 0 OB Examiner: Roslyn MENDOZA Pelvis: average Presentations: Cephalic, confirmed by BSUS Heart Rate Interpretation: Baseline: 115, Variability: minimal, Accels: yes, Decels: variable, [place]: occasional, irregular contractions Record Review Labs Lab Results Component Value Date ABORH B Pos 07/14/2017 HCT 33.8 (L) 07/30/2017 HGB 12.1 07/30/2017 MCV 86.7 07/30/2017 HEPBSAG Negative (External Lab) 01/17/2017 RUBLIGG Positive (External Lab) 01/17/2017 HIV12 Negative (External Lab) 01/17/2017 GCAMP Negative 02/17/2017 CHLMGENE Negative 02/17/2017 Lab Results Component Value Date LABGLUC2 131 (External Lab) 06/17/2017 LABGLUC3 101 (External Lab) 06/17/2017 Lab Results Component Value Date GBSSCREEN Pos 07/28/2017 Most Recent Ultrasound Date: 07/28/17 GA at US: 35w3d EFW: 1537g, 3lb 6oz, <5% Growth: current growth parameters are consistent with prior dating indicating restricted growth. Umbilical artery dopplers were preformed due to AC < 10%. Normal UA dopplers demonstrated. Amniotic fluid volume normal Placenta posterior Presentation cephalic Assessment & Plan Stephanie Nix is a 16 y.o. at 35w5d weeks gestation, here for IOL for IUGR with no interval growth in two weeks. 1. Induction of labor for IUGR -Labs: CBC -Labor management: A franklin's score is 0, will begin induction with PO misoprostol (25mcg q2hrs). Will plan to re-check when patient becomes more uncomfortable or as clinically indicated. -GBS status: posiitve. Will start Penicillin when in active labor. - status: NST reactive on admission. -Steroid status: Steroid complete as of 07/30 at 4:00pm -Consultations: neonatology and anesthesiology -Consents obtained: consented for section and opioids. We discussed risks and benefits of section with risks including but not limited to bleeding, infection, damage to surrounding tissues (bladder, bowel, ureters, fallopian tubes, ovaries, uterus, blood vessels, nerves), damage to fetus, blood clots to legs or lungs, wound separation or infection, increased healing time when compared to vaginal delivery, rare hysterectomy and future obstetric complications. She and her familystated understanding of these risks and all her questions were answered. She did sign consent. 2. Current smoker: ordered for 14mg nicotine patch. 3. Marijuana use in : follow-up on ELIZABETH results. 4. Hypothyroidism: continue levothyroxine 50mg daily. 5. -Mirena IUD for control -Varicella vaccine as patient is non-immune This patient was seen and discussed with Dr. Rodriguez, Attending [employer]. Maritza Mcgowan MD PGY-1 07/30/2017 Associated attestation - Catrachita Agustin MD - 07/30/2017 6:58 PM EDT Attending note I saw and evaluated the patient with Dr Mcgowan. I have reviewed the resident's history during the visit and I agree with the details as written. My physical examination confirms and/or revises the resident's findings. The assessment and plan were formulated in discussion with me at the time of the visit and I agree with them as documented. Catrachita Agustin MD documented in this encounter Miscellaneous Notes * Note - Lizeth Westfall RN - 08/03/2017 5:07 PM EDT Called to BP 20 to troubleshoot breastpump that has limited suction on one side. Mother washing pump kit and reassembled independently. Placed on breastpump and suction worked well. Mother demonstrated good breast massage techniques during pumping session and obtained ~ 10 mls combined. RECOMMENDATIONS: Pump at least 8-10 times per 24 hours and record in pumping log provided Breast massage and hand expression before and during pumping Brief heat prior to pumping and ice packs after pumping X 48 hours with physiologic engorgement Organ oil to nipples prior to pumping Frequent and prolonged maternal- skin to skin contact Close support and follow up Lizeth Westfall MPH,RN, IBCLC [facility] Services * Med Student Progress Note - Alejandrina Cohn I - 08/03/2017 6:29 AM EDT Vaginal Delivery Note Patient ID: Stephanie Nix is an 16 y.o. year old day #2 after at 36+0 following IOL for severe IUGR & complicated by post hemorrhage. Complicated By: 1. IUGR 2. Tobacco & marijuana use 3. Hypothyroidism 4. ADD & Depression 5. Varicella non-immune status S: She is doing well . Pain is well controlled on Tylenol & ibuprofen PRN. Breast & formula feeding for infant nutrition without difficulty. Ambulating, voiding spontaneously, and tolerating a regular diet without n/v. +flatus, no BM although she states she normally does not pass bowels frequently. She reports good mood. She had a mild CAMPBELL last evening that self resolved & she is otherwise without complaint. Denies: SOB, chest pain, abdominal pain ROS: lochia less than that of a period, few clots O: Last value Range last 24 hrs Temperature Temp: 36.8 ??C (98.2 ??F) Temp: [36.8 ??C (98.2 ??F)-37.2 ??C (99 ??F)] Heart Rate Heart Rate: 69 Heart Rate: [61-93] Blood Pressure BP: 125/73 BP: (115-129)/(62-73) Respiratory Rate Resp: 17 Resp: [17-18] SpO2 SpO2: 100 % SpO2: [99 %-100 %] No intake or output data in the 24 hours ending 08/03/17 0634 Physical Exam: Gen: lying in bed in no acute distress. Cardiac: RRR, distinct S1 & S2, no rub/gallop/murmur. Pulmonary: CTAB, no rales, wheeze/rhonchi. Abdomen: Soft, symmetric, nontender, +BS Uterus: firm, 2cm below umbilicus, nontender : not visualized Extremities: nontender, no edema Labs: Recent Labs 08/01/17 1710 08/01/17 1010 07/30/17 1325 WBC 22.8* 28.1* 21.1* HGB 9.5* 11.1* 12.1 HCT 26.2* 32.2* 33.8* PLATELET 248 302 310 No results for input(s): NA, K, CL, CO2, BUN, CREATININE, MAGNESIUM, PHOS in the last 168 hours. Assessment & Plan: Stephanie Nix is a 16 y.o. year old day #1 after at 36w+0d gestation complicated by PPH. She is doing well without complaint. Discussed contraceptive options in depth; she would like to get a Mirena & OCP during the interim. She is due tohave blood drawn prior to discharge for a blood exposure incident, otherwise no issues. I anticipate discharge today, PPD#2. Other Medical Issues/Concerns: ?? Anemia: no signs of anemia, no treatment ?? Blood type: B Pos, Rhogam not indicated ?? Physician blood exposure: blood sample for testing ?? nutrition: BF and formula feeding for nutrition without concerns ?? Contraception: Discussed contraceptive options in depth; mirena IUD insertion at f/u visit, OCP during the interim ?? Varicella non-immune: IgG vaccination, 1st dose at 6wk follow up visit ?? Hypothyroidism: synthroid 50mcg QAM ?? Smoking cessation: nicotine patch ?? Post Depression: 2 week follow up phone call ?? Follow-up: 6 week post visit This patient was seen and discussed on rounds. Alejandrina Cohn, MS4 08/03/2017 * Plan of Care - Angela Bishop RN - 08/03/2017 4:10 AM EDT Problem: Patient Care Overview Goal: Plan of Care Review Outcome: Ongoing (Interventions Implemented as Appropriate) 08/03/17 0405 Plan of Care Review Progress progress towards functional goals is fair Coping/Psychosocial Plan Of Care Reviewed With patient OUTCOME EVALUATION NOTE: OUTCOME SUMMARY: Pt is on her 2nd day PP, VS stable, pain controlled with use of Acetaminophen & Ibuprofen. Pt independent in doing her own care & is breast pumping on her own. She ambulates independently & visits her baby in the ICN. See care plan goal summaries & comprehensive report for pt status. PLAN MOVING FORWARD: Continue care as directed in [facility] care plans. Prepare pt for discharge later today. INDIVIDUALIZED FALL PREVENTION: Assistance: None, pt independent Supervision: Remind pt to call for assistance when needed, call light within reach Surveillance: Purposeful rounding [facility] OUTCOME EVALUATION: Goal: Individualization & Mutuality Outcome: Ongoing (Interventions Implemented as Appropriate) 07/30/17 1240 08/01/17 0742 Individualization Patient Specific Preferences -- pain control, visit baby in ICN Patient Specific Goals -- stable PP recovery, pain control Patient Specific Interventions -- PP care, VS per protocol, pain meds as ordered Mutuality/Individual Preferences What Anxieties, Fears or Concerns Do You Have About Your Health or Care? fear of needles -- What Questions Do You Have About Your Health or Care? none -- What Information Would Help Us Give You More Personalized Care? nothing -- Goal: Fall Prevention-Safe Patient Handling Outcome: Ongoing (Interventions Implemented as Appropriate) 08/03/17404 Musculoskeletal Interventions Muscle Strengthening activity/mobility promoted Laguerre Fall Risk History of Falling 0 Secondary Diagnosis 0 Ambulatory Aids 0 Intravenous Therapy/Heparin/Saline Lock 20 Gait/Transferring 0 Mental Status 0 Score 20 Restraint Interventions Safety Promotion/Fall Prevention fall prevention program maintained;nonskid shoes/slippers when outof bed OTHER Laguerre Fall Risk Low Goal: Infection Control Outcome: Ongoing (Interventions Implemented as Appropriate) 08/02/17215008/03/17404 Safety Interventions Isolation Precautions -- standard precautions maintained Infection Prevention -- environmental surveillance performed;rest/sleep promoted;single patient room provided Coping Strategies Supportive Measures active listening utilized;decision-making supported;goal setting facilitated;positive reinforcement provided;verbalization of feelings encouraged -- Goal: Discharge Needs Assessment Outcome: Ongoing (Interventions Implemented as Appropriate) 08/01/17 0742 08/02/17 0400 08/03/17404 Discharge Needs Assessment Concerns To Be Addressed -- -- substance/tobacco abuse/use concerns Concerns Comments -- -- pt a smoker & removed Nicotine patch yesterday Readmission Within The Last 30 Days -- -- no previous admission in last 30 days Equipment Needed After Discharge -- other (see comments) (breast pump) -- Current Discharge Risk other (see comments) (pt a smoker) -- -- Discharge Disposition -- -- still a patient Current Health Anticipated Changes Related to Illness -- -- none Activity/Self Care Review of Systems Equipment Currently Used at Home -- -- none Living Environment Transportation Available -- family or friend will provide -- Goal: Interdisciplinary Rounds/Family Conf Outcome: Ongoing (Interventions Implemented as Appropriate) 08/03/17404 Interdisciplinary Rounds/Family Conf Participants nursing;patient Problem: (Vaginal Delivery) (Adult) Goal: Signs and Symptoms of Listed Potential Problems Will be Absent, Minimized or Managed () Signs and symptoms of listed potential problems will be absent, minimized or managed by discharge/transition of care (reference (Vaginal Delivery) (Adult) [facility]). Outcome: Ongoing (Interventions Implemented as Appropriate) 08/03/17404 (Vaginal Delivery) Problems Assessed ( Vaginal Delivery) all Problems Present ( Vaginal Delivery) pain * Initial Assessments - Jazzmine Sanders MSW - 08/02/2017 1:56 PM EDT Office of Care Management Initial Assessment VALERY COTE reviewed record and discussed patient with Care Team. Source of Information: Pt, Stephanie Nix Introduced self/reviewed role; services accepted. Reason for Hospitalization: Reason for Admission as Stated by Patient: to have a baby Past Medical History: Diagnosis Date ??? Asthma ??? Ganglion of wrist 08/27/2013 ??? History of tobacco use 07/30/2017 ??? Hypothyroidism levothyroxine 50 QD ??? Learning difficulty 09/19/2012 ??? Smoker Hospitalizations Within the Past 30 Days: None Anticipated Length Of Stay (If known): 2-3 days Current Decision-Making Capacity: Intact Advance Care Planning: N/A Current Coping/Education/Information Needs: Stephanie reports that she is in good spirits with the of her baby and his good condition despite his premature arrival and small size. Stephanie is experiencing some feelings of sadness and guilt about leaving the baby for an overnight at home once she is discharged from the , explaining that she and BEN only recently moved into their current apartment and hadn't had a chance to fully unpack prior to her IOL. Validated Stephanie's feelings and provided support and reassurance that baby will be well cared for in her absence and that the N staff understands that parents need to go home at times. Stephanie has minimal care experience and acknowledges that she has felt nervous while handling baby Bart due to his small size. She is hoping to learn as much as possible while Bart is in the ICN so that she feels fully comfortable with his care by the time he is ready to come home. Current Functional Ability: Ambulating, voiding, tolerating PO, breast pumping. Functional Status Prior to Admission: Independent; Home Environment: Fredy Juarez May live in their own apartment in [facility] (Stephanie is uncertain exact address) that they just moved into last week. Stephanie's mother lives next door. They are still in the process of unpacking, as they just moved into their apartment a couple of days before Stephanie unexpectedly was recommended to come in for IOL. Social & Family Supports/Community Resources: Stephanie's mother lives next door, and she has other friends and family nearby. Ann's mother lives in [place] and his father lives in [place], [place]. The rest of his family lives in [place], [place] which is the town where Ann works. 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 She will have 6+ weeks off for unpaid maternity leavae. Ann works for [employer] in [place] as a foster care worker. He had Tuesday through Tuesday off from work paid, but has returned to work this week. Stephanie reports having WIC, [employer] [place], and Medicaid. Both keyanna and Ann have vehicles. Stephanie reports th at they have all necessary supplies for the baby including car seat, crib and bassinet. Behavioral Health History: Stephanie shares that she has a history of depression and PTSD. Her symptoms have primarily included anhedonia, tearfulness, and nightmares/flashbacks. She was in therapy until the age of 15 when she felt she no longer needed counseling, and she reports that she has not found her mental health symptoms to interfere with her life since ending therapy. We discussed her increased risk of PPD; Reviewed screening tool contained w/in PPD brochure and discussed available resources. Substance Use/Abuse: Stephanie used marijuana during . This was not discussed today due the presence of Stephanie's friend in the room. Stephanie had a ELIZABETH on admission to the that was presumptivepositive for THC; Confirmatory testing is pending. 's umbilical cord test is also pending. A DCF report will likely be indicated and will discuss this privately with Stephanie in the future. Other Pertinent/Service Specific Information: None Health/Prescription Coverage: Primary Insurance: MEDICAID [place] Secondary Insurance: N/A Prescription Coverage: Yes Preferred Pharmacy: [facility] Other: None Primary Care Provider: None None Patient/Caregiver Goals of Treatment: For a healthy baby Potential Needs for Transition of Care: Rehab/SNF: No Home Health: Deferred - wants to wait until baby is closer to ICN discharge to make a decision DME: [employer] pump thru [facility]: No Community Resources: Provided info re: [facility], [employer] [facility] program, resources Transportation: Private car Other: None Anticipated Barriers to Discharge/Special Considerations: None Plan: A member of the Care Management team will continue to monitor progress, follow for continuityof care and assist with transition of care planning. VALERY COTE Pager: [phone] * Med Student Progress Note - Alejandrina Cohn Karla - 08/02/2017 6:29 AM EDT Vaginal Delivery Note Patient ID: Stephanie Nix is an 16 y.o. year old day #1 after at 36+0 following IOL for severe IUGR & complicated by post hemorrhage Blood loss estimated at 350ccs but 1 hr later The MD team was called to the patient's bedside for pronounced vaginal bleeding ~1 hour following delivery,. Aproximately 300ccs of clot were evacuated in the room & she was noted to have retained placental membranes with continued bleeding. She wasgiven methergine & ANCEF & taken to the OR for a D&C. Total EBL including delivery & procedure was 1300mL Complicated By: 1. IUGR (EFW 1500g, actual weight 1670g) 2. Tobacco & marijuana use 3. Hypothyroidism 4. ADD & Depression 5. Varicella non-immune status S: She is doing well . Pain is well controlled on Tylenol & ibuprofen PRN. Breast & formula feeding for infant nutrition without difficulty. Ambulating, voiding spontaneously, and tolerating a regular diet without n/v. +flatus, no BM. She reports good mood & she is without complaint. Denies: CAMPBELL, SOB, chest pain, abdominal pain ROS: lochia less than that of a period, no clots O: Last value Range last 24 hrs Temperature Temp: 36.9 ??C (98.4 ??F) Temp: [36.9 ??C (98.4 ??F)-37.1 ??C (98.8 ??F)] Heart Rate Heart Rate: 80 Heart Rate: [65-91] Blood Pressure BP: 132/65 BP: (108-143)/(64-93) Respiratory Rate Resp: 19 Resp: [19] SpO2 SpO2: 99 % SpO2: [99 %-100 %] Intake/Output Summary (Last 24 hours) at 08/02/17 0814 Last data filed at 08/01/17 1700 Gross per 24 hour Intake 500 ml Output 3300 ml Net -2800 ml Physical Exam: Gen: lying in bed in no acute distress. Cardiac: RRR, distinct S1 & S2, no rub/gallop/murmur. Pulmonary: CTAB, no rales, wheeze/rhonchi. Abdomen: Soft, symmetric, nontender, +BS Uterus: firm, 2cm below umbilicus, nontender : not visualized Extremities: nontender, no edema Labs: Recent Labs 08/01/17 1710 08/01/17 1010 07/30/17 1325 WBC 22.8* 28.1* 21.1* HGB 9.5* 11.1* 12.1 HCT 26.2* 32.2* 33.8* PLATELET 248 302 310 No results for input(s): NA, K, CL, CO2, BUN, CREATININE, MAGNESIUM, PHOS in the last 168 hours. Assessment & Plan: Stephanie Nix is a 16 y.o. year old day #1 after at 36w+0d gestation complicated by PPH. She is doing well without complaint. Discussed contraceptive options in depth; she is undecided but favors getting a copper IUD. Otherwise no issues; anticipate discharge today, PPD#2 Other Medical Issues/Concerns: ?? Anemia: no signs of anemia, ?? Blood type: B Pos, Rhogam not indicated ?? nutrition: BF and formula feeding for infant nutrition without concerns ?? Contraception: Discussed contraceptive options in depth; she is still undecided but thinks she wants the copper IUD ?? Varicella non-immune: IgG vacination at 6wk follow up visit ?? Hypothyroidism: synthroid 50mcg QAM ?? Smoking cessation: nicotine patch ?? Post Depression: 2 week follow up phone call ?? Follow-up: 6 week post visit This patient was seen and discussed on rounds. Alejandrina Cohn, MS4 08/02/2017 * Plan of Care - Angela Bishop RN - 08/02/2017 4:04 AM EDT Problem: Patient Care Overview Goal: Plan of Care Review Outcome: Ongoing (Interventions Implemented as Appropriate) 08/01/17213108/02/17 0400 Plan of Care Review Progress -- progress towards functional goals is fair Coping/Psychosocial Plan Of Care Reviewed With patient -- OUTCOME EVALUATION NOTE: OUTCOME SUMMARY: Pt is on her 1st day PP, VS stable, pain controlled with use Ibuprofen. Pt independent in doing her own care & visits her baby in the ICN. She also breast pumps with some assist.See care plan goal summaries & comprehensive report for pt status. PLAN MOVING FORWARD: Continue care as directed in [facility] care plans. INDIVIDUALIZED FALL PREVENTION: Assistance: None, pt independent Supervision: Remind pt to call for assistance when needed, call light within reach Surveillance: Purposeful rounding [facility] OUTCOME EVALUATION: Goal: Individualization & Mutuality Outcome: Ongoing (Interventions Implemented as Appropriate) 07/30/17 1240 08/01/17 0742 Individualization Patient Specific Preferences -- pain control, visit baby in ICN Patient Specific Goals -- stable PP recovery, pain control Patient Specific Interventions -- PP care, VS per protocol, pain meds as ordered Mutuality/Individual Preferences What Anxieties, Fears or Concerns Do You Have About Your Health or Care? fear of needles -- What Questions Do You Have About Your Health or Care? none -- What Information Would Help Us Give You More Personalized Care? nothing -- Goal: Fall Prevention-Safe Patient Handling Outcome: Ongoing (Interventions Implemented as Appropriate) 08/01/17 0741 08/01/17213108/02/17 0400 Musculoskeletal Interventions Muscle Strengthening -- -- activity/mobility promoted Laguerre Fall Risk History of Falling 0 -- -- Secondary Diagnosis 0 -- -- Ambulatory Aids 0 -- -- Intravenous Therapy/Heparin/Saline Lock 0 -- -- Gait/Transferring 0 -- -- Mental Status 0 -- -- Score 0 -- -- Daily Care Interventions Self-Care Promotion -- independence encouraged;BADL personal objects within reach;BADL personal routines maintained -- Activity and Safety Assistive Device -- -- None Restraint Interventions Safety Promotion/Fall Prevention -- -- fall prevention program maintained;nonskid shoes/slippers when out of bed OTHER Laguerre Fall Risk Low -- -- Positioning Body Position -- independent -- Goal: Infection Control Outcome: Ongoing (Interventions Implemented as Appropriate) 08/01/1741 08/01/17213108/02/17 0400 Safety Interventions Isolation Precautions -- -- standard precautions maintained Infection Prevention environmental surveillance performed;rest/sleep promoted;single patient room provided -- -- Coping Strategies Supportive Measures -- active listening utilized;goal setting facilitated;positive reinforcement provided;self-responsibility promoted;verbalization of feelings encouraged -- Goal: Discharge Needs Assessment Outcome: Ongoing (Interventions Implemented as Appropriate) 08/01/1742 08/02/17 040 Discharge Needs Assessment Concerns To Be Addressed substance/tobacco abuse/use concerns -- Concerns Comments pt a smoker -- Readmission Within The Last 30 Days -- no previous admission in last 30 days Equipment Needed After Discharge -- other (see comments) (breast pump) Current Discharge Risk other (see comments) (pt a smoker) -- Discharge Disposition -- still a patient Current Health Anticipated Changes Related to Illness -- none Activity/Self Care Review of Systems Equipment Currently Used at Home -- none Living Environment Transportation Available -- family or friend will provide Goal: Interdisciplinary Rounds/Family Conf Outcome: Ongoing (Interventions Implemented as Appropriate) 08/02/17399 Interdisciplinary Rounds/Family Conf Participants nursing;patient Problem: (Vaginal Delivery) (Adult) Goal: Signs and Symptoms of Listed Potential Problems Will be Absent, Minimized or Managed () Signs and symptoms of listed potential problems will be absent, minimized or managed by discharge/transition of care (reference (Vaginal Delivery) (Adult) [facility]). Outcome: Ongoing (Interventions Implemented as Appropriate) 08/02/17399 (Vaginal Delivery) Problems Assessed ( Vaginal Delivery) all Problems Present ( Vaginal Delivery) pain * Plan of Care - Noris Goodrich RN - 08/01/2017 7:07 PM EDT Problem: Patient Care Overview Goal: Plan of Care Review Outcome: Ongoing (Interventions Implemented as Appropriate) 08/01/1741 09/04/17 1904 Plan of Care Review Progress -- progress towards functional goals is fair Coping/Psychosocial Plan Of Care Reviewed With patient;mother;father -- OUTCOME EVALUATION NOTE: OUTCOME SUMMARY: Pt pumping independently. Walking and voiding independently. Pain controlled with po pain meds. Fundus, bleeding, and VS WNL. PLAN MOVING FORWARD: Continue assessing for effective pumping, assess pain and medicate as appropriate. INDIVIDUALIZED FALL PREVENTION INTERVENTIONS: Patient-specific fall risk factors per assessment: [current deficits]: None Assistance [level of assistance required for transfers and ambulation]: Patient independent Supervision [direct monitoring required during toileting and ADLs]: None needed Surveillance [continuous indirect monitoring]: Purposeful rounding Patient-specific fall prevention interventions for sensory deficits provided, if applicable: [facility] GOAL OUTCOME EVALUATION: Goal: Individualization & Mutuality Outcome: Ongoing (Interventions Implemented as Appropriate) 07/30/17 1240 08/01/17 0742 Individualization Patient Specific Preferences -- pain control, visit baby in ICN Patient Specific Goals -- stable PP recovery, pain control Patient Specific Interventions -- PP care, VS per protocol, pain meds as ordered Mutuality/Individual Preferences What Anxieties, Fears or Concerns Do You Have About Your Health or Care? fear of needles -- What Questions Do You Have About Your Health or Care? none -- What Information Would Help Us Give You More Personalized Care? nothing -- Goal: Fall Prevention-Safe Patient Handling Outcome: Ongoing (Interventions Implemented as Appropriate) 07/30/17 1845 08/01/17 0741 08/01/17 0742 Musculoskeletal Interventions Muscle Strengthening activity/mobility promoted;mobility in bed promoted;personal routines for BADL/IADL promoted -- -- Laguerre Fall Risk History of Falling -- 0 -- Secondary Diagnosis -- 0 -- Ambulatory Aids -- 0 -- Intravenous Therapy/Heparin/Saline Lock -- 0 -- Gait/Transferring -- 0 -- Mental Status -- 0 -- Score -- 0 -- Daily Care Interventions Self-Care Promotion -- independence encouraged;BADL personal objects within reach -- Activity and Safety Assistive Device -- -- None OTHER Laguerre Fall Risk -- Low -- Restraint Interventions Safety Promotion/Fall Prevention -- safety round/check completed;nonskid shoes/slippers when out ofbed -- Positioning Body Position -- independent -- Goal: Infection Control Outcome: Ongoing (Interventions Implemented as Appropriate) 08/01/17 0741 Safety Interventions Isolation Precautions standard precautions maintained Infection Prevention environmental surveillance performed;rest/sleep promoted;single patient room provided Coping Strategies Supportive Measures active listening utilized;decision-making supported;positive reinforcement provided;relaxation techniques promoted;self-care encouraged;self- reflection promoted;self-responsibility promoted;verbalization of feelings encouraged Goal: Discharge Needs Assessment Outcome: Ongoing (Interventions Implemented as Appropriate) 07/30/17 1845 08/01/17 0742 Discharge Needs Assessment Concerns To Be Addressed -- substance/tobacco abuse/use concerns Concerns Comments -- pt a smoker Readmission Within The Last 30 Days -- no previous admission in last 30 days Provider Choice List(s) Given no -- Equipment Needed After Discharge -- none Current Discharge Risk -- other (see comments) (pt a smoker) Discharge Disposition -- still a patient Current Health Anticipated Changes Related to Illness -- none Activity/Self Care Review of Systems Equipment Currently Used at Home -- none Living Environment Transportation Available -- family or friend will provide Goal: Interdisciplinary Rounds/Family Conf Outcome: Ongoing (Interventions Implemented as Appropriate) 08/01/17 0742 Interdisciplinary Rounds/Family Conf Participants family;nursing;patient Problem: (Vaginal Delivery) (Adult) Goal: Signs and Symptoms of Listed Potential Problems Will be Absent, Minimized or Managed () Signs and symptoms of listed potential problems will be absent, minimized or managed by discharge/transition of care (reference (Vaginal Delivery) (Adult) [facility]). Outcome: Ongoing (Interventions Implemented as Appropriate) 08/01/17 1904 (Vaginal Delivery) Problems Assessed ( Vaginal Delivery) all Problems Present ( Vaginal Delivery) pain;hemorrhage * Op Note - Lai Ibrahim MD - 08/01/2017 12:37 PM EDT Patient Name: Stephanie Nix : [id number] MR#: [id number] ?? Case Date: 08/01/2017 ?? Surgeon: Surgeon(s) and Role: * Lai Ibrahim MD - Resident-Lesser Role * Christian Whitley MD - Resident-Surgeon Chief * Catrachita Agustin MD - Primary ?? Preoperative diagnosis: hemorrhage, retained placenta ?? Postoperative diagnosis: hemorrhage ?? Procedure: dilation and curretage ?? Anesthesia: Spinal ?? Findings: Blood clot in vagina and lower uterine segment. Small portion of membrane in decidua. ?? Complications: non3 ? Fluids: Intraprocedure Crystalloid Total ?? Estimated Blood Loss: total 1300 including delivery ?? Drains: Ibrahim ?? Disposition: regional anesthesia administered without incident. Taken back to BP room ?? Condition: doing well without problems HPI/Surgical Indications: Stephanie Nix is a 16 y.o. who is PPD 0 from an at 36w0d following an IOL for IUGR. The MD team was called to the patient's bedside for pronounced vaginal bleeding ~1 hour following delivery. Proximately 300 mLs of clot was evacuated in the room with continued bleeding so the decision was made to proceed to the OR for a dilation and curettage. Reviewed consent with the patient. Discussed risks such as maternal: bleeding, infection, need for blood transfusion, and damage to nearby organs. Also discussed rare risks such as hysterectomy. Discussed benefits and alternatives. Patient had time to ask questions which were answered. Patient signed consent and it was placed in the chart. Procedure Description: Patient was taken to the OR where regional anesthesia was administered without difficulty. The patient was given 2 gm of ancef prior to the beginning of the case. The patient was placed in dorsal lithotomy position with [place] stirrups and intermittent compression devices in place. She was then prepped and draped in the regular sterile fashion. A time out was performed and all members of the team were in agreement to proceed. A Wolf speculum inserted into the posterior aspect of the vagina. A manual sweep of the lower uterine segment further evacuated 400 mL of blood clot. A small banjo currette was then placed in the uterus and the products of conception were evacuated with the currette rotating in a circular motion until a gritty sensation was noted in 360 degrees of rotation. All instruments were then removed from the uterus. The cervix and surrounding vaginal tissue were inspected and found to be intact. The patient was then awakened from anesthesia. The patient was found to be in stable condition and then transferred to the recovery room. Dr. Agustin was present for the entire procedure without conflicting clinical responsibility Lai Ibrahim MD PGY1 PGY1 08/01/2017 Associated attestation - Catrachita Agustin MD - 08/01/2017 3:55 PM EDT Attestation: Case Date: 08/01/2017 I was present and I participated during the entire procedure (does not need to include opening and closing). CATRACHITA AGUSTIN MD 08/01/2017 * Brief Op Note - Catrachita Agustin MD - 08/01/2017 11:58 AM EDT Brief Operative Note Patient Name: Stephanie Nix : [id number] MR#: [id number] Case Date: 08/01/2017 Surgeon: Surgeon(s) and Role: * Lai Ibrahim MD - Resident-Lesser Role * Christian Whitley MD - Resident-Surgeon Chief * Catrachita Agustin MD - Primary Preoperative diagnosis: hemorrhage, retained placenta Postoperative diagnosis: hemorrhage Procedure(s) (LRB): CURRETTAGE, (WRVU 2.76) (N/A) Anesthesia: Anesthesia type not filed in the log. Findings: Blood clot in vagina and lower uterine segment. Small portion of membrane and decidua Complications: non3 Fluids: Intraprocedure Crystalloid Total None Estimated Blood Loss: total 1300 including delivery Drains: ibrahim Disposition: regional anesthesia administered without incident. Taken back to BP room Condition: doing well without problems Infection Bundle used? N/A Attestation: Case Date: 08/01/2017 I was present and I participated during the entire procedure (does not need to include opening and closing). (Please see the Surgical Encounter Summary for any Implant and Specimen details pertinent to this patient.) * Plan of Care - Angela Bishop RN - 08/01/2017 7:48 AM EDT Problem: Patient Care Overview Goal: Plan of Care Review Outcome: Ongoing (Interventions Implemented as Appropriate) 07/31/17 1930 08/01/17 0742 Plan of Care Review Progress -- progress toward functional goals as expected Coping/Psychosocial Plan Of Care Reviewed With patient -- OUTCOME EVALUATION NOTE: OUTCOME SUMMARY: Pt is about 1.5 hrs PP, VS stable, pt denies pain at this time & both legs still numb from epidural. Baby in the ICN. See care plan goal summaries & comprehensive report for pt status. PLAN MOVING FORWARD: Continue care as directed in [facility] care plans. Prepare pt to get out of bed as soon as able. INDIVIDUALIZED FALL PREVENTION: Assistance: Will need 2-person assist when getting out of bed for the 1st time after delivery. Supervision: Remind pt to call for assistance when needed, call light within reach Surveillance: Purposeful rounding [facility] OUTCOME EVALUATION: Goal: Individualization & Mutuality Outcome: Ongoing (Interventions Implemented as Appropriate) 07/30/17 1240 08/01/17 07 Individualization Patient Specific Preferences -- pain control, visit baby in ICN Patient Specific Goals -- stable PP recovery, pain control Patient Specific Interventions -- PP care, VS per protocol, pain meds as ordered Mutuality/Individual Preferences What Anxieties, Fears or Concerns Do You Have About Your Health or Care? fear of needles -- What Questions Do You Have About Your Health or Care? none -- What Information Would Help Us Give You More Personalized Care? nothing -- Goal: Fall Prevention-Safe Patient Handling Outcome: Ongoing (Interventions Implemented as Appropriate) 07/30/17 1845 07/31/17192908/01/17 0742 Musculoskeletal Interventions Muscle Strengthening activity/mobility promoted;mobility in bed promoted;personal routines for BADL/IADL promoted -- -- Laguerre Fall Risk History of Falling -- 0 -- Secondary Diagnosis -- 0 -- Ambulatory Aids -- 0 -- Intravenous Therapy/Heparin/Saline Lock -- 20 -- Gait/Transferring -- 0 -- Mental Status -- 0 -- Score -- 20 -- Daily Care Interventions Self-Care Promotion -- independence encouraged;BADL personal objects within reach;BADL personal routines maintained -- Activity and Safety Assistive Device -- -- None OTHER Laguerre Fall Risk -- Low -- Restraint Interventions Safety Promotion/Fall Prevention -- fall prevention program maintained;nonskid shoes/slippers when out of bed -- Positioning Body Position -- independent -- Goal: Infection Control Outcome: Ongoing (Interventions Implemented as Appropriate) 07/31/171929 Safety Interventions Isolation Precautions standard precautions maintained Infection Prevention single patient room provided Coping Strategies Supportive Measures active listening utilized;goal setting facilitated;positive reinforcement provided;verbalization of feelings encouraged Goal: Discharge Needs Assessment Outcome: Ongoing (Interventions Implemented as Appropriate) 08/01/17 07 Discharge Needs Assessment Concerns To Be Addressed substance/tobacco abuse/use concerns Concerns Comments pt a smoker Readmission Within The Last 30 Days no previous admission in last 30 days Equipment Needed After Discharge none Current Discharge Risk other (see comments) (pt a smoker) Discharge Disposition still a patient Current Health Anticipated Changes Related to Illness none Activity/Self Care Review of Systems Equipment Currently Used at Home none Living Environment Transportation Available family or friend will provide Goal: Interdisciplinary Rounds/Family Conf Outcome: Ongoing (Interventions Implemented as Appropriate) 08/01/17 07 Interdisciplinary Rounds/Family Conf Participants family;nursing;patient Problem: (Vaginal Delivery) (Adult) Goal: Signs and Symptoms of Listed Potential Problems Will be Absent, Minimized or Managed () Signs and symptoms of listed potential problems will be absent, minimized or managed by discharge/transition of care (reference (Vaginal Delivery) (Adult) [facility]). Outcome: Ongoing (Interventions Implemented as Appropriate) 08/01/17 07 (Vaginal Delivery) Problems Assessed ( Vaginal Delivery) all Problems Present ( Vaginal Delivery) none * L&D Delivery Note - MorganMingoLisbet B - 08/01/2017 6:39 AM EDT Delivery Note Stephanie Nix is a 16 y.o. woman who presented at 36w0d gestational age for IOL for severe IUGR with EFW 1500gms. Her was additionally complicated by ADD, depression, marijuana use, ongoing tobacco use, asthma, hypothyroidism, and varicella non-immune status. She was induced with 24 hours oral Miso, cervical Ibrahim bulb, pitocin, and AROM. She used fentanyl 100mcg x 1 and an epidural for analgesia. Her labor progress was normal. She was found to be complete at 5:24 with the presenting part at +2 station. She pushed for 41 minutes and spontaneously delivered at 6:05 hrs. The 's head was delivered in a controlled fashionin an MOA position. There was no nuchal cord. The then restituted to the maternal L. The shoulders and body then followed easily with maternal pushing efforts. A vigorous, live-born male was placed on the maternal abdomen and had APGARS of 9 and 9 at 1 and 5 minutes and had a weight of 1670 g. Strong cry was heard and adequate tone noted. The cord was then doubly clamped and cut andthe was then handed off to the ICN team. Cord blood was taken. The fundus became firm with massage and pitocin. The placenta delivered spontaneously after 10 minutes and it was a 3-vessel cord with central cord insertion into the placenta. Inspection of the vagina and perineum revealed a small hemostatic R labial laceration which was did not require repair. No complications. Blood loss estimated at 350ccs. She was in stable condition after delivery. Dr. Dot Toney was present for the entire delivery without conflicting clinical responsibilities. Lisbet Hodgson DO PGY1 08/01/2017 Information for the patient's : Rita Nix [[id number]] DELIVERY SUMMARY FOR Rita Nix (please note there is a separate summary for each fetus) 08/01/2017 6:05 AM by Vaginal, Spontaneous Delivery Sex: male Gestational Age: 36w0d Labor Events labor?: Yes GBS colonized: positive GBS prophylaxis: adequate steroids: Full Course Cervical ripening date/time: Cervical ripening type Misoprostol Rupture date/time: 07/31/172354 Rupture type: artificial rupture of membranes Fluid color: clear Augmentation: Oxytocin, AROM Labor onset date/time: 08/01/17 0000 Labor Event Times Labor onset date/time: 08/01/17 Dilation complete date/time: 08/01/17523 Start pushing date/time: 08/01/2017523 Mother Delivery Episiotomy: None Perineal lacerations: Right Labial Vaginal delivery est. blood loss (mL): 350 Surgical or additional est. blood loss (mL): 0 Combined est. blood loss (mL): 350 Repair suture: None Delivery () Delivery Date: 08/01/17 Delivery Time: 604 Sex: Male Presentation: Vertex Position: Middle Occiput Anterior Attempted ?: No Delivery Type: Vaginal Delivery Type (Specific): Vaginal, Spontaneous Delivery Pre Vaginal Count?: Pos Post Vaginal Count?: Pos Count Correct?: Pos Shoulder Dystocia Shoulder dystocia present?: No Delivery Information Delivery Location: delivery room Delivering Clinician: LISBET HODGSON Other Personnel: Provider Role ANGELA BISHOP Delivery Nurse DOT TONEY Cash Accountant CATRACHITA SALMON Charge Nurse Anesthesia Method: Epidural Cord Vessels: 3 Vessels Complications: None Cord Blood Disposition: Lab Gases Sent?: No Cord Insertion: central Assessment & APGARS Living status: Living Apgars 1 Minute: 5 Minute: 10 Minute 15 Minute 20 Minute Skin Color: 1 1 Heart Rate: 2 2 Reflex Irritability: 2 2 Muscle Tone: 2 2 Respiratory Effort: 2 2 Total: 9 9 Apgars Assigned By: Keshia LOZOYA APRN Resuscitation Method: Suctioning Suctioning Method: Bulb syringe Maternal [place] Feeding and Skin to Skin No data filed Medications No data filed Measurements Weight: 1670 g Placenta Date and Time: 08/01/2017 0615 Removal: Spontaneous Appearance: Intact Labor Length No data filed Associated attestation - Dot Toney MD - 08/01/2017 8:34 PM EDT I was present and supervising during the entire delivery. I agree with the description as outlined. The patient delivered a vigorous male as described. Cord pH 7.30 and BE-1.7. Baby admitted to [facility] due to weight. Delivery of placenta uncomplicated and appeared intact. DOT TONEY MD * Plan of Care - Yudi Mcconnell RN - 07/31/2017 5:13 PM EDT Problem: Patient Care Overview Goal: Plan of Care Review Outcome: Ongoing (Interventions Implemented as Appropriate) 07/31/17 0831 Coping/Psychosocial Plan Of Care Reviewed With patient OUTCOME EVALUATION NOTE: OUTCOME SUMMARY: Stephanie is doing well and continues with her IOL. She rec'vd a full 24hr course of PO Miso and currently has a ibrahim balloon in place. PLAN MOVING FORWARD: Continue with IOL INDIVIDUALIZED FALL PREVENTION INTERVENTIONS: Patient-specific fall risk factors per assessment: [current deficits]: none Assistance [level of assistance required for transfers and ambulation]: independent Supervision [direct monitoring required during toileting and ADLs]: Call light in reach Surveillance [continuous indirect monitoring]: Purposeful rounding Patient-specific fall prevention interventions for sensory deficits provided, if applicable: [facility] GOAL OUTCOME EVALUATION: Goal: Individualization & Mutuality Outcome: Ongoing (Interventions Implemented as Appropriate) 07/30/17123907/30/171844 Individualization Patient Specific Preferences -- progress to ; keep informed Patient Specific Goals -- maintain stable VS; progress to Patient Specific Interventions -- monitor VS; administer cervical ripening agents as ordered Mutuality/Individual Preferences What Anxieties, Fears or Concerns Do You Have About Your Health or Care? fear of needles -- What Questions Do You Have About Your Health or Care? none -- What Information Would Help Us Give You More Personalized Care? nothing -- Goal: Fall Prevention-Safe Patient Handling Outcome: Ongoing (Interventions Implemented as Appropriate) 07/30/17184407/31/17 0831 07/31/17 1515 Musculoskeletal Interventions Muscle Strengthening activity/mobility promoted;mobility in bed promoted;personal routines for BADL/IADL promoted -- -- Laguerre Fall Risk History of Falling -- 0 -- Secondary Diagnosis -- 0 -- Ambulatory Aids -- 0 -- Intravenous Therapy/Heparin/Saline Lock -- 20 -- Gait/Transferring -- 0 -- Mental Status -- 0 -- Score -- 20 -- Daily Care Interventions Self-Care Promotion -- -- -- OTHER Laguerre Fall Risk -- Low -- Restraint Interventions Safety Promotion/Fall Prevention -- -- safety round/check completed Positioning Body Position -- independent -- 07/31/17 1709 Musculoskeletal Interventions Muscle Strengthening -- Laguerre Fall Risk History of Falling -- Secondary Diagnosis -- Ambulatory Aids -- Intravenous Therapy/Heparin/Saline Lock -- Gait/Transferring -- Mental Status -- Score -- Daily Care Interventions Self-Care Promotion independence encouraged;BADL personal objects within reach;BADL personal routines maintained OTHER Laguerre Fall Risk -- Restraint Interventions Safety Promotion/Fall Prevention -- Positioning Body Position -- Goal: Infection Control Outcome: Ongoing (Interventions Implemented as Appropriate) 07/31/17 0831 Safety Interventions Isolation Precautions standard precautions maintained Infection Prevention single patient room provided Coping Strategies Supportive Measures active listening utilized;verbalization of feelings encouraged Goal: Discharge Needs Assessment Outcome: Ongoing (Interventions Implemented as Appropriate) 07/30/17123907/30/17 1845 07/31/17 0456 Discharge Needs Assessment Concerns To Be Addressed -- -- no discharge needs identified Readmission Within The Last 30 Days -- no previous admission in last 30 days -- Provider Choice List(s) Given -- no -- Equipment Needed After Discharge -- -- none Discharge Disposition -- still a patient -- Current Health Anticipated Changes Related to Illness -- none -- Activity/Self Care Review of Systems Equipment Currently Used at Home -- -- -- Living Environment Transportation Available car -- -- 07/31/17 1709 Discharge Needs Assessment Concerns To Be Addressed -- Readmission Within The Last 30 Days -- Provider Choice List(s) Given -- Equipment Needed After Discharge -- Discharge Disposition -- Current Health Anticipated Changes Related to Illness -- Activity/Self Care Review of Systems Equipment Currently Used at Home none Living Environment Transportation Available -- Problem: Labor (Cervical Ripen, Induct, Augment) (Adult,Obstetrics,Pediatric) Goal: Signs and Symptoms of Listed Potential Problems Will be Absent, Minimized or Managed (Labor) Signs and symptoms of listed potential problems will be absent, minimized or managed by discharge/transition of care (reference Labor (Cervical Ripen, Induct, Augment) (Adult,Obstetrics,Pediatric) [facility]). Outcome: Ongoing (Interventions Implemented as Appropriate) 07/31/17 0831 Labor (Cervical Ripen, Induct, Augment) Problems Assessed (Labor) all Problems Present (Labor) none * Plan of Care - Jennifer Gonsalves RN - 07/31/2017 4:59 AM EDT Problem: Patient Care Overview Goal: Plan of Care Review Outcome: Ongoing (Interventions Implemented as Appropriate) 07/30/17202407/31/17 0456 Plan of Care Review Progress -- progress toward functional goals as expected Coping/Psychosocial Plan Of Care Reviewed With patient;significant other -- OUTCOME EVALUATION NOTE: OUTCOME SUMMARY: Pt tolerating IOL well. 8th oral miso given at 0430. Pt sleeping between care. PLAN MOVING FORWARD: Continue with IOL. INDIVIDUALIZED FALL PREVENTION INTERVENTIONS: Patient-specific fall risk factors per assessment: [current deficits]: No deficit Assistance [level of assistance required for transfers and ambulation]: independent Supervision [direct monitoring required during toileting and ADLs]: Pt able to reliably call for assistance Surveillance [continuous indirect monitoring]: Purposeful rounding Patient-specific fall prevention interventions for sensory deficits provided, if applicable: [facility] GOAL OUTCOME EVALUATION: Goal: Individualization & Mutuality Outcome: Ongoing (Interventions Implemented as Appropriate) 07/30/17123907/30/171844 Individualization Patient Specific Preferences -- progress to ; keep informed Patient Specific Goals -- maintain stable VS; progress to Patient Specific Interventions -- monitor VS; administer cervical ripening agents as ordered Mutuality/Individual Preferences What Anxieties, Fears or Concerns Do You Have About Your Health or Care? fear of needles -- What Questions Do You Have About Your Health or Care? none -- What Information Would Help Us Give You More Personalized Care? nothing -- Goal: Fall Prevention-Safe Patient Handling Outcome: Ongoing (Interventions Implemented as Appropriate) 07/30/17184407/30/172024 Musculoskeletal Interventions Muscle Strengthening activity/mobility promoted;mobility in bed promoted;personal routines for BADL/IADL promoted -- Laguerre Fall Risk History of Falling -- 0 Secondary Diagnosis -- 0 Ambulatory Aids -- 0 Intravenous Therapy/Heparin/Saline Lock -- 20 Gait/Transferring -- 0 Mental Status -- 0 Score -- 20 OTHER Laguerre Fall Risk -- Low Restraint Interventions Safety Promotion/Fall Prevention -- nonskid shoes/slippers when out of bed;safety round/check completed Positioning Body Position -- independent Goal: Infection Control Outcome: Ongoing (Interventions Implemented as Appropriate) 07/30/172024 Safety Interventions Isolation Precautions standard precautions maintained Infection Prevention environmental surveillance performed;rest/sleep promoted;single patient room provided Coping Strategies Supportive Measures active listening utilized;counseling provided;decision- making supported;positive reinforcement provided;problem solving facilitated;relaxation techniques promoted;self-care encouraged;self-reflection promoted;verbalization of feelings encouraged;self-responsibility promoted Goal: Discharge Needs Assessment Outcome: Ongoing (Interventions Implemented as Appropriate) 07/30/17123907/30/17184407/31/17455 Discharge Needs Assessment Concerns To Be Addressed -- -- no discharge needs identified Readmission Within The Last 30 Days -- no previous admission in last 30 days -- Provider Choice List(s) Given -- no -- Equipment Needed After Discharge -- -- none Discharge Disposition -- still a patient -- Current Health Anticipated Changes Related to Illness -- none -- Living Environment Transportation Available car -- -- Goal: Interdisciplinary Rounds/Family Conf Outcome: Ongoing (Interventions Implemented as Appropriate) 07/31/17 0456 Interdisciplinary Rounds/Family Conf Participants nursing;patient;physician Problem: Labor (Cervical Ripen, Induct, Augment) (Adult,Obstetrics,Pediatric) Goal: Signs and Symptoms of Listed Potential Problems Will be Absent, Minimized or Managed (Labor) Signs and symptoms of listed potential problems will be absent, minimized or managed by discharge/transition of care (reference Labor (Cervical Ripen, Induct, Augment) (Adult,Obstetrics,Pediatric) [facility]). Outcome: Ongoing (Interventions Implemented as Appropriate) 07/30/172024 Labor (Cervical Ripen, Induct, Augment) Problems Assessed (Labor) all Problems Present (Labor) none * Plan of Care - Yudi Mcconnell RN - 07/30/2017 6:48 PM EDT Problem: Patient Care Overview Goal: Plan of Care Review Outcome: Ongoing (Interventions Implemented as Appropriate) 07/30/17 1240 Coping/Psychosocial Plan Of Care Reviewed With patient OUTCOME EVALUATION NOTE: OUTCOME SUMMARY: Stephanie is doing well this afternoon. She has received 3 doses of oral Miso thus far, stable VS. Feels some occassional cramping. Reactive FHR tracing, Cat I. PLAN MOVING FORWARD: Continue IOL INDIVIDUALIZED FALL PREVENTION INTERVENTIONS: Patient-specific fall risk factors per assessment: [current deficits]: none Assistance [level of assistance required for transfers and ambulation]: independent Supervision [direct monitoring required during toileting and ADLs]: Call light in reach Surveillance [continuous indirect monitoring]: Purposeful rounding Patient-specific fall prevention interventions for sensory deficits provided, if applicable: [facility] GOAL OUTCOME EVALUATION: Goal: Individualization & Mutuality Outcome: Ongoing (Interventions Implemented as Appropriate) 07/30/17 1240 07/30/17 1845 Individualization Patient Specific Preferences -- progress to ; keep informed Patient Specific Goals -- maintain stable VS; progress to Patient Specific Interventions -- monitor VS; administer cervical ripening agents as ordered Mutuality/Individual Preferences What Anxieties, Fears or Concerns Do You Have About Your Health or Care? fear of needles -- What Questions Do You Have About Your Health or Care? none -- What Information Would Help Us Give You More Personalized Care? nothing -- Goal: Fall Prevention-Safe Patient Handling Outcome: Ongoing (Interventions Implemented as Appropriate) 07/30/17 12407/30/17 18307/30/171844 Musculoskeletal Interventions Muscle Strengthening -- -- activity/mobility promoted;mobility in bed promoted;personal routines for BADL/IADL promoted Laguerre Fall Risk History of Falling 0 -- -- Secondary Diagnosis 0 -- -- Ambulatory Aids 0 -- -- Intravenous Therapy/Heparin/Saline Lock -- -- 20 Gait/Transferring 0 -- -- Mental Status 0 -- -- Score 0 -- -- OTHER Laguerre Fall Risk Low -- -- Restraint Interventions Safety Promotion/Fall Prevention -- safety round/check completed -- Positioning Body Position independent -- -- Goal: Infection Control Outcome: Ongoing (Interventions Implemented as Appropriate) 07/30/171239 Safety Interventions Isolation Precautions standard precautions maintained Infection Prevention single patient room provided Coping Strategies Supportive Measures active listening utilized;verbalization of feelings encouraged Goal: Discharge Needs Assessment Outcome: Ongoing (Interventions Implemented as Appropriate) 07/30/17123907/30/171844 Discharge Needs Assessment Concerns To Be Addressed -- no discharge needs identified Readmission Within The Last 30 Days -- no previous admission in last 30 days Provider Choice List(s) Given -- no Equipment Needed After Discharge -- none Discharge Disposition -- still a patient Current Health Anticipated Changes Related to Illness -- none Living Environment Transportation Available car -- Problem: Labor (Cervical Ripen, Induct, Augment) (Adult,Obstetrics,Pediatric) Goal: Signs and Symptoms of Listed Potential Problems Will be Absent, Minimized or Managed (Labor) Signs and symptoms of listed potential problems will be absent, minimized or managed by discharge/transition of care (reference Labor (Cervical Ripen, Induct, Augment) (Adult,Obstetrics,Pediatric) CPG). Outcome: Ongoing (Interventions Implemented as Appropriate) 07/30/171844 Labor (Cervical Ripen, Induct, Augment) Problems Assessed (Labor) all Problems Present (Labor) none documented in this encounter Plan of Treatment Not on file documented as of this encounter Procedures Procedure Name Priority Date/Time Associated Diagnosis Comments GOLD TUBE HOLD Routine 08/03/2017 12:00 PM EDT HEMOGRAM Timed 08/01/2017 5:10 PM EDT ABORH RECHECK STATUS STAT 08/01/2017 10:25 AM EDT ABO/RH TYPING STAT 08/01/2017 10:25 AM EDT ANTIBODY SCREEN STAT 08/01/2017 10:25 AM EDT TYPE AND SCREEN ([facility]/HAWA) STAT 08/01/2017 10:25 AM EDT HEMOGRAM STAT 08/01/2017 10:10 AM EDT APTT STAT 08/01/2017 10:10 AM EDT PROTHROMBIN TIME STAT 08/01/2017 10:1 0 AM EDT FIBRINOGEN STAT 08/01/2017 10:10 AM EDT CURRETTAGE, (WRVU 2.76) 08/01/2017 9:49 AM EDT SPECIMEN TO PATHOLOGY (NON-OR) Routine 08/01/2017 6:53 AM EDT SURGICAL PATHOLOGY REPORT Routine 08/01/2017 6:15 AM EDT RAPID DRUG SCREEN, URINE Routine 07/30/2017 2:20 PM EDT RAPID DRUG SCREEN W/ CONFIRMATION, URINE Routine 07/30/2017 2:20 PM EDT THC (MARIJUANA), URINE, CONFIRMATION Routine 07/30/2017 2:20 PM EDT HEMOGRAM Routine 07/30/2017 1:25 PM EDT DIFFERENTIAL, AUTOMATED Routine 07/30/2017 1:25 PM EDT CBC (WITH DIFF) Routine 07/30/2017 1:25 PM EDT documented in this encounter Results * Gold Tube HOLD (08/03/2017 12:00 PM EDT) Pathologist [facility] Gold Hold Sample in lab. [facility] Blood specimen (specimen) No Charge / Unknown 08/03/2017 12:00 PM EDT 08/03/2017 12:09 PM EDT Catrachita Agustin MD CHEMISTRY ORDERABLES [facility] [place] [address] * (ABNORMAL) Hemogram (08/01/2017 5:10 PM EDT) Pathologist [facility] White Blood Cell 22.8(H) 4.0 - 9.5 x10(3)/mc L [facility] Red Blood Cell 3.10(L) 4.00 - 5.21 x10(6)/mc L [facility] Hemoglobin 9.5(L) 11.7 - 15.5 gm/dL [facility] Hematocrit 26.2(L) 35.7 - 45.8 % [facility] Mean Cell Volume 84.5 82.6 - 94.4 fL [facility] Mean Cell Hemoglobin 30.6 27.1 - 32.0 pg [facility] Mean Cell Hemoglobin Concentration 36.3(H) 31.7 - 35.0 gm/dL [facility] Platelet 248 145 - 357 x10(3)/mc L [facility] RDW Standard Deviation 36.1(L) 37.0 - 46.0 fL [facility] RDW coefficient of variation 11.9 11.5 - 14.1 % [facility] Mean Platelet Volume 11.9 7.6 - 12.9 fL [facility] NRBC% auto 0.0 % [facility] NRBC Absolute 0.000 0.000 - 0.000 x10(3)/mc L [facility] Blood specimen (specimen) 08/01/2017 5:10 PM EDT 08/01/2017 5:17 PM EDT Narrative Resulting Agency Comment Spec In Lab Catrachita Agustin MD HEMATOLOGY ORDERABLE S Performing Organization Address City/[facility]/ZIP Co de Phone Number [facility] [place] [address] * ABORH Recheck Status (08/01/2017 10:25 AM EDT) ABORH Type Recheck Completed [facility] Blood specimen (specimen) 08/01/2017 10:25 AM EDT 08/01/2017 10:25 AM EDT Narrative Resulting Agency Comment Spec In Lab Catrachita Agustin MD BLOOD BANK LAB ORDER GEORGE Performing Organization Address [facility]/ZIP Co de Phone Number [facility] [place] [address] * Antibody screen (08/01/2017 10:25 AM EDT) Ab Screen Interp Negative [facility] Expires at [id number] on: 08/04/2017 [facility] Blood specimen (specimen) 08/01/2017 10:25 AM EDT 08/01/2017 10:25 AM EDT Narrative Resulting Agency Comment Spec In Lab Catrachita Agustin MD BLOOD BANK LAB ORDER GEORGE Performing Organization Address City/[facility]/ZIP Co de Phone Number [facility] [place] [address] * ABO/Rh Typing (08/01/2017 10:25 AM EDT) ABORH Type B Pos [facility] Blood specimen (specimen) 08/01/2017 10:25 AM EDT 08/01/2017 10:25 AM EDT Narrative Resulting Agency Comment Spec In Lab Catrachita Agustin MD BLOOD BANK LAB ORDER GEORGE [facility] [place] [address] * (ABNORMAL) Hemogram (08/01/2017 10:10 AM EDT) White Blood Cell 28.1(H) 4.0 - 9.5 x10(3)/mc L [facility] Red Blood Cell 3.66(L) 4.00 - 5.21 x10(6)/mc L [facility] Hemoglobin 11.1(L) 11.7 - 15.5 gm/dL [facility] Hematocrit 32.2(L) 35.7 - 45.8 % [facility] Mean Cell Volume 88.0 82.6 - 94.4 fL [facility] Mean Cell Hemoglobin 30.3 27.1 - 32.0 pg [facility] Mean Cell Hemoglobin Concentration 34.5 31.7 - 35.0 gm/dL [facility] Platelet 302 145 - 357 x10(3)/mc L [facility] RDW Standard Deviation 38.5 37.0 - 46.0 fL [facility] RDW coefficient of variation 11.9 11.5 - 14.1 % [facility] Mean Platelet Volume 11.1 7.6 - 12.9 fL [facility] NRBC% auto 0.0 % [facility] NRBC Absolute 0.000 0.000 - 0.000 x10(3)/mc L [facility] Blood specimen (specimen) 08/01/2017 10:10 AM EDT 08/01/2017 10:22 AM EDT Narrative Resulting Agency Comment Spec In Lab Catrachita Agustin MD HEMATOLOGY ORDERABLE S [facility] [place] [address] * Fibrinogen (08/01/2017 10:10 AM EDT) Fibrinogen 351 180 - 510 mg/dL [facility] Comment: A fibrinogen level >100 mg/dL is adequate for hemostasis in most patients without underlying bleeding disorders. Blood specimen (specimen) 08/01/2017 10:10 AM EDT 08/01/2017 10:22 AM EDT Narrative Resulting Agency Comment Spec In Lab Catrachita Agustin MD HEMATOLOGY ORDERABLE S Performing Organization Address [facility] Co de Phone Number [facility] [place] [address] * APTT (08/01/2017 10:10 AM EDT) Partial Thromboplastin Time 27 25 - 35 sec [facility] Comment: The recommended therapeutic range for full dose, unfractionated heparin at [facility] is 80 ? 114 seconds. The use of the anti-Xa (heparin) level rather than the PTT is recommended for monitoring anticoagulation intensity in critically ill patients receiving unfractionated heparin by continuous IV infusion. Blood specimen (specimen) 08/01/2017 10:10 AM EDT 08/01/2017 10:22 AM EDT Narrative Resulting Agency Comment Spec In Lab Catrachita Agustin MD HEMATOLOGY ORDERABLE S Performing Organization Address [facility] de Phone Number [facility] [place] [address] * Prothrombin Time (08/01/2017 10:10 AM EDT) Prothrombin Time 14.5 12.0 - 15.0 sec [facility] Comment: An INR <2.0 indicates adequate procoagulant activity for hemostasis in most patients without underlying bleeding disorders, though the INR may not adequately reflect hemostatic capacity in patients with liver disease and synthetic impairment. The recommended target INR range for therapeutic anticoagulation is 2.0 ? 3.0 for most applications, though lower and higher ranges may be appropriate depending on clinical circumstances. International Normalization Ratio 1.1 0.9 - 1.1 [facility] Blood specimen (specimen) 08/01/2017 10:10 AM EDT 08/01/2017 10:22 AM EDT Narrative Resulting Agency Comment Spec In Lab Catrachita Agustin MD HEMATOLOGY ORDERABLE S Performing Organization Address City/[facility]/ZIP Co de Phone Number [facility] [place] [address] * Specimen to Pathology (NON-OR) (08/01/2017 6:53 AM EDT) AP Specimen 08/01/2017 6:53 AM EDT 08/01/2017 6:53 AM EDT Narrative [facility] - 08/01/2017 6:53 AM EDT Specimen requisition ordered. ??Separate Pathology report to follow Dot Toney MD PATHOLOGY/CYTOLOGY O RDERABLES Performing Organization Address [facility] Co de Phone Number [facility] [place] [address] * Surgical Pathology Report (08/01/2017 6:15 AM EDT) Final Diagnosis [id number] ? Location: BP; BP20; A The signing pathologist has (i) examined the relevant preparation(s) for the specimen(s) and (ii) rendered or confirmed the diagnosis(es). . ?Surgical Pathology DIAGNOSIS A - Placenta, gestational age unspecified, 287 grams, approximately 50th percentile for 28 weeks, 10th percentile of less for 32 weeks or greater: ? 1. ??Unremarkable amnion and chorion ? 2. ??Villous maturation appropriate for late third trimester ? 3. ??Mildly increased perivillous fibrin deposition ? 4. 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 5. ??Unremarkable three vessel umbilical cord Electronically signed by: ??Onelia MENDOZA, Maxx Hendrix Verified: ??08/12/2017 ?Pathologist CLINICAL INFORMATION Specimen Submitted: A - Placenta Clinical History: 16 yo G1 now P1 s/p of severely IUGR , EFW 1500g Clinical Diagnosis: Same SPECIMEN PROCESSING A - Labeled/Fixative: Placenta, fresh. Qty/Size/Weight: Two, 17 x 13 x 1.7 cm, 287 grams. Tissue Description: Intact ovoid gillespie placenta with an additional detached portion of umbilical cord. Membranes: Glistening, semi-opaque, pink-whitney, 100 percent marginal insertion. Cord: 20 cm long with an average diameter of 0.9 cm; three vessels; eccentric insertion. Surface: Glistening, clement-whitney, multiple intact medium caliber blood vessels, no lesions. Maternal Surface: Intact and complete with scattered calcium deposition over 5 percent of the surface. Parenchyma: Soft, red-brown, no lesions. Sections/Processi ng: (1) membrane roll; (2) proximal and distal cord; (3-5) full thickness parenchyma. (R5) ??jerel 08/12/2017 8:16 AM EDT [facility] TISSUE SPECIMEN FROM PLACENTA / Unknown 08/01/2017 6:15 AM EDT 08/01/2017 6:15 AM EDT Lisbet Hodgson DO PATHOLOGY/CYTOLOGY ORDERABLES [facility] [place] [address] * THC (Marijuana), Urine Confirmation (07/30/2017 2:20 PM EDT) U THC Conf Test ? Result ?Flag ??Unit ?? RefValue --- Carboxy-THC Confirmation, U ??Carboxy-THC- by GC/MS ?110 ? ng/mL ??Cutoff: 3.0 ??Carboxy-THC Interpretation ? Positive. ? --ADDITIONAL INFORMATION-------- ?This report is intended for use in clinical monitoring and ?management of patients. ??It is not intended for use in ?employment-relate d testing. ?This test was developed and its performance characteristics ?determined by [facility] in a manner consistent with CLIA ?requirements. This test has not been cleared or approved by ?the U.S. Food and Drug Administration. ?Test Performed by: ?[facility] ?[address] LABORATORY Urine specimen (specimen) 07/30/2017 2:20 PM EDT 08/02/2017 8:39 AM EDT Narrative Resulting Agency Comment Spec In Lab Maritza Mcgowan MD LAB SEND OUT ORDERAB LES [facility] [place] [address] * (ABNORMAL) ELIZABETH Screen w/ Confirmation (07/30/2017 2:20 PM EDT) Barbiturates Screen, Urine None Detected None Detected [facility] Comment: The barbiturate screen detects barbiturates at concentrations >200 ng/mL. Note: Not all barbiturates cross-react equally with antibody used in this screen. A ? Presumptive Positive? result indicates that the screening result was positive but has not yet been confirmed by a highly-specific method. As with any screen, occasional false positive results from cross-reacting substances may occur. Not for Medico-Legal Purposes. Benzodiazepines Screen, Urine None Detected None Detected [facility] Comment: The benzodiazepines screen detects benzodiazepines at concentrations >100 ng/mL. Not all benzodiazepines cross-react equally with antibody used in this screen. Due to the low dosage of clonazepam, false negatives may be obtained due to low concentration of clonazepam metabolites. A ? Presumptive Positive? result indicates that the screening result was positive but has not yet been confirmed by a highly-specific method. As with any screen, occasional false positive results from cross-reacting substances may occur. Not for Medico-Legal Purposes. Cocaine Screen, Urine None Detected None Detected [facility] Comment: The cocaine metabolites screen detects benzoylecgonine (Cocaine Metabolite) at concentrations >150 ng/mL. A ? Presumptive Positive? result indicates that the screening result was positive but has not yet been confirmed by a highly-specific method. As with any screen, occasional false positive results from cross-reacting substances may occur. Not for Medico-Legal Purposes. Methadone Metabolites Screen, Urine None Detected None Detected [facility] Comment: The methadone metabolite screen detects EDDP (major methadone metabolite) at concentrations >100 ng/mL. A ? Presumptive Positive? result indicates that the screening result was positive but has not yet been confirmed by a highly-specific method. As with any screen, occasional false positive results from cross-reacting substances may occur. Not for Medico-Legal Purposes. Opiate Screen, Urine None Detected None Detected [facility] Comment: The opiates screen detects opiates at concentrations >300 ng/mL. Please note that oxycodone, oxymorphone, fentanyl, tramadol, and other synthetic opioids are not detected by the opiate screen. A ? Presumptive Positive? result indicates that the screening result was positive but has not yet been confirmed by a highly-specific method. As with any screen, occasional false positive results from cross-reacting substances may occur. Not for Medico-Legal Purposes. Cannabinoid Screen, Urine Presumptive Pos(A) None Detected [facility] Comment: The marijuana metabolites screen detects the THC metabolite (39-azt-8-carboxy-delta 9-THC) at concentrations >20 ng/mL. A ? Presumptive Positive? result indicates that the screening result was positive but has not yet been confirmed by a highly-specific method. As with any screen, occasional false positive results from cross-reacting substances may occur. Not for Medico-Legal Purposes. Oxycodone Screen, Urine None Detected None Detected [facility] Comment: The oxycodone screen detects oxycodone and oxymorphone at concentrations >100 ng/mL. A ? Presumptive Positive? result indicates that the screening result was positive but has not yet been confirmed by a highly-specific method. As with any screen, occasional false positive results from cross-reacting substances may occur. Not for Medico-Legal Purposes. Buprenorphine Screen, Urine None Detected None Detected [facility] Comment: The buprenorphine screen detects buprenorphine at concentrations >5 ng/mL. A ? Presumptive Positive? result indicates that the screening result was positive but has not yet been confirmed by a highly-specific method. As with any screen, occasional false positive results from cross-reacting substances may occur. Not for Medico-Legal Purposes. Fentanyl Screen, Urine None Detected None Detected [facility] Comment: The fentanyl screen detects fentanyl at concentrations >2 ng/mL. A ? Presumptive Positive? result indicates that the screening result was positive but has not yet been confirmed by a highly-specific method. As with any screen, occasional false positive results from cross-reacting substances may occur. Not for Medico-Legal Purposes. Tricyclics Screen, Urine None Detected None Detected [facility] Comment: The tricyclics screen detects tricyclic antidepressants at concentrations >150 ng/mL. Not all tricyclics cross-react equally with the antibody used in this screen. A ? Presumptive Positive? result indicates that the screening result was positive but has not yet been confirmed by a highly-specific method. As with any screen, occasional false positive results from cross-reacting substances may occur. Not for Medico-Legal Purposes. Ethanol Screen, Urine None Detected None Detected [facility] Comment:This urine ethanol a ssay detects ethanol at concentrations >/= 100 mg/L. Amphetamines Screen, Urine None Detected None Detected [facility] Comment: The amphetamine screen detects d-amphetamine and d-methamphetamine at concentrations >300 ng/mL. A ? Presumptive Positive? result indicates that the screening result was positive but has not yet been confirmed by a highly-specific method. As with any screen, occasional false positive results from cross-reacting substances may occur. Not for Medico-Legal Purposes. Adulterants Screen, Urine None Detected None Detected [facility] Comment: No adulteration or dilution of this urine sample was detected. All urine samples submitted for urine drugs of abuse analysis are tested for creatinine concentration, pH, and for the presence of oxidants, nitrites, and chromate. Urine specimen (specimen) 07/30/2017 2:20 PM EDT 07/30/2017 2:29 PM EDT Narrative Resulting Agency Comment Spec In Lab Catrachita Agustin MD CHEMISTRY ORDERABLES Performing Organization Address [facility] Co de Phone Number [facility] [place] [address] * ELIZABETH Request (07/30/2017 2:20 PM EDT) ELIZABETH Conf Requested Yes [facility] ELIZABETH Requested See Comment [facility] Comment:Refer to the ELIZABETH Scr een w/ Confirmation order for results. Urine specimen (specimen) 07/30/2017 2:20 PM EDT 07/30/2017 2:29 PM EDT Narrative Resulting Agency Comment Spec In Lab Catrachita Agustin MD URINE ORDERABLES Performing Organization Address [facility] Co de Phone Number [facility] [place] [address] * (ABNORMAL) Differential, Automated (07/30/2017 1:25 PM EDT) Neutrophil % 75.1 % [facility] Neutrophil Absolute 15.87(H) 1.70 - 6.10 x10(3)/mc L [facility] Lymph % 17.4 % [facility] Lymphocytes Abs 3.7(H) 0.9 - 3.2 x10(3)/mc L [facility] Monocyte % 6.0 % [facility] Monocyte Abs 1.3(H) 0.3 - 0.9 x10(3)/[facility] Eos % 0.0 % [facility] Eosinophils Abs 0.0 0.0 - 0.4 x10(3)/[facility] Basophil % 0.2 % [facility] Baso Absolute 0.0 0.0 - 0.1 x10(3)/[facility] Immature Gran % 1.30 % [facility] Comment: Immature granulocytes(IG's)percentage and absolute count will include metamyelocytes, myelocytes, and promyelocytes. Blood smears from CBCs yielding IG's will be scanned manually for concordance. If this scan disagrees with the automated IG or if promyelocytes are noted, a manual differential will be performed. Immature Gran Absolute 0.27(H) 0.00 - 0.04 x10(3)/[facility] Blood specimen (specimen) 07/30/2017 1:25 PM EDT 07/30/2017 1:36 PM EDT Narrative Resulting Agency Comment Spec In Lab Catrachita Agustin MD HEMATOLOGY ORDERABLE S [facility] [place] [address] * (ABNORMAL) Hemogram (07/30/2017 1:25 PM EDT) White Blood Cell 21.1(H) 4.0 - 9.5 x10(3)/[facility] Red Blood Cell 3.90(L) 4.00 - 5.21 x10(6)/[facility] Hemoglobin 12.1 11.7 - 15.5 gm/dL [facility] Hematocrit 33.8(L) 35.7 - 45.8 % [facility] Mean Cell Volume 86.7 82.6 - 94.4 fL [facility] Mean Cell Hemoglobin 31.0 27.1 - 32.0 pg [facility] Mean Cell Hemoglobin Concentration 35.8(H) 31.7 - 35.0 gm/dL [facility] Platelet 310 145 - 357 x10(3)/mc L [facility] RDW Standard Deviation 38.0 37.0 - 46.0 fL [facility] RDW coefficient of variation 12.1 11.5 - 14.1 % [facility] Mean Platelet Volume 11.8 7.6 - 12.9 fL [facility] NRBC% auto 0.0 % [facility] NRBC Absolute 0.000 0.000 - 0.000 x10(3)/mc L [facility] Blood specimen (specimen) 07/30/2017 1:25 PM EDT 07/30/2017 1:36 PM EDT Narrative Resulting Agency Comment Spec In Lab Catrachita Agustin MD HEMATOLOGY ORDERABLE S [facility] [place] [phone] documented in this encounter Visit Diagnoses Not on filedocumented in this encounter Administered Medications Inactive Administered Medications - up to 3 most recent administrations Medication Order MAR Action Action Date Dose Rate Site acetaminophen (TYLENOL) tablet 1,000 mg 1,000 mg, Oral, EVERY 6 HOURS PRN, Starting on Tue08/01/17 at 0655, Until Tue08/03/17 at 1926, Pain, - Moderate pain (pain scale 4-6). - Maximum dose of acetaminophen is 4000 mg from all sources in 24 hours., Recovery (Recovery-Hospital Unit), Routine acetaminophen (TYLENOL) tablet 650 mg 650 mg, Oral, EVERY 4 HOURS PRN, Starting on Tue08/01/17 at 0655, Until Tue08/03/17 at 1926, Pain, - Mild pain (pain scale 1-3) - Maximum dose of acetaminophen is 4000 mg from all sources in 24 hours., Recovery ([facility]), Routine Given 08/03/2017 11:31 AM EDT 650 mg Given 08/02/2017 9:38 PM EDT 650 mg Given 08/02/2017 11:51 AM EDT 650 mg glycerin-witch kenny (TUCKS) 12.5-50 % pads Topical (Top), 4 TIMES DAILY PRN, Irritation, perineal pain, Starting on Tue08/01/17 at 0655, Until Tue08/03/17 at 1926, Recovery (Rec[facility]ospital Unit) ibuprofen (ADVIL;MOTRIN) tablet 600 mg 600 mg, Oral, EVERY 6 HOURS PRN, Starting on Tue08/01/17 at 0655, Until Tue08/03/17 at 192, Pain, - Do not give if receiving ketorolac. - Mild to moderate pain (pain scale 1-6) - Maximum dose of 3,200 mg from all sources in 24 hours., Recovery ([facility]), Routine Given 08/03/2017 11:31 AM EDT 600 mg Given 08/02/2017 9:38 PM EDT 600 mg Given 08/02/2017 11:51 AM EDT 600 mg ibuprofen (ADVIL;MOTRIN) tablet 800 mg 800 mg, Oral, EVERY 8 HOURS PRN, Starting on Tue08/01/17 at 0655, Until Tue08/03/17 at 192, Pain, - Do not give if receiving ketorolac. - Severe pain (pain scale 7-10). - Maximum dose of 3,200 mg from all sources in 24 hours., Recovery ([facility]), Routine lactated Ringers infusion 200 mL/hr, Intravenous, CONTINUOUS, Starting on Tue08/01/17 at 1015, Until Tue08/03/17 at 1926 levothyroxine (SYNTHROID) tablet 50 mcg 50 mcg, Oral, DAILY, First dose on 07/30/17 at 1600, Until Discontinued, Routine Given 08/03/2017 7:08 AM EDT 50 mcg Given 08/02/2017 6:53 AM EDT 50 mcg Given 08/01/2017 6:50 AM EDT 50 mcg naloxone (NARCAN) injection 0.2 mg 0.2 mg, Intravenous, EVERY 1 MIN PRN, Starting on Tue07/31/17 at 2044, Until Tue08/03/17 at 192, Opioid Reversal, If respiratory rate less than 6 OR the patient is unable to arouse OR SpO2 is declining, Give for respiratory rate of less than or equal to 6 and patient is heavily sedated or unarousable. May repeat every 60 seconds to increase respiratory rate. DO NOT exceed 2 mg total dose. Per Epidural order., Recovery ([facility]), Routine nicotine (NICODERM CQ) 14 mg/24 hr patch 14 mg 14 mg, Transdermal, DAILY, First dose on 07/30/17 at 1445, Until Discontinued, Routine Given 08/02/2017 11:36 AM EDT 14 mg 06- Back Upper (Righ t) Given 08/01/2017 9:10 AM EDT 14 mg 03 - Shoulder (Left) Given 07/31/2017 8:24 AM EDT 14 mg 10 - Arm Upper (Right) nicotine (NICODERM CQ) 14 mg/24 hr patch Patch Removal Transdermal, DAILY, First dose on 07/30/17 at 1445, Until Discontinued, Remove nicotine 14 mg/24 hr patch nicotine (NICODERM CQ) 14 mg/24 hr patch Patch Verification Transdermal, 2 TIMES DAILY, First dose on Tue07/31/17 at 0230, Until Discontinued, Verify nicotine 14 mg/24 hr patch. documented in this encounter Active and Recently Administered Medications Times are shown in EDT. Scheduled Medication Order 08/01/2017 08/02/2017 08/03/2017 lactated Ringers 1,000 mL IV bolus (COMPLETED) Intravenous, ONCE, 1 dose, On Tue08/01/17 at 1015 0939 (Given - Provider: Noris Goodrich, DALIA) levothyroxine (SYNTHROID) tablet 50 mcg 50 mcg, Oral, DAILY, First dose on Tue07/30/17 at 1600, Until Discontinued, Routine 0650 (Given - Provider: Angela Bishop, RN) 0653 (Given - Provider: Angela Bishop, RN) 0708 (Given - Provider: Angela Bishop, RN) methylergonovine (METHERGINE) injection 0.2 mg (COMPLETED) 0.2 mg, Intramuscular, ONCE, 1 dose, On Tue08/01/17 at 1100, Routine 0938 (Given - Provider: Noris Goodrich, DALIA) nicotine (NICODERM CQ) 14 mg/24 hr patch 14 mg(Linked Group 1) 14 mg, Transdermal, DAILY, First dose on 07/30/17 at 1445, Until Discontinued, Routine 0910 (Given - Provider: Noris Goodrich RN) 1136 (Given - Provider: Arianne Blandon, DALIA - Comment: patient had been asleep) 0900 (Not Given - Provider: Kasia Parra, DALIA - Reason: Patient/family refused - Comment: prefers to go out and smoke) nicotine (NICODERM CQ) 14 mg/24 hr patch Patch Removal(Linked Group 1) Transdermal, DAILY, First dose on 07/30/17 at 1445, Until Discontinued, Remove nicotine 14 mg/24 hr patch 0900 (Patch Removed - Provider: Noris Goodrich RN) 1133 (Patch Removed - Provider: Arianne Blandon, RN)1634 (Patch Removed - Provider: Arianne Blandon, DALIA - Comment: patient educated but wants to smoke. MDs aware) 0900 (Patch Not Removed (add comment) - Provider: Kasia Parra, DALIA - Comment: no patch present) nicotine (NICODERM CQ) 14 mg/24 hr patch Patch Verification(Linked Group 1) Transdermal, 2 TIMES DAILY, First dose on 07/31/17 at 0230, Until Discontinued, Verify nicotine 14 mg/24 hr patch. 0900 (Patch (dose and location) verified - Provider: Noris Goodrich RN)2136 (Patch (dose and location) verified - Provider: Angela Bishop, DALIA) 1133 (Patch (dose and location) verified - Provider: Arianne Blandon, DALIA - Comment: patch on L shoulder removed, new patch on right shoulder added)2140 (Patch Not Verified (add comment) - Provider: Angela Bishop, DALIA - Comment: patch was removed earlier) 0900 (Not Given - Provider: Kasia Parra, DALIA - Reason: Patient/family refused) ondansetron (ZOFRAN) injection 4 mg (COMPLETED) 4 mg, Intravenous, ONCE, 1 dose, On Tue08/01/17 at 1145, STAT 1134 (Given - Provider: Noris Goodrich RN) oxytocin (PITOCIN) 30 units in sodium chloride 0.9% 500 mL infusion () 30 Units (500 mL), Intravenous, Administer over 1 Hours, ONCE, 1 dose, On Tue08/01/17 at 0715, ., Routine 0610 (Rate/Dose Change - Provider: Angela Bishop, RN - Comment: previous RN used same bag hanging for induction/augmentatio n)0715 (Not Given - Provider: Noris Goodrich RN - Reason: See comment - Comment: already documented) penicillin G potassium 3 million units in dextrose 5% 50 mL (CANCELED)(Linked Group 2) 3 Million Units, Intravenous, EVERY 4 HOURS, First dose on 07/30/17 at 1845, Until Discontinued, Until delivery for GBS prophylaxis, Indication for (Active or Suspected): Prophylaxis 005 (New Bag - Provider: Angela Bishop, RN)0434 (New Bag - Provider: Angela Bishop, RN) Continuous Medication Order 08/01/2017 08/02/2017 08/03/2017 lactated Ringers infusion 200 mL/hr, Intravenous, CONTINUOUS, Starting on Tue08/01/17 at 1015, Until Tue08/03/17 at 1926 1015 (Due) PRN Medication Order 08/01/2017 08/02/2017 08/03/2017 acetaminophen (TYLENOL) tablet 1,000 mg(Linked Group 3) 1,000 mg, Oral, EVERY 6 HOURS PRN, Starting on Tue08/01/17 at 0655, Until Tue08/03/17 at 1926, Pain, - Moderate pain (pain scale 4-6). - Maximum dose of acetaminophen is 4000 mg from all sources in 24 hours., Recovery ([facility]ospital Unit), Routine 0741 (See Alternative - Provider: Noris Goodrich RN)1345 (See Alternative - Provider: Radha Eaton RN) 1151 (See Alternative - Provider: Arianne Blandon, DALIA)2138 (See Alternative - Provider: Angela Bishop, DALIA) 1131 (See Alternative - Provider: Kasia Parra RN) acetaminophen (TYLENOL) tablet 650 mg(Linked Group 3) 650 mg, Oral, EVERY 4 HOURS PRN, Starting on Tue08/01/17 at 0655, Until Tue08/03/17 at 1926, Pain, - Mild pain (pain scale 1-3) - Maximum dose of acetaminophen is 4000 mg from all sources in 24 hours., Recovery ([facility]), Routine 0741 (Given - Provider: Noris Goodrich, DALIA)1345 (Given - Provider: Radha Eaton, DALIA) 1151 (Given - Provider: Arianne Blandon, DALIA)2137 (Given - Provider: Angela Bishop, DALIA) 113 (Given - Provider: Kasia Parra, DALIA) glycerin-witch kenny (TUCKS) 12.5-50 % pads Topical (Top), 4 TIMES DAILY PRN, Irritation, perineal pain, Starting on Tue08/01/17 at 0655, Until Tue08/03/17 at 1926, Recovery ([facility]ospital Unit) ibuprofen (ADVIL;MOTRIN) tablet 600 mg(Linked Group 4) 600 mg, Oral, EVERY 6 HOURS PRN, Starting on Tue08/01/17 at 0655, Until Tue08/03/17 at 1926, Pain, - Do not give if receiving ketorolac. - Mild to moderate pain (pain scale 1-6) - Maximum dose of 3,200 mg from all sources in 24 hours., Recovery ([facility]), Routine 1649 (Given - Provider: Noris Goodrich RN)2250 (Given - Provider: Angela Bishop, DALIA) 1151 (Given - Provider: Arianne Blandon, DALIA)2137 (Given - Provider: Angela Bishop RN) 113 (Given - Provider: Kasia Parra RN) ibuprofen (ADVIL;MOTRIN) tablet 800 mg(Linked Group 4) 800 mg, Oral, EVERY 8 HOURS PRN, Starting on Tue08/01/17 at 0655, Until Tue08/03/17 at 1926, Pain, - Do not give if receiving ketorolac. - Severe pain (pain scale 7-10). - Maximum dose of 3,200 mg from all sources in 24 hours., Recovery ([facility]), Routine 1649 (See Alternative - Provider: Noris Goodrich RN)2250 (See Alternative - Provider: Angela Bishop RN) 1151 (See Alternative - Provider: Arianne Blandon RN)213 (See Alternative - Provider: Angela Bishop RN) 1131 (See Alternative - Provider: Kasia Parra DALIA) naloxone (NARCAN) injection 0.2 mg 0.2 mg, Intravenous, EVERY 1 MIN PRN, Starting on Tue07/31/17 at 2044, Until Tue08/03/17 at 192, Opioid Reversal, If respiratory rate less than 6 OR the patient is unable to arouse OR SpO2 is declining, Give for respiratory rate of less than or equal to 6 and patient is heavily sedated or unarousable. May repeat every 60 seconds to increase respiratory rate. DO NOT exceed 2 mg total dose. Per Epidural order., Recovery ([facility]), Routine Linked Groups Order Group 1: nicotine (NICODERM CQ) 14 mg/24 hr patch 14 mgJump to med 14 mg, Transdermal, DAILY, First dose on 07/30/17 at 1445, Until Discontinued, Routine And nicotine (NICODERM CQ) 14 mg/24 hr patch Patch VerificationJump to med Transdermal, 2 TIMES DAILY, First dose on [place] 07/31/17 at 0230, Until Discontinued, Verify nicotine 14 mg/24 hr patch. And nicotine (NICODERM CQ) 14 mg/24 hr patch Patch RemovalJump to med Transdermal, DAILY, First dose on 07/30/17 at 1445, Until Discontinued, Remove nicotine 14 mg/24 hr patch Group 2: penicillin G potassium 5 million unit vial attach to sodium chloride 0.9% 100 mL Mini-Bag Plus (COMPLETED) 5 Million Units, Intravenous, ONCE, 1 dose, On 07/30/17 at 1445, Administer over 60 Minutes, Attach to 100 mL sodium chloride 0.9% Mini-Bag Plus. Warning Vesicant/Irritant Medication , Indication for (Active or Suspected): Prophylaxis Followed by penicillin G potassium 3 million units in dextrose 5% 50 mL (CANCELED)Jump to med 3 Million Units, Intravenous, EVERY 4 HOURS, First dose on 07/30/17 at 1845, Until Discontinued, Until delivery for GBS prophylaxis, Indication for (Active or Suspected): Prophylaxis Group 3: acetaminophen (TYLENOL) tablet 650 mgJump to med 650 mg, Oral, EVERY 4 HOURS PRN, Starting on 08/01/17 at 0655, Until Tue08/03/17 at 1926, Pain, - Mild pain (pain scale 1-3) - Maximum dose of acetaminophen is 4000 mg from all sources in 24 hours., Recovery ([facility]ospital Unit), Routine Or acetaminophen (TYLENOL) tablet 1,000 mgJump to med 1,000 mg, Oral, EVERY 6 HOURS PRN, Starting on Tue08/01/17 at 0655, Until Tue08/03/17 at 1926, Pain, - Moderate pain (pain scale 4-6). - Maximum dose of acetaminophen is 4000 mg from all sources in 24 hours., Recovery ([facility]), Routine Group 4: ibuprofen (ADVIL;MOTRIN) tablet 600 mgJump to med 600 mg, Oral, EVERY 6 HOURS PRN, Starting on Tue08/01/17 at 0655, Until Tue08/03/17 at 192, Pain, - Do not give if receiving ketorolac. - Mild to moderate pain (pain scale 1-6) - Maximum dose of 3,200 mg from all sources in 24 hours., Recovery ([facility]ospital [facility]), Routine Or ibuprofen (ADVIL;MOTRIN) tablet 800 mgJump to med 800 mg, Oral, EVERY 8 HOURS PRN, Starting on Tue08/01/17 at 0655, Until Tue08/03/17 at 1926, Pain, - Do not give if receiving ketorolac. - Severe pain (pain scale 7- 10). - Maximum dose of 3,200 mg from all sources in 24 hours., Recovery (Recovery- Hospital Unit), Routine documented in this encounter Care Teams Distribution A Class Lineman Relationship Specialty Start Date End Date Maxx Granda MD [address] [place] [id number] PCP - General 10/20/10 08/01/17 documented as of this encounter
--- OUTSIDE RECORDS SUMMARY | 2024-07-20 21:50 | XMS_ITS | Encounter Summary ---
Author Organization On License Of [facility] [place] [address] Care Team Providers Care Completions Manager Name Role Phone Maxx Granda MD Primary Care Provider [phone] Encounter Details Date Type Department Care Team ([facility] st Contact Info) Description 07/18/2017 Orders Only Obstetrics [place] [address] Jeri Orlando RN IUGR (intrauterine growth restriction) affecting care of mother, third trimester, not applicable or unspecified fetus Social History Tobacco Use Types Packs/Day Years [...] of this encounter Results * US OB Umbilical [...] 01:37 pm) PATIENT INFO: ID #: ? [id number] ?: ??[birth year] (16 yrs) Name: ? STEPHANIE SKINNERAU ?Visit Date: 07/21/2017 11:40 am PERFORMED BY: Performed By: ? Josy Wolfe RDMS Attending: ?Yumiko Hoang MD ??Angelina Referred By: ?MIRZA CANALES [facility] Location: ? [place] SERVICE(S) PROVIDED: ??UOBUA - Umbilical Artery Doppler - [id number] ?[id number] ??UBPP - Biophysical Profile - [id number] ? [id number] INDICATIONS: ??34 weeks gestation of ?Z3A.34 ??MONICA [...] 07/21/2017 01:37 pm) PATIENT INFO: ID #: [id number] : [birth year] (16 yrs) Name: STEPHANIE GAONA Visit Date: 07/21/2017 11:40 am PERFORMED BY: Performed By: Josy Wolfe RDMS Attending: Yumiko Hoang MD Referred By: MIRZA CANALES Beatrice Location: [place] SERVICE(S) PROVIDED: UOBUA - Umbilical Artery Doppler - [id number] UBPP - Biophysical Profile - [id number] INDICATIONS: 34 weeks gestation of Z3A.34 MONICA [...] F. Tone: Observed F. Movement: Observed Score: 8 F. Breathing: Observed --------- BIOMETRY: --------- GESTATIONAL [...] third trimester, not applicable or unspecified fetus IUGR (intrauterine growth restriction) affecting care of mother, third trimester, not applicable or unspecified fetus documented in this encounter Care Teams Completions Manager Relationship Specialty Start Date End Date Maxx Granda MD [address] [place] [id number] PCP - General 10/20/10 08/01/17 documented as of this encounter
--- OUTSIDE RECORDS SUMMARY | 2024-07-20 21:50 | XMS_ITS | Encounter Summary ---
Author Organization [facility] Address [facility] [place] [address] Care Team Providers Care Product Marketing Analyst Name Role Phone Maxx Granda MD Primary Care Provider [phone] Encounter Details Date Type Department Care Team (Latest Contact Info) Description 07/28/2017 12:47 PM EDT - 07/28/2017 11:59 PM EDT Hospital Encounter [place] [id number] Sarah Richmond MD [facility] [address] OBSTET[place] [address] IUGR (intrauterine growth restriction) affecting care of mother, third trimester, fetus 1 Discharge Disposition: Home Social History Tobacco Use [...] daily. 30 tablet 3 07/21/2017 vitamin with [id number] Tablet Take by mouth. nicotine (NICODERM CQ) 14 mg/[address] 1 patch onto the skin daily. 28 patch 3 07/01/2017 documented as of this encounter Plan of Treatment Not on file documented as of this encounter Procedures Procedure Name Priority Date/Time Associated Diagnosis Comments US OB FOLLOW UP Routine 07/28/2017 1:49 PM EDT IUGR (intrauterine growth restriction) affecting care of mother, third trimester, fetus 1 documented in this encounter Results * US OB Follow Up Evaluation (07/28/2017 1:49 PM EDT) Anatomical Region Laterality Modality Pelvis, Abdomen Ultrasound 07/28/2017 12:5 0 PM EDT Impressions 07/28/2017 2:34 PM EDT 3rd Trimester Summary Single intrauterine with a gestational age of 35w 3d based on Early Ultrasound ??(01/26/17). Composite age based on the current ultrasound alone is 30w 1d. Estimated weight corresponds to the < 5th percentile for 35w 3d. Current growth parameters are consistent with prior dating indicating growth. Amniotic fluid volume is normal, MONICA = 9.94 cm, MVP = 3.9 cm. Anatomical survey is limited due to the late gestational age. Umbilical artery dopplers were preformed due to AC < 10%. Normal UA dopplers demonstrated. I ??viewed the images and agree with the above interpretation. ?Catrachita Yu MD Electronically Signed Final Report ?? 07/28/2017 02:33 pm Narrative 07/28/2017 2:34 PM EDT OBSTETRICS REPORT ? (Signed Final 07/28/2017 02:33 pm) PATIENT INFO: ID #: ? [id number] ?: ??[birth year] (16 yrs) Name: ? STEPHANIE GAONA ?Visit Date: 07/28/2017 12:50 pm PERFORMED BY: Performed By: ? Xin Napoles RDMS Attending: ?Gigi MENDOZA, Catrachita [place] Referred By: ?SARAH RICHMOND Location: ? [place] SERVICE(S) PROVIDED: ??UOBFOL - Efw - Growth - Shen - [id number] ? [id number] ??UOBUA - Umbilical Artery Doppler - [id number] ?[id number] INDICATIONS: ??35 weeks gestation of ?Z3A.35 ??MFM to read, growth, fluid, UA SD OB HISTORY: Blood ?B+ ?Height: ??5'2 ?Weight (lb): 149 ? BMI: ??27.25 Type: : ?1 EVALUATION: Num Of Fetuses: ? 1 Heart ? 134 Rate(bpm): Cardiac Activity: ?? Observed, normal rhythm Presentation: ? Cephalic Placenta: ? Posterior P. Cord Insertion: ??Not visualized Amniotic Fluid MONICA FV: ?Normal MONICA Sum(cm) ? Largest Pocket(cm) 9.94 ?3.9 RUQ(cm) ? RLQ(cm) ? LUQ(cm) ?LLQ(cm) 1.28 ?2.65 ?3.9 ?2.11 --------- BIOMETRY: --------- BPD: ?74.3 ??mm ? G.Age: ?? 29w 6d ? < 3 ??% OFD: ?98.1 ??mm HC: ?278.3 ??mm ? G.Age: ?? 30w 3d ? < 3 ??% AC: ?257.0 ??mm ? G.Age: ?? 29w 6d ? < 3 ??% FL: ? 59.2 ??mm ? G.Age: ?? 30w 6d ? < 3 ??% HUM: ?50.6 ??mm ? G.Age: ?? 29w 5d ? < 5 ??% CI: ?75.7 ??% ? 70 - 86 FL/HC: ? 21.3 ??% ? 20.1 - 22.3 HC/AC: ? 1.08 ?0.93 - 1.11 FL/BPD: ?79.7 ??% ? 71 - 87 FL/AC: ? 23.0 ??% ? 20 - 24 Est. FW: ?1537 ?? gm ? 3 lb 6 oz ? < 5 ??% GESTATIONAL AGE: U/S Today: ? 30w 2d ?RADHA: ?? 10/04/17 Best: ?35w 3d ?? Det. By: ??Early ?RADHA: ?? 08/29/17 ? Ultrasound ? (01/26/17) -------- ANATOMY: -------- Cranium: ? Visualized Cavum: ? Visualized Ventricles: ?Not well seen due to position Choroid Plexus: ?Limited views Cerebellum: ?Limited views Posterior Fossa: ? Not well seen due to position Nuchal Fold: ? Not evaluated at this gestational age Face: ?Limited views Heart: ? 4-chamber view appears normal RVOT: ?Visualized LVOT: ?Not seen due to position Diaphragm: ? Visualized Stomach: ? Visualized Abdomen: ? Limited Views Abdominal Wall: ?Limited views Cord Vessels: ?3-vessels- WNL Kidneys: ? Visualized Bladder: ? Visualized Spine: ? Limited views Upper Extremities: ? Limited views Lower Extremities: ? Limited views DOPPLER - VESSELS: Umbilical Artery ??S/D ? %tile ? RI ?%tile ? PSV ?ADFV ?RDFV ?(cm/s) ??2.8 ?68.0 ??0.64 ?73.0 ? 28.2 ?No ?No CERVIX UTERUS ADNEXA: Left Ovary Not visualized Right Ovary Not visualized Procedure Note Catrachita Yu MD - 07/28/2017 OBSTETRICS REPORT (Signed Final 07/28/2017 02:33 pm) PATIENT INFO: ID #: [id number] : [birth year] (16 yrs) Name: STEPHANIE GAONA Visit Date: 07/28/2017 12:50 pm PERFORMED BY: Performed By: Xin Napoles RDMS Attending: Catrachita Yu MD Referred By: SARAH RICHMOND Location: [place] SERVICE(S) PROVIDED: UOBFOL - Efw - Growth - Shen - [id number] UOBUA - Umbilical Artery Doppler - [id number] INDICATIONS: 35 weeks gestation of Z3A.35 MFM to read, growth, fluid, UA SD OB HISTORY: Blood B+ Height: 5'2 Weight (lb): 149 BMI: 27.25 Type: : 1 EVALUATION: Num Of Fetuses: 1 Heart 134 Rate(bpm): Cardiac Activity: Observed, normal rhythm Presentation: Cephalic Placenta: Posterior P. Cord Insertion: Not visualized Amniotic Fluid MONICA FV: Normal MONICA Sum(cm) Largest Pocket(cm) 9.94 3.9 RUQ(cm) RLQ(cm) LUQ(cm) LLQ(cm) 1.28 2.65 3.9 2.11 --------- BIOMETRY: --------- BPD: 74.3 mm G.Age: 29w 6d < 3 % OFD: 98.1 mm HC: 278.3 mm G.Age: 30w 3d < 3 % AC: 257.0 mm G.Age: 29w 6d < 3 % FL: 59.2 mm G.Age: 30w 6d < 3 % HUM: 50.6 mm G.Age: 29w 5d < 5 % CI: 75.7 % 70 - 86 FL/HC: 21.3 % 20.1 - 22.3 HC/AC: 1.08 0.93 - 1.11 FL/BPD: 79.7 % 71 - 87 FL/AC: 23.0 % 20 - 24 Est. FW: 1537 gm 3 lb 6 oz < 5 % GESTATIONAL AGE: U/S Today: 30w 2d RADHA: 10/04/17 Best: 35w 3d Det. By: Early RADHA: 08/29/17 Ultrasound (01/26/17) -------- ANATOMY: -------- Cranium: Visualized Cavum: Visualized Ventricles: Not well seen due to position Choroid Plexus: Limited views Cerebellum: Limited views Posterior Fossa: Not well seen due to position Nuchal Fold: Not evaluated at this gestational age Face: Limited views Heart: 4-chamber view appears normal RVOT: Visualized LVOT: Not seen due to position Diaphragm: Visualized Stomach: Visualized Abdomen: Limited Views Abdominal Wall: Limited views Cord Vessels: 3-vessels- WNL Kidneys: Visualized Bladder: Visualized Spine: Limited views Upper Extremities: Limited views Lower Extremities: Limited views DOPPLER - VESSELS: Umbilical Artery S/D %tile RI %tile PSV ADFV RDFV (cm/s) 2.8 68.0 0.64 73.0 28.2 No No CERVIX UTERUS ADNEXA: Left Ovary Not visualized Right Ovary Not visualized IMPRESSION 3rd Trimester Summary Single intrauterine with a gestational age of 35w 3d based on Early Ultrasound (01/26/17). Composite age based on the current ultrasound alone is 30w 1d. Estimated weight corresponds to the < 5th percentile for 35w 3d. Current growth parameters are consistent with prior dating indicating growth. Amniotic fluid volume is normal, MONICA = 9.94 cm, MVP = 3.9 cm. Anatomical survey is limited due to the late gestational age. Umbilical artery dopplers were preformed due to AC < 10%. Normal UA dopplers demonstrated. I viewed the images and agree with the above interpretation. Catrachita Yu MD Electronically Signed Final Report 07/28/2017 02:33 pm Sarah Richmond MD IMG US OB ORDERABL ES documented in this encounter Visit Diagnoses Diagnosis IUGR (intrauterine growth restriction) affecting care of mother, third trimester, fetus 1 documented in this encounter Care Teams Product Marketing Analyst Relationship Specialty Start Date End Date Maxx Granda MD [address] [place] [address] PCP - General 10/20/10 08/01/17 documented as of this encounter
--- OUTSIDE RECORDS SUMMARY | 2024-07-20 21:50 | XMS_ITS | Encounter Summary ---
Author Organization [facility] Address [facility] [place] [address] Care Team Providers Care Professor Of Musicology Name Role Phone Maxx Granda MD Primary Care Provider [phone] Encounter Details Date Type Department Care Team (Latest Contact Info) Description 07/01/2017 10:15 AM EDT - 07/01/2017 11:59 PM EDT Hospital [place] [phone] Catrachita Yu MD [facility] DR OBSTETRICS [place] [address] Ultrasound for screening for growth restriction Discharge Disposition: Home Social History Tobacco Use Types Packs/Day Years Used Date Smoking Tobacco: Every Day Comments:1.5ppd until pregna ncy now <5 per day Alcohol Use Standard Drinks/Week Comments No 0 (1 standard drink = 0.6 oz pur e alcohol) Sex and Gender Information Value Date Recorded Sex Assigned at Not on file Gender Identity Not on file Sexual Orientation Not on file documented as of this encounter Medications at Time of Discharge Medication Sig Dispensed Refills Start Date End Date nicotine (NICODERM CQ) 14 mg/24 [address] 1 patch onto the skin daily. 28 patch 3 07/01/2017 levothyroxine (SYNTHROID) 50 mcg Tablet TAKE ONE TABLET BY MOUTH EVERY DAY 3 02/27/2017 07/21/2017 documented as of this encounter Plan of Treatment Not on file documented as of this encounter Procedures Procedure Name Priority Date/Time Associated Diagnosis Comments US OB DETAILED MORPHOLOGY Routine 07/01/2017 11:13 AM EDT Ultrasound for screening for growth restriction documented in this encounter Results * US OB Detailed [...] 11:22 am) PATIENT INFO: ID #: ? [id number] ?: ??[birth year] (16 yrs) Name: ? STEPHANIE GAONA ?Visit Date: 07/01/2017 11:09 am PERFORMED BY: Performed By: ? Wei DELUNA, ??Anisha Attending: ?Andrzej MENDOAZ, Sarah Ruffin Referred By: ?MIRZA CANALES CNM Location: ? [place] SERVICE(S) PROVIDED: ??[facility] - Detailed Morphology - [id number] ? [id number] ??UOBUA - Umbilical Artery Doppler - [id number] ?[id number] ??UBPP - Biophysical Profile - [id number] ? [id number] INDICATIONS: ??31 weeks gestation of ?Z3A.31 ???IUGR [...] Tone: ??Observed F. Movement: ?Observed ? Score: ??05/05 F. Breathing: ?? Not Observed --------- BIOMETRY: [...] Arch: ? Visualized SVC: ? Visualized Cardiac [place]: ?Visualized Diaphragm: ? Visualized 3 Vessel View: [...] 07/01/2017 11:22 am) PATIENT INFO: ID #: [id number] : [birth year] (16 yrs) Name: STEPHANIE GAONA Visit Date: 07/01/2017 11:09 am PERFORMED BY: Performed By: Anisha Carvajal RDMS Attending: Sarah Donnelly MD Referred By: MIRZA CANALES CNM Location: [place] SERVICE(S) PROVIDED: [facility] - Detailed Morphology - [id number] UOBUA - Umbilical Artery Doppler - [id number] [id number] UBPP - Biophysical Profile - [id number] INDICATIONS: 31 weeks gestation of Z3A.31 ?IUGR [...] F. Tone: Observed F. Movement: Observed Score: 05/05 F. Breathing: Not Observed --------- BIOMETRY: --------- [...] % GESTATIONAL AGE: U/S Today: 27w 5d RADHA: 09/25/17 Best: 31w 4d Det. By: Early [...] Visualized Ductal Arch: Visualized SVC: Visualized Cardiac [place]: Visualized Diaphragm: Visualized 3 Vessel View: Visualized [...] ultrasonics documented in this encounter Care Teams Professor Of Musicology Relationship Specialty Start Date End Date Maxx Granda MD [address] [place] [address] PCP - General 10/20/10 08/01/17 documented as of this encounter
--- OUTSIDE RECORDS SUMMARY | 2024-07-20 21:50 | XMS_ITS | Encounter Summary ---
Author Organization [facility] Address [place] [address] Care Team Providers Care Microcomputer Technician Name Role Phone Maxx Granda MD Primary Care Provider [phone] Reason for Visit * Consultation (Routine) - Closed Specialty Diagnoses / Procedures Referred By Quan armenta Referred To Contact Obstetrics and Gynecology Diagnoses IUGR Procedures [facility] Danielle Velasco, [facility] [address] [place] [address] [place] [address] [facility] [address] [place] [address] Referral ID Status Reason Start Date Expiration Date Visits Re quested Visits Authorized [id number] Closed 06/30/2017 06/30/2018 1 1 Encounter Details Date Type Department Care Team (Late st Contact Info) Description 07/01/2017 10:45 AM EDT Procedure visit Obstetrics [place] [address] aSrah Richmond MD [facility] DR OBSTETRICS [place] [address] IUGR (intrauterine growth restriction) affecting care of [...] on file documented as of this encounter Progress Notes * Sarah Richmond MD - 07/01/2017 10:45 AM EDT Gestational age: 31w2d, returns for follow-up ultrasound and limited MFM consult for IUGR. FM felt,no LOF, no bleeding or jessy. She has gained 10 lbs in this . She smokes. She is nottaking her synthroid. Patient Active Problem List Diagnosis Date Noted ??? IUGR (intrauterine growth restriction) affecting care of mother 07/07/2017 Past Medical History: Diagnosis Date ??? Asthma ??? Hypothyroidism levothyroxine 50 QD ??? Smoker No past surgical history on file. OB History Para Term AB Living 1 SAB TAB Ectopic Multiple Live Births # Outc Date GA Lbr Sourav/2nd Wgt Sex Del Anes PTL Lv 1 Current Social History Social History ??? Marital status: Single Spouse name: N/A ??? Number of children: N/A ??? Years of education: N/A Occupational History ??? Not on file. Social History Main Topics ??? Smoking status: Current Every Day Smoker Types: Cigarettes ??? Smokeless tobacco: Never Used Comment: doesn't smoke with patch on, 3 a day at most ??? Alcohol use No ??? Drug use: Yes Special: Marijuana Comment: quit ??? Sexual activity: Yes Other Topics Concern ??? Not on file Social History Narrative Ultrasound Date: 07/01/2017 Growth small for gestational age, 1130gm <5%ile Amniotic fluid volume normal Presentation cephalic Placenta anterior, posterior anatomy limited, unremarkable UA SD increased but diastolic flow present BPP 6/8 Physical Exam There were no vitals taken for this visit. General: alert, well appearing, in no apparent distress HEENT: normocephalic, atraumatic Abdomen: Gravid, soft, nontender Extremities: no redness or tenderness in the calves or thighs, no edema Neurologic:alert, oriented, normal speech, no focal findings or movement disorder noted Psychiatric: Affect is Appropriate. Assessment and Recommendations: 16 y.o. year old female at 31 2/7 weeks gestation with IUGR We reviewed the ultrasound findings and limitations of ultrasound in detecting anomalies and aneuploidy. The morphology is unremarkable but limited by gestational age. The EFW is <5%ile consistent with IUGR. The fluid and UA are normal. The BPP is 6/8, I recommended an NST. I recommend f/u US in 1 week for fluid and UA SD. I recommend an ultrasound for growth reassessment in 2 weeks. I recommend continuing NST 2x weekly. If growth remains adequate, UA SD normal, fluid normal and testing normal then I recommend delivery at 38-39 weeks. I discussed smoking cessation and provided a nicotine patch. I appreciate the opportunity to be involved in this patients care, and am available if further questions should arise. SARAH RICHMOND MD 07/07/2017 Cc: Danielle Velasco, with copy of ultrasound report documented in this encounter Plan of Treatment Not on file documented as of this encounter Results * US OB Follow [...] and agree with the above interpretation. ?Sarah Richmond MD Electronically Signed Final Report ?? 07/14/2017 05:27 pm Narrative 07/14/2017 5:28 PM EDT OBSTETRICS REPORT ? (Signed Final 07/14/2017 05:27 pm) PATIENT INFO: ID #: ? [id number] ?: ??[birth year] (16 yrs) Name: ? SUE GAONA ?Visit Date: 07/14/2017 01:32 pm PERFORMED BY: Performed By: ? Cheri DELUNA, Macy Attending: ?Andrzej MENDOZA, Sarah Ruffin Referred By: ?MIRZA VELASCO CNM Location: ? [place] SERVICE(S) PROVIDED: ??UOBFOL - Efw - Growth - Shen - [id number] ? [id number] ??UBPP - Biophysical Profile - [id number] ? [id number] ??UOBUA - Umbilical Artery Doppler - [id number] ?[id number] INDICATIONS: ??33 weeks gestation of ?Z3A.33 ??growth, [...] ? planes F. Movement: ?Observed ? Score: ??07/05 F. [...] Right Ovary Not visualized Procedure Note Sarah Richmond MD - 07/14/2017 OBSTETRICS REPORT (Signed Final 07/14/2017 05:27 pm) PATIENT INFO: ID #: [id number] : [birth year] (16 yrs) Name: SUE GAONA Visit Date: 07/14/2017 01:32 pm PERFORMED BY: Performed By: Macy Alonzo RDMS Attending: Sarah Richmond MD Referred By: MIRZA VELASCO CNM Location: [place] SERVICE(S) PROVIDED: UOBFOL - Efw - Growth - Shen - [id number] [id number] UBPP - Biophysical Profile - [id number] UOBUA - Umbilical Artery Doppler - [id number] INDICATIONS: 33 weeks gestation of Z3A.33 growth, [...] Tone: Observed planes F. Movement: Observed Score: 8/8 F. Breathing: Observed --------- BIOMETRY: --------- BPD: [...] 5 oz < 5 % GESTATIONAL AGE: /S Today: 29w 5d RADHA: 09/24/17 Best: 33w [...] and agree with the above interpretation. Sarah Richmond MD Electronically Signed Final Report 07/14/2017 05:27 pm Sarah Richmond MD IMG US OB ORDERABL ES documented in this encounter Visit Diagnoses Diagnosis IUGR (intrauterine growth restriction) affecting care of mother, third trimester, not applicable or unspecified fetus IUGR (intrauterine growth restriction) affecting care of mother, third trimester, not applicable or unspecified fetus documented in this encounter Care Teams Microcomputer Technician Relationship Specialty Start Date End Date Maxx Granda MD [address] [place] [address] PCP - General 10/20/10 08/01/17 documented as of this encounter
--- OUTSIDE RECORDS SUMMARY | 2024-07-20 21:50 | XMS_ITS | Encounter Summary ---
Author Organization [facility] Address [facility] [place] [address] Care Team Providers Care Occupational Health Physiotherapist Name Role Phone Maxx Granda MD Primary Care Provider [phone] Encounter Details Date Type Department Care Team (Latest Contact Info) Description 07/07/2017 10:15 AM EDT - 07/07/2017 11:59 PM EDT Hospital [place] [phone] Sarah Donnelly MD [facility] [address] [place] [address] IUGR (intrauterine growth restriction) affecting care of [...] Refills Start Date End Date vitamin with bkekdgwr-Eh-Sipr-FA Tablet Take by mouth. nicotine (NICODERM CQ) [...] Priority Date/Time Associated Diagnosis Comments US OB LIMITED Routine 07/07/2017 11:16 AM EDT IUGR (intrauterine growth restriction) affecting care of mother, third trimester, not applicable or unspecified fetus documented in this encounter Results * US OB Limited (07/07/2017 11:16 AM EDT) Anatomical Region Laterality Modality Pelvis, Abdomen Ultrasound 07/07/2017 10:4 8 AM EDT Impressions 07/07/2017 12:28 PM EDT 3rd Trimester Summary (MONICA and UA Doppler ONLY) Single intrauterine with a gestational age of 32w 3d based on Early Ultrasound ??(01/26/17). Amniotic fluid volume is appropriate for gestational age, MONICA = 12.89 cm, MVP = 4.84 cm. Limited study for UA Doppler and fluid assessment. Normal Umbilical Artery Dopplers, without AEDF or REDF. ??I ??viewed the images and agree with the above interpretation. ?Sarah Donnelly MD Electronically Signed Final Report ?? 07/07/2017 12:28 pm Narrative 07/07/2017 12:28 PM EDT OBSTETRICS REPORT ? (Signed Final 07/07/2017 12:28 pm) PATIENT INFO: ID #: ? [id number] ?: ??[birth year] (16 yrs) Name: ? STEPHANIE GAONA ?Visit Date: 07/07/2017 10:48 am PERFORMED BY: Performed By: ? Macy Alonzo RDMS Attending: ?Andrzej MENDOZA, Sarah Ruffin Referred By: ?MIRZA CANALES CNM Location: ? [place] SERVICE(S) PROVIDED: ??UOBLIM - Transabdominal - Estes - [id number] ?[id number] ??UOBUA - Umbilical Artery Doppler - [id number] ?74802 INDICATIONS: ??32 weeks gestation of ?Z3A.32 ??mfm TO READ. ??UA SD, fluid. OB HISTORY: Blood ?B+ ?Height: ??5'2 ?Weight (lb): 147 ? BMI: ??26.88 Type: : ?1 EVALUATION: Num Of Fetuses: ? 1 Heart ? 132 Rate(bpm): Cardiac Activity: ?? Observed, normal rhythm Presentation: ? Cephalic Placenta: ? Posterior P. Cord Insertion: ??Limited Visualization Amniotic Fluid MONICA FV: ?Appropriate for gestational age MONICA Sum(cm) ? Largest Pocket(cm) 12.89 ? 4.84 RUQ(cm) ? RLQ(cm) ? LUQ(cm) ?LLQ(cm) 2.9 ? 2.45 ?4.84 ? 2.7 --------- BIOMETRY: --------- GESTATIONAL AGE: Best: ?32w 3d ?? Det. By: ??Early ?RADHA: ?? 08/29/17 ? Ultrasound ? (01/26/17) -------- ANATOMY: -------- Face: ?Nose/ Lips seen - WNL Heart: ? 4- chamber view appears normal RVOT: ?Limited views LVOT: ?Limited views Diaphragm: ? Visualized Stomach: ? Visualized Cord Vessels: ?3 Vessel Cord - WNL Kidneys: ? Visualized Bladder: ? Visualized DOPPLER - VESSELS: Umbilical Artery ??S/D ? %tile ? RI ?%tile ? PSV ?ADFV ?RDFV ?(cm/s) 3.26 ?78.0 ??0.69 ?81.0 ?45.51 ?No ?No CERVIX UTERUS ADNEXA: Left Ovary Not visualized Right Ovary Not visualized Procedure Note Sarah Donnelly MD - 07/07/2017 OBSTETRICS REPORT (Signed Final 07/07/2017 12:28 pm) PATIENT INFO: ID #: [id number] : [birth year] (16 yrs) Name: STEPAHNIE GAONA Visit Date: 07/07/2017 10:48 am PERFORMED BY: Performed By: Macy Alonzo RDMS Attending: Sarah Donnelly MD Referred By: MIRZA CANALES CNM Location: [place] SERVICE(S) PROVIDED: UOBLIM - Transabdominal - Estes - [id number] UOBUA - Umbilical Artery Doppler - [id number] [id number] INDICATIONS: 32 weeks gestation of Z3A.32 mfm TO READ. UA SD, fluid. OB HISTORY: Blood B+ Height: 5'2 Weight (lb): 147 BMI: 26.88 Type: : 1 EVALUATION: Num Of Fetuses: 1 Heart 132 Rate(bpm): Cardiac Activity: Observed, normal rhythm Presentation: Cephalic Placenta: Posterior P. Cord Insertion: Limited Visualization Amniotic Fluid MONICA FV: Appropriate for gestational age MONICA Sum(cm) Largest Pocket(cm) 12.89 4.84 RUQ(cm) RLQ(cm) LUQ(cm) LLQ(cm) 2.9 2.45 4.84 2.7 --------- BIOMETRY: --------- GESTATIONAL AGE: Best: 32w 3d Det. By: Early RADHA: 08/29/17 Ultrasound (01/26/17) -------- ANATOMY: -------- Face: Nose/ Lips seen - WNL Heart: 4- chamber view appears normal RVOT: Limited views LVOT: Limited views Diaphragm: Visualized Stomach: Visualized Cord Vessels: 3 Vessel Cord - WNL Kidneys: Visualized Bladder: Visualized DOPPLER - VESSELS: Umbilical Artery S/D %tile RI %tile PSV ADFV RDFV (cm/s) 3.26 78.0 0.69 81.0 45.51 No No CERVIX UTERUS ADNEXA: Left Ovary Not visualized Right Ovary Not visualized IMPRESSION 3rd Trimester Summary (MONICA and UA Doppler ONLY) Single intrauterine with a gestational age of 32w 3d based on Early Ultrasound (01/26/17). Amniotic fluid volume is appropriate for gestational age, MONICA = 12.89 cm, MVP = 4.84 cm. Limited study for UA Doppler and fluid assessment. Normal Umbilical Artery Dopplers, without AEDF or REDF. I viewed the images and agree with the above interpretation. Sarah Donnelly MD Electronically Signed Final Report 07/07/2017 12:28 pm Sarah Donnelly MD IMG US OB ORDERABL ES documented in this encounter Visit Diagnoses Diagnosis IUGR (intrauterine growth restriction) affecting care of mother, third trimester, not applicable or unspecified fetus documented in this encounter Care Teams Occupational Health Physiotherapist Relationship Specialty Start Date End Date Maxx Granda MD [address] [place] [address] PCP - General 10/20/10 08/01/17 documented as of this encounter
--- OUTSIDE RECORDS SUMMARY | 2024-07-20 21:50 | XMS_ITS | Encounter Summary ---
Author Organization [facility] [place] [address] Care Team Providers Care Straw Baler Name Role Phone Maxx Granda MD Primary Care Provider Encounter Details Date Type Department Care Team ([facility] st Contact Info) Description 07/19/2017 Orders Only Obstetrics [place] [address] Linette Field RN IUGR (intrauterine growth restriction) affecting care of mother, third trimester, fetus 1 Social History Tobacco Use Types Packs/Day Years [...] documented as of this encounter Visit Diagnoses Diagnosis IUGR (intrauterine growth restriction) affecting care of mother, third trimester, fetus 1 documented in this encounter Care Teams Straw Baler Relationship Specialty Start Date End Date Maxx Granda MD [address] [place] [address] PCP - General 10/20/10 08/01/17 documented as of this encounter
--- OUTSIDE RECORDS SUMMARY | 2024-07-20 21:50 | XMS_ITS | Encounter Summary ---
Author Organization [facility] Address [facility] [place] [address] Care Team Providers Care Bed And Breakfast Innkeeper Name Role Phone Maxx Granda MD Primary Care Provider [phone] Reason for Visit * Reason Comments Ultrasound Follow-up Non-stress Test Encounter Details Date Type Department Care Team (Late st Contact Info) Description 07/07/2017 11:30 AM EDT Routine Obstetrics [place] [phone] Sarah Richmond MD [facility] DR OBSTETRICS [place] [address] GA: 32w3d Social History Tobacco Use Types Packs/Day Years [...] Sign Reading Time Taken Comments Blood Pressure 108/59 07/07/2017 11:39 AM EDT Pulse - - Temperature - - Respiratory Rate - - Oxygen Saturation - - Inhaled Oxygen Concentration - - Weight 68.7 kg (151 lb 8 oz) 07/07/2017 11:39 AM EDT Height 157.5 cm (5' 2) 07/07/2017 11:55 AM EDT Body Mass Index 27.71 07/07/2017 11:39 AM EDT Body Mass Index Percentile 90.13% 07/07/2017 11: 55 AM EDT Growth Chart: CDC (Girls, 2- 20 Years) documented in this encounter Progress Notes * Oksana Mosley LNA - 07/07/2017 11:30 AM EDT The patient denies travel by her or her partner to an area with endemic Zika infection including [place]. * Linette Field RN - 07/07/2017 11:30 AM EDT Stephanie is here for NST due to IUGR. Explanation of NST test given. NST Fetus A 07/07/2017 HR (Beats/Min) 135 HR Variability moderate (amplitude range 6 to 25 bpm) HR Accelerations present;greater than/equal to 15 bpm;lasting at least 15 seconds HR Decelerations none Contraction Frequency (Minutes) none Nonstress Test Interpretation Reactive, >32 weeks: two 15 bpm accelerations lasting 15 seconds Overall Impression Reassuring for gestational age Comments reviewed by Dr. Richmond during visit. * Sarah Richmond MD - 07/07/2017 11:30 AM EDT Gestational age: 32w3d, returns for follow-up ultrasound and limited MFM consult for IUGR. Patient Active Problem List Diagnosis Date Noted ??? IUGR (intrauterine growth restriction) affecting care of mother 07/07/2017 Ultrasound Date: 07/07/2017 Amniotic fluid volume normal, MVP 4.8cm Presentation cephalic Placenta posterior anatomy limited. UA SD normal Physical Exam BP 108/59 Ht 157.5 cm (5' 2) Wt 68.7 kg (151 lb 8 oz) BMI 27.71 kg/m2 General: alert, well appearing, in no apparent distress HEENT: normocephalic, atraumatic Abdomen: Gravid, soft, nontender Neurologic:alert, oriented, normal speech, no focal findings or movement disorder noted Psychiatric: Affect is Appropriate. Assessment and Recommendations: 16 y.o. year old female at 32w3d weeks gestation IUGR. We reviewed the ultrasound findings and limitations of ultrasound in detecting anomalies and aneuploidy. The fluid and UA SD are normal. The NST was 130 reactive ,no decels. I recommend f/u US in 1 week for growth, fluid, and UA SD. I recommend continuing 2/week NST. She reports rare smoking with nicotine patch. I appreciate the opportunity to be involved in this patients care, and am available if further questions should arise. SARAH RICHMOND MD 07/10/2017 Cc: Sarah Richmond, with copy of ultrasound report documented in this encounter Plan of Treatment Not on file documented as of this encounter Visit Diagnoses Diagnosis IUGR (intrauterine growth restriction) affecting care of mother, third trimester, not applicable or unspecified fetus documented in this encounter Care Teams Bed And Breakfast Innkeeper Relationship Specialty Start Date End Date Maxx Granda MD [address] [place] [address] PCP - General 10/20/10 08/01/17 documented as of this encounter
--- OUTSIDE RECORDS SUMMARY | 2024-07-20 21:50 | XMS_ITS | Encounter Summary ---
Author Organization [facility] Address [facility] [place] [address] Care Team Providers Care Mill Work Name Role Phone Unknown Primary Care Provider Unavailabl e Encounter Details Date Type Department Care Team ([facility] st Contact Info) Description 07/28/2017 Telephone Obstetrics [place] [address] Linette Field RN Social History Tobacco Use Types Packs/Day Years [...] Telephone Encounter - Linette Field RN - 08/02/2017 7:47 AM EDT Opened in error documented in this encounter Plan of Treatment Not on file documented as of this encounter Visit Diagnoses Not on filedocumented in this encounter Care Teams Mill Work Relationship Specialty Start Date End Date Unknown None PCP - General 08/02/17 documented as of this encounter
--- OUTSIDE RECORDS SUMMARY | 2024-07-20 21:50 | XMS_ITS | Encounter Summary ---
Author Organization [facility] Address [facility] [place] [address] Care Team Providers Care Circle Edger Name Role Phone Maxx Granda MD Primary Care Provider [phone] Encounter Details Date Type Department Care Team ([facility] st Contact Info) Description 07/14/2017 4:15 PM EDT Initial Obstetrics [place] [address] Sarah Donnelly MD [facility] [address] [place]ST[place] [address] GA: 33w3d Social History Tobacco Use Types Packs/Day Years [...] of this encounter Progress Notes * Sarah Donnelly MD - 07/14/2017 4:15 PM EDT Here for NOB for IUGR. Us today appropriate growth, IUGR, normal fluid and UA SD. HNG117 reactive, no decel. Smoking 1-4 cig per day using patch. Recommend continued 2x/ week NST, weekly fluid and UASD US and growth assessment US in 2 weeks. Not taking thyroid medications. Check TSH. documented in this encounter Plan of Treatment Not on file documented as of this encounter Procedures Procedure Name Priority Date/Time Associated Diagnosis Comments ABO/RH TYPING Routine 07/14/2017 5:03 PM EDT IUGR (intrauterine growth restriction) affecting care of mother, third trimester, not applicable or unspecified fetus ANTIBODY SCREEN Routine 07/14/2017 5:03 PM EDT IUGR (intrauterine growth restriction) affecting care of mother, third trimester, not applicable or unspecified fetus TYPE AND SCREEN ([facility]/REX) Routine 07/14/2017 5:03 PM EDT IUGR (intrauterine growth restriction) affecting care of mother, third trimester, not applicable or unspecified fetus VARICELLA ZOSTER ANTIBODY, IGG Routine 07/14/2017 5:03 PM EDT IUGR (intrauterine growth restriction) affecting care of mother, third trimester, not applicable or unspecified fetus TSH Routine 07/14/2017 5:03 PM EDT Hypothyroidism, unspecified type documented in this encounter Results * Antibody screen (07/14/2017 5:03 PM EDT) Ab Screen Interp Negative [facility] Expires at [id number] on: 07/17/2017 [facility] Blood specimen (specimen) 07/14/2017 5:03 PM EDT 07/14/2017 5:14 PM EDT Narrative Resulting Agency Comment Spec In Lab Sarah Donnelly MD BLOOD BANK LAB ORD ERABLES Performing Organization Address City/[facility]/ZIP Co de Phone Number [facility] [place] [address] * ABO/Rh Typing (07/14/2017 5:03 PM EDT) ABORH Type B Pos [facility] Blood specimen (specimen) 07/14/2017 5:03 PM EDT 07/14/2017 5:14 PM EDT Narrative Resulting Agency Comment Spec In Lab Sarah Donnelly MD BLOOD BANK LAB ORD ERABLES [facility] [place] [address] * Varicella zoster Antibody, IgG (07/14/2017 5:03 PM EDT) Varicella Zoster Antibody IgG Neg [facility] Blood specimen (specimen) 07/14/2017 5:03 PM EDT 07/15/2017 7:15 AM EDT Narrative Resulting Agency Comment Spec In Lab Sarah Donnelly MD IMMUNOLOGY ORDERAB LES Performing Organization Address [facility] Co de Phone Number [facility] [place] [address] * TSH (07/14/2017 5:03 PM EDT) Thyroid Stimulating Hormone 3.30 0.27 - 4.20 mlU/ML [facility] Blood specimen (specimen) 07/14/2017 5:03 PM EDT 07/14/2017 5:13 PM EDT Narrative Resulting Agency Comment Spec In Lab Sarah Donnelly MD CHEMISTRY ORDERABL ES Performing Organization Address [facility] de Phone Number [facility] [place] [address] documented in this encounter Visit Diagnoses Diagnosis Hypothyroidism, unspecified type IUGR (intrauterine growth restriction) affecting care of mother, third trimester, not applicable or unspecified fetus documented in this encounter Care Teams Circle Edger Relationship Specialty Start Date End Date Maxx Granda MD [address] [place] [address] PCP - General 10/20/10 08/01/17 documented as of this encounter
--- OUTSIDE RECORDS SUMMARY | 2024-07-20 21:50 | XMS_ITS | Encounter Summary ---
Author Organization [facility] [place] [address] Care Team Providers Care Registered Physical Therapist Name Role Phone Maxx Granda MD Primary Care Provider [phone] Reason for Visit * Auth/Cert Specialty Diagnoses / Procedures Referred By Quan t Referred To Contact Diagnoses IUGR (intrauterine growth restriction) affecting care of mother, third trimester, fetus 1 Procedures L&D Referral ID Status Reason Start Date Expiration Date Visits Re quested Visits Authorized [id number] 1 1 Encounter Details Date Type Department Care Team (Late st Contact Info) Description 08/01/2017 10:04 AM EDT [place]est[place] [address] Ryan Riley MD [facility] [place] [address] Keena Harris MD [facility] [place] [address] Anesthesia Record Procedure Summary Procedure Name Responsible Anesthesiologist Anesthesia Start Time Anesthesia Stop Time CURRETTAGE, (WRVU 2.76) (Uterus) Ryan Riley MD 08/01/17 1004 08/01/17 1050 Events Date Time Event Comment 08/01/2017 1004 AN Verify 1004 AN Verify 1004 Start 1004 An Start Data 1011 Spinal 1011 L Uterine Displacement 1015 Anesthesia Ready 1045 an stop data 1050 Recovery or ICU Handoff Jovita ent care was transferred to the destination unit staff after review of the patient's medical history, current anesthetic/surgical status and plan, according to the Provider Handoff Checklist. 1050 Stop 1536 Meds Name Total PHENYLephrine INF 210 mcg BUpivacaine 0.75% spinal 1.4 mg Oxytocin INF 308.33 mL miSOPROStol tablet 600 mcg ceFAZolin 2,000 mg Lactated Ringers 500 mL * Agents Name O2 Air N2O * Blood No blood administrations on file. Lines, Drains, and Airways Type Details Placement Removal (RETIRED) Peripheral IV Line - Single Lumen 07/30/17; 1325; median cubital vein (antecubital fossa), left; tily-fyx-qskpps catheter system; 20 gauge; Jayesh RN; intradermal injection, tolerated well, appears comfortable; no longer indicated, removed per policy/procedure, catheter/device intact; 08/03/17; 1130 07/30/17 1325 by Yudi Mcconnell RN 08/03/17 113 by Kasia Parra RN Epidural 07/31/17; 2128 (libby [email or web address] via procedure documentation); This RN did not remove; epidural line not present at this time of assessment; 08/01/17; 1745 07/31/172128 by Keena Harris MD 08/01/17 174 by Amira Negro RN Urethral Catheter 08/01/17; 0955; Catheter not present at this time as noted by this RN; 08/01/17; 1745 08/01/17 0955 by Noris Goodrich RN 08/01/171744 by Amira Negro, RN documented in this encounter Social History Tobacco Use Types Packs/Day Years [...] on file documented as of this encounter OR Notes * Anesthesia Procedure Notes - Shad Amado MD - 08/01/2017 10:32 AM EDT Associated Order(s): ANE NEURAXIAL UPDATED Procedure: Neuraxial Block Primary Anesthetic Type: Spinal The patient was greeted. The sedation plan, its benefits, risks and alternatives were discussed with the patient. The patient has consented to the procedure. The medical history and chart were reviewed. The timeout was performed. Start time: 08/01/2017 10:05 AM End time: 08/01/2017 10:10 AM Patient Location: Operating Room Patient Prep Position: Sitting Prep: Patient Draped, Hand Hygiene, Hat, Mask, Sterile Gloves and Chlorhexidine Injection technique: single-shot Skin Anesthetic Lidocaine 1% 3 ml Procedure Technique Level of needle insertion: L5-S1 Needle approach: midline Needle Type: [facility] Gauge: 25 Needle length: 3.5 in Number of attempts: 2 Intrathecal Injection The patient received the following medication/s as an intrathecal injection: Bupivacaine 0.75% w dextrose 1.4 ml Epinephrine Epi Wash Events/Notes Events: None Additional Notes: Epidural stopped 4 hours ago and catheter removed 2 hours ago. Resident/BIOTECHNOLOGIST: SHAD AMADO Resident/BIOTECHNOLOGIST: Fellow: Attending Physician: RYAN RILEY ~~~~~~~~~~~~~~~~~~~~~~~~~~~~~~~~~~~~~~~~~~~~~~~~~~~~~~~~~~~~ * Anesthesia Procedure Notes - Keena Harris MD - 07/31/2017 9:27 PM EDT Associated Order(s): ANE NEURAXIAL - LABOR EPIDURAL ONLY Procedure: Labor Analgesia Neuraxial Block Labor Analgesia Type: Epidural The patient was greeted. The sedation plan, its benefits, risks and alternatives were discussed with the patient. The patient has consented to the procedure. The medical history and chart were reviewed. The timeout was performed. Start time: 07/31/2017 8:50 PM End time: 07/31/2017 9:20 PM Patient Location: [facility] Patient Prep Position: Sitting Injection technique: continuous Procedure Technique Level of needle insertion: L4-5 Needle Type: Tuohy Gauge: 18 Needle length: 3.5 in Needle insertion depth when HODAN achieved: 6 cm Technique for Loss of Resistance: HODAN saline Catheter at skin depth: 12 cm Dressing/Secured with: Chlorhexidine Tegaderm and Tegaderm Number of attempts: 2 Events/Notes Events: unexpected parasthesia, Right side. Unable to eliminate despite tuohy manipulation. Tuohy removed at attempted at different interspace. Additional Notes: Paresthesias as above. Good HODAN second attempt. Catheter threaded easily to 18cm,pulled back to 12 cm and secured. Negative test dose. Tolerated well. Resident/BIOTECHNOLOGIST: KEENA HARRIS Second Resident/BIOTECHNOLOGIST: Fellow: Attending Physician: TOM MATOS ~~~~~~~~~~~~~~~~~~~~~~~~~~~~~~~~~~~~~~~~~~~~~~~~~~~~~~~~~~~~ * Anesthesia Preprocedure Evaluation - Shad Amado MD - 07/31/2017 8:31 PM EDT Pre-Anesthesia Evaluation for: Stephanie Nix a 16 y.o. female. Patient Active Problem List Diagnosis ??? IUGR (intrauterine growth restriction) affecting care of mother ??? Hypothyroidism ??? History of tobacco use ??? Supervision of normal first teen in third trimester ??? Positive GBS test ??? Maternal varicella, non-immune ??? Marijuana use ??? Attention deficit disorder (ADD) without hyperactivity ??? Depression Past Medical History: Diagnosis Date ??? Asthma ??? Ganglion of wrist 08/27/2013 ??? History of tobacco use 07/30/2017 ??? Hypothyroidism levothyroxine 50 QD ??? Learning difficulty 09/19/2012 ??? Smoker No past surgical history on file. Social History Substance Use Topics ??? Smoking status: Current Every Day Smoker Packs/day: 0.25 Types: Cigarettes ??? Smokeless tobacco: Never Used Comment: doesn't smoke with patch on, 3 a day at most ??? Alcohol use No History Drug Use ??? Yes ??? Special: Marijuana Comment: quit No Known Allergies Medications: MAR and/or home medications have been reviewed. Physical Exam: Vitals: 07/31/17 1958 BP: 131/89 Pulse: 66 Resp: Temp: Body mass index is 27.8 kg/(m^2). Height: 157.5 cm (5' 2) Weight - Scale: 68.9 kg (152 lb) Airway Assessment: Mallampati: III TM distance: >3 FB Neck ROM: full Cardiovascular Assessment: Pulmonary Assessment: Dental Assessment: - normal exam Misc Assessment: Anesthesia Plan: ASA 2 spinal and epidural, Pt is a 16 y.o. female who is and 35w6d here with severe IUGR for IOL Medical history significant for tobacco use, mild asthma. No HTN. No back pathology. No contraindication to a neuraxial technique. She has no allergies. No easy bleeding or clotting. Denies personal or family history of problems with anesthesia. Lab Results Component Value Date/Time HGB 12.1 07/30/2017 01:25 PM PLATELET 310 07/30/2017 01:25 PM Discussed potential need for labor analgesia and/or anesthesia to possibly include epidural, spinal, CSE, and anesthesia for (which includes all of the above with the addition of general anesthesia). Answered all questions, consent obtained and placed in patient's chart. Addendum: Patient brought to the OR emergently @ 10 am for D&C due to post hemorrhage (600ml). Epidural was turned off 4 hours ago and catheter had been removed 2 hours ago. Patient remained HD stable in the OR (SBP= 120s and HR=70s), so plan for spinal. Region - Other Informed Consent: Anesthetic plan and risks discussed with patient. Plan discussed with resident and attending. PAT Staff Note documented in this encounter Miscellaneous Notes * Addendum Note - Tom Matos MD - 08/12/2017 11:50 AM EDT Addendum created 08/12/17 1150 by Tom Matos MD Anesthesia Attestations filed documented in this encounter Plan of Treatment Not on file documented as of this encounter Procedures Procedure Name Priority Date/Time Associated Diagnosis Comments ANES PLACEHOLDER FOR LABOR EPIDURAL Routine 08/02/2017 7:34 AM EDT ANE NEURAXIAL UPDATED Routine 08/02/2017 7:13 AM EDT documented in this encounter Results * ANE NEURAXIAL - LABOR EPIDURAL ONLY (08/02/2017 7:34 AM EDT) Narrative Tom Matos MD - 08/02/2017 7:34 AM EDT Keena Harris MD ? 07/31/2017 ??9:29 PM Procedure: ?? Labor Analgesia Neuraxial Block Labor Analgesia Type: Epidural The patient was greeted. The sedation plan, its benefits, risks and alternatives were discussed with the patient. ??The patient has consented to the procedure. ??The medical history and chart were reviewed. ??The timeout was performed. Start time: 07/31/2017 8:50 PM End time: 07/31/2017 9:20 PM [facility] Patient Prep Position: Sitting Injection technique: continuous Procedure Technique Level of needle insertion: L4-5 Needle Type: Tuohy Gauge: 18 Needle length: 3.5 in Needle insertion depth when HODAN achieved: 6 cm Technique for Loss of Resistance: HODAN saline Catheter at skin depth: 12 cm Dressing/Secured with: Chlorhexidine Tegaderm and Tegaderm Number of attempts: 2 Events/Notes Events: ??unexpected parasthesia, Right side. Unable to eliminate despite tuohy manipulation. Tuohy removed at attempted at different interspace. Additional Notes: ??Paresthesias as above. Good HODAN second attempt. Catheter threaded easily to 18cm, pulled back to 12 cm and secured. Negative test dose. Tolerated well. Resident/BIOTECHNOLOGIST: ?KEENA HARRIS Second Resident/BIOTECHNOLOGIST: Fellow: ? Attending Physician: ? TOM MATOS ~~~~~~~~~~~~~~~~~~~~~~~~~~~~~~~~~~~~~~~~~~~~~~~~~~~~~~~~~~~~ Tom Matos MD MANAGER OF PURCHASING [facility] * ANE NEURAXIAL UPDATED (08/02/2017 7:13 AM EDT) Narrative Tom Matos MD - 08/02/2017 7:13 AM EDT Shad Amado MD ? 08/01/2017 10:33 AM Procedure: ?? Neuraxial Block Primary Anesthetic Type: Spinal The patient was greeted. The sedation plan, its benefits, risks and alternatives were discussed with the patient. ??The patient has consented to the procedure. ??The medical history and chart were reviewed. ??The timeout was performed. Start time: 08/01/2017 10:05 AM End time: 08/01/2017 10:10 AM Patient Location: Operating Room Patient Prep Position: Sitting Prep: Patient Draped, Hand Hygiene, Hat, Mask, Sterile Gloves and Chlorhexidine Injection technique: single-shot Skin Anesthetic Lidocaine 1% ??3 ml Procedure Technique Level of needle insertion: L5-S1 Needle approach: midline Needle Type: [facility] Gauge: 25 Needle length: 3.5 in Number of attempts: 2 Intrathecal Injection The patient received the following medication/s as an intrathecal injection: Bupivacaine 0.75% w dextrose 1.4 ml Epinephrine ??Epi Wash Events/Notes Events: ??None Additional Notes: ??Epidural stopped 4 hours ago and catheter removed 2 hours ago. Resident/BIOTECHNOLOGIST: ?SHAD AMADO Second Resident/BIOTECHNOLOGIST: Fellow: ? Attending Physician: ? RYAN RILEY ~~~~~~~~~~~~~~~~~~~~~~~~~~~~~~~~~~~~~~~~~~~~~~~~~~~~~~~~~~~~ Ryan Riley MD MANAGER OF PURCHASING [facility] documented in this encounter Visit Diagnoses Not on filedocumented in this encounter Administered Medications Inactive Administered Medications - up to 3 most recent administrations Medication Order MAR Action Action Date Dose Rate Site BUpivacaine 0.75% in dextrose 8.25% (intrathecal) (SENSORCAINE) 0.75 % (7.5 mg/mL) injection PRN, Starting on Tue08/01/17 at 1011, Until Tue08/01/17 at 1050, Anesthesia Intra-op, Routine Given 08/01/2017 10:11 AM EDT 1.4 mg ceFAZolin (ANCEF) 1g in dextrose 5% 50mL PRN, Starting on Tue08/01/17 at 1016, Until Tue08/01/17 at 1050, Administer over 30 Minutes, Anesthesia Intra-op Given 08/01/2017 10:16 AM EDT 2,000 mg lactated Ringers infusion CONTINUOUS PRN, Starting on Tue08/01/17 at 1004, Until Tue08/01/17 at 1050, Anesthesia Intra-op New Bag 08/01/2017 10:04 AM EDT miSOPROStol tablet PRN, Starting on Tue08/01/17 at 1041, Until Tue08/01/17 at 1050, Anesthesia Intra-op, Routine Given 08/01/2017 10:41 AM EDT 600 mcg oxytocin (PITOCIN) 30 units in sodium chloride 0.9% 500 mL infusion CONTINUOUS PRN, Starting on Tue08/01/17 at 1013, Until Tue08/01/17 at 1050, Anesthesia Intra-op, Routine New Bag 08/01/2017 10:13 AM EDT 500 mL/hr 500 mL/hr PHENYLephrine (LAMINE-SYNEPHRINE) 20 mg in sodium chloride 250 mL (standard ADULT & Chace greater than 20kg) infusion CONTINUOUS PRN, Starting on Tue08/01/17 at 1011, Until Tue08/01/17 at 1050, Anesthesia Intra-op, Routine New Bag 08/01/2017 10:11 AM EDT 30 mcg/min 22.5 mL/hr documented in this encounter Care Teams Registered Physical Therapist Relationship Specialty Start Date End Date Maxx Granda MD [address] [place] [address] PCP - General 10/20/10 08/01/17 documented as of this encounter
--- OUTSIDE RECORDS SUMMARY | 2024-07-20 21:50 | XMS_ITS | Encounter Summary ---
Author Organization [facility] Address [facility] [place] [address] Care Team Providers Care Brush Sander Name Role Phone Maxx Granda MD Primary Care Provider [phone] Reason for Visit * Reason Comments Routine Visit Non-stress Test Encounter Details Date Type Department Care Team ([facility] st Contact Info) Description 07/21/2017 2:15 PM EDT Routine Obstetrics [place] [id number] Sarah Richmond MD [facility] DR OBSTETRICS [place] [address] GA: 34w3d Social History Tobacco Use Types Packs/Day Years [...] Sign Reading Time Taken Comments Blood Pressure 109/60 07/21/2017 1:31 PM EDT Pulse - - Temperature - - Respiratory Rate - - Oxygen Saturation - - Inhaled Oxygen Concentration - - Weight 67.9 kg (149 lb 11.2 oz) 07/21/2017 1:31 PM EDT Height - - Body Mass Index 27.38 07/07/2017 11:55 AM EDT Body Mass Index Percentile 89.28% 07/21/2017 1:3 1 PM EDT Growth Chart: CDC (Girls, 2- 20 Years) documented in this encounter Progress Notes * BroLinette qureshi RN - 07/21/2017 2:15 PM EDT NST following ultrasound today, IUGR. Discussed that she needs to remember to take both her synthroid and vitamin daily. * Lisa Kim MD - 07/21/2017 2:15 PM EDT Sue Gaona is a 16 y.o. female at 34w3d who presents for visit and F/U US. She reports good movement. Occas BH ctx. No bleeding or LOF. NST reactive and BPP 10/10. Reviewed her TSH 3.31. Advised her to restart Synthroid 50 mcg daily. Reviewed Varicella NI. Discussed vaccination . RTC in 1 week for MONICA, UA doppler and repeat growth scan. Patient has twice weekly NSTs ([facility] and [facility] Patient seen with Dr. Richmond, attending MFM. LISA KIM MD PGY-3 07/21/2017 * Sarah Richmond MD - 07/21/2017 2:15 PM EDT I have seen the patient and reviewed the resident's above history and I agree with the details as written. The assessment and plan were formulated in discussion with me and I agree with them as documented. FM felt, no LOF, no bleeding or jessy. NST reactive no decels. US normal fluid, normal UA SD,BPP 8/8. Needs GBBS next visit. Cont 2x week NST, weekly fluid, weekly UA SD and Q2 week growth US. documented in this encounter Plan of Treatment [...] 02:33 pm) PATIENT INFO: ID #: ? [id number] ?: ??[birth year] (16 yrs) Name: ? SUE GAOAN ?Visit Date: 07/28/2017 12:50 pm PERFORMED BY: Performed By: ? Xin Napoles RDMS Attending: ?Gigi MENDOZA, Catrachita [place] Referred By: ?SARAH RICHMOND Location: ? [place] SERVICE(S) PROVIDED: ??UOBFOL - Efw - Growth - Shen - [id number] ? [id number] ??UOBUA - Umbilical Artery Doppler - [id number] ?[id number] INDICATIONS: ??35 weeks gestation of ?Z3A.35 ??MFM [...] 07/28/2017 02:33 pm) PATIENT INFO: ID #: [id number] : [birth year] (16 yrs) Name: SUE GAONA Visit Date: 07/28/2017 12:50 pm PERFORMED BY: Performed By: Xin Napoles RDMS Attending: Catrachita Yu MD Referred By: SARAH RICHMOND Location: [place] SERVICE(S) PROVIDED: UOBFOL - Efw - Growth - Shen - [id number] UOBUA - Umbilical Artery Doppler - [id number] INDICATIONS: 35 weeks gestation of Z3A.35 MFM [...] care of mother, third trimester, fetus 1 IUGR (intrauterine growth restriction) affecting care of mother, third trimester, fetus 1 documented in this encounter Care Teams Brush Sander Relationship Specialty Start Date End Date Maxx Granda MD [address] [place] [id number] PCP - General 10/20/10 08/01/17 documented as of this encounter
--- OUTSIDE RECORDS SUMMARY | 2024-07-20 21:50 | XMS_ITS | Encounter Summary ---
Author Organization [facility] [place] [address] Care Team Providers Care Sign Designer Name Role Phone Maxx Granda MD Primary Care Provider [phone] Reason for Visit * Reason Comments Initial Visit transfer of care Non-stress Test Encounter Details Date Type Department Care Team (Late st Contact Info) Description 07/14/2017 2:30 PM EDT Initial Obstetrics [place] [id number] Linette Field RN [place]: [id number] Social History Tobacco Use Types [...] Sign Reading Time Taken Comments Blood Pressure 113/57 07/14/2017 2:58 PM EDT Pulse - - Temperature - - Respiratory Rate - - Oxygen Saturation - - Inhaled Oxygen Concentration - - Weight 68.6 kg (151 lb 3.2 oz) 07/14/2017 2:58 P M EDT Height - - Body Mass Index 27.65 07/07/2017 11:55 AM EDT Body Mass Index Percentile 89.97% 07/14/2017 2:5 8 PM EDT Growth Chart: [facility] (Girls, 2- 20 Years) documented in this encounter Progress Notes * Linette Field RN - 07/14/2017 2:30 PM EDT NST for IUGR. Asked to have bloodwork done, T& S ordered - has not been taking her synthroid dose. NST Fetus A 07/14/2017 HR (Beats/Min) 130 HR Variability moderate (amplitude range 6 to 25 bpm) HR Accelerations present;greater than/equal to 15 bpm;lasting at least 15 seconds HR Decelerations none Contraction Frequency (Minutes) none Nonstress Test Interpretation Reactive, >32 weeks: two 15 bpm accelerations lasting 15 seconds Overall Impression Reassuring for gestational age Comments reviewed during visit by Dr. Donnelly documented in this encounter Plan of Treatment Not on file documented as of this encounter Procedures Procedure Name Priority Date/Time Associated Diagnosis Comments DRUG SCREEN WITH CONFIRMATION, URINE (SEND OUT) Routine 07/06/2017 GLUCOSE TOLERANCE, 3 HOURS Routine 06/17/2017 HEMOGLOBIN AND HEMATOCRIT, BLOOD Routine 06/08/2017 GC/CHLAMYDIA Routine 02/17/2017 TSH Routine 02/14/2017 INITIAL EXTERNAL RESULTS PANEL Routine 01/17/2017 documented in this encounter Results * Varicella zoster Antibody, IgG (07/14/2017 5:03 PM EDT) Varicella Zoster Antibody IgG Neg [facility] Blood specimen (specimen) 07/14/2017 5:03 PM EDT 07/15/2017 7:15 AM EDT Narrative Resulting Agency Comment Spec In Lab Sarah Donnelly MD IMMUNOLOGY ORDERAB LES [facility] [place] [address] * (ABNORMAL) Drug Screen with Confirmation, Urine (SEND OUT) (07/06/2017) Drug Scrn, Compreh Positive THC(EXTERNAL /ABN) Urine specimen (specimen) 07/06/2017 Historical Provider URINE ORDERABLES * (ABNORMAL) Glucose tolerance, 3 hours (06/17/2017) Glucose Fasting 83(Externa l Lab) Glucose 2 hour 131([facility]) Glucose 3 hour 101([facility]) Blood specimen (specimen) 06/17/2017 Historical Provider CHEMISTRY ORDERAB LES * (ABNORMAL) Hemoglobin and Hematocrit, blood (06/08/2017) Hemoglobin 11.7(Exter nal Lab) Hematocrit 33.0(Exter nal Lab) Platelet 235([facility]) Glucose Post Prandial, 1 Hour 137([facility]) Blood specimen (specimen) 06/08/2017 Historical Provider HEMATOLOGY ORDERA BLES * GC/Chlamydia (02/17/2017) GC Gene Amp Negative GC Source Urine Chlamydia Gene Amp Negative Chlm Source Urine 02/17/2017 Historical Provider MICROBIOLOGY - NERAL ORDERABLES * (ABNORMAL) TSH (02/14/2017) Thyroid Stimulating Hormone 1.86(Exter nal Lab) Alpha-fetoprotei n Profile Four ([facility]) Negative(E xternal Lab) Cystic Fibrosis Report Negative(E xternal Lab) Blood specimen (specimen) 02/14/2017 Historical Provider CHEMISTRY ORDERAB LES * (ABNORMAL) - Initial External Results (01/17/2017) Hemoglobin 13.3(Exter nal Lab) Hematocrit 36.9(Exter nal Lab) Mean Cell Volume 83.3(Exter nal Lab) Platelet 234([facility]) Rubella Antibody IgG Positive(E xternal Lab) Syphilis IgG Negative(E xternal Lab) Hepatitis B Surface Antigen Negative(E xternal Lab) HIV 1/2 Ab Negative(E xternal Lab) Thyroid Stimulating Hormone 4.12(Ext[facility]) Free T4 0.91(Exter nal Lab) Drug Scrn, Compreh + THC([facility]) 01/17/2017 Historical Provider POINT OF CARE BELINDA T ORDERABLES documented in this encounter Visit Diagnoses Diagnosis IUGR (intrauterine growth restriction) affecting care of mother, third trimester, not applicable or unspecified fetus documented in this encounter Care Teams Sign Designer Relationship Specialty Start Date End Date Maxx Granda MD [address] [place] [id number] PCP - General 10/20/10 08/01/17 documented as of this encounter
--- OUTSIDE RECORDS SUMMARY | 2024-07-20 21:50 | XMS_ITS | Encounter Summary ---
Author Organization [facility] Address [facility] [place] [address] Care Team Providers Care Director Of Scout Work Name Role Phone Unknown Primary Care Provider Unavailabl e Reason for Visit * Auth/Cert Specialty Diagnoses / Procedures Referred By Quan t Referred To Contact Diagnoses IUGR (intrauterine growth restriction) affecting care of mother, third trimester, fetus 1 Procedures L&D Referral ID Status Reason Start Date Expiration Date Visits Re quested Visits Authorized [id number] 1 1 Encounter Details Date Type Department Care Team (Latest Contact Info) Description 07/30/2017 12:10 PM EDT - 08/03/2017 5:26 PM EDT [place] [address] Catrachita Agustin MD [facility] [address] [place] [address] IUGR (intrauterine growth restriction) affecting care of mother, third trimester, fetus 1; Supervision of normal first teen in third trimester Discharge Disposition: Home Social History Tobacco Use [...] this encounter Discharge Summaries * Meena Holder Danny - 08/03/2017 2:04 PM EDT Discharge Summary Patient Name: Stephanie Nix Patient Age: 16 y.o. Language: Malaysian Race: White Ethnicity: Not nor Admit date: 07/30/2017 Discharge date and time: 08/03/2017 2:08 PM Attending Physician: Catrachita Agustin MD Discharge Physician: Sarah Richmond MD Care Provider: [facility] Follow-up Recommendations for Providers: 2 week depression screen 6 week visit Inpatient Provider Contact Information: [facility] [place] INCLINED RAILWAY OPERATOR Department, Discharge Diagnoses (Hospital Problems) and Secondary [...] by: ?? IUGR: Transfer of care to [facility] at 32w3d for IUGR. On 07/28 [...] delivery of a small for gestational age infant weighing 1670g. ?? course was complicated by [...] Information for the patient's : Rita Nix [[id number]] INFORMATION Rita Nix 08/01/2017 6:05 AM by [...] Quantity: 28 patch Refills: 3 vitamin with uhzejcae-Bj-Gwrb-FA Tab Take by mouth. Refills: 0 Smoking [...] Depression Contact Numbers: If you see an master deputy sheriff court security call: [phone] 9 am - 5 pm, after 5 pm If you see a rn palliative care call: [phone] all hours If you see a family practitioner call: [phone] all hours If you were transferred to our institution for delivery and cannot reach your local OB provider, call the master deputy sheriff court security numbers. General Instructions None Future Appointments and Orders Future Appointments Provider Department Dept Phone 09/14/2017 1:00 PM Sarah Richmond MD Obstetrics and Gynecology at [place] [phone] Future Orders Complete By Expires Durable Medical Equipment Order [EQ148 Custom] As directed Process Instructions: Scheduling Instructions: Comments: Stephanie Nix 2000 [address] [facility] [id number] (home) [employer] Central intake- #[phone] fax [phone] [place], [place] Stgoet-[phone] RX: Hospital Grade Electric Breast Pump- Lactina Breast Pump Length of Need: 3 Months Purpose of Appliance: To Initiate and Maintain Medical Necessity: /Lactating Mother- Z39.1 Breast Engorgement relative to born at 36 1/7 gestation - P92.9 Feeding problem of , unspecified Small for Gestational age infant (SGA)- P05.08 Premature in ICN from mother- P07.30 Prematurity UBALDO 779.5 Questions: Name/Description of requested item: Medella breast pump Size requested: Vendor Name/Contact information: [employer] Follow-up [IFJ091 Custom] As directed Process Instructions: Scheduling Instructions: Comments: - visit 6 weeks after delivery with [facility] provider. - phone call 2 weeks after delivery for depression screening with [facility] [place] provider. Questions: Discharge References/Attachments None documented in [...] this in detail. Call your doctor or rn palliative care for: ??? Fever more than 100.5 ??? [...] follow up appointment. You may call the [facility] at any time for guidance or for answers to questions that come up prior to you follow up appointment. Your [facility] [place] Provider can be reached during office hours at ??? Midwives ??? Obstetricians ??? [facility] Follow-up Clinic ??? AFTER OFFICE HOURS for the master deputy sheriff court security or rn palliative care control tower operator * Patient Instructions* Meena Holder - 08/03/2017 [...] Depression Contact Numbers: If you see an master deputy sheriff court security call: [phone] 9 am - 5 pm, after 5 pm If you see a rn palliative care call: [phone] all hours If you see a family practitioner call: [phone] all hours If you were transferred to our institution for delivery and cannot reach your local OB provider, call the master deputy sheriff court security numbers. documented in this encounter Medications at [...] daily. 30 tablet 3 07/21/2017 vitamin with gtvxrwqg-Az-Lttq-FA Tablet Take by mouth. nicotine (NICODERM CQ) 14 mg/[address] 1 patch onto the skin daily. 28 patch 3 07/01/2017 documented as of this encounter Progress Notes * Ed Nichole Anshul - 08/03/2017 4:01 AM EDT Vaginal Delivery Note Information for the patient's : Boyd Baby Boy [[id number]] Delivery Date and Time:08/01/2017 6:05 AM Delivery Type: Vaginal, Spontaneous Delivery ID: Stephanie iNx is an 16 year old G1, now [...] PPD#2 s/p after IOL for severely IUGR (wght 1670 gms) with course complicated by retained POCs necessitating methergine, misoprostol, and D&C, EBL 1300. ?? Patient is doing well without problems. ??? nutrition: Breast and bottle feeding well. ??? [...] it's just not the same. Educated on [facility] [place] being smoke-free campus, patient expresses understanding. MDs [...] Catrachita Agustin MD Stephanie Nix 2000 [address] [facility] [address] [facility] [address] (M) [employer] Central intake- #[phone] fax [phone] [place], [place] Vvhzlw-[phone] RX: Hospital Grade Electric Breast Pump- Lactina Breast Pump Length of Need: 3 Months Purpose of Appliance: To Initiate and Maintain Medical Necessity: /Lactating Mother- Z39.1 Breast Engorgement relative to infant born at 36 1/7 gestation - P92.9 Feeding problem of , unspecified Small for Gestational age (SGA)- P05.08 Premature Infant in ICN from mother- P07.30 Prematurity UBALDO 779.5 Patient will picker box operator the pump in the [facility] store. Donta Pierre RN Intensive Care Nursery Commodity DirectorMortgage Assistant of Care Management Phone:# [phone] Beeper: #[id number] Fax: # [phone] * Lai Ibrahim MD - 08/02/2017 4:48 AM EDT Vaginal Delivery Note Information for the patient's : Rita Nix Boy [[id number]] Delivery Date and Time:08/01/2017 6:05 AM Delivery [...] Patient is doing well without problems. ??? nutrition: Breast and bottle feeding well. ??? [...] increasing milk supply, and pump care. * Lisbet Hodgson - 08/01/2017 5:28 AM EDT Multidisciplinary Second Stage Labor Progress Note Patient ID: Stephanie Nix is a 16 y.o. at 36w0d gestation being induced for severe IUGR, EFW 1500gms. A multidisciplinary meeting was held to discuss discuss maternal/ status. This included the charge nurse (Catrachita Salmon), Labor nurse (Angela Bishop), Attending Cloth Mercerizer Operator (Dot Toney), and [place] OB resident (Lisbet [...] discussed with the patient and herfamily. Lisbet Hodgson DO PGY-1 Associated attestation - Dot Toney [...] time. DOT TONEY MD * Lisbet Hodgson B - 08/01/2017 1:32 AM EDT Labor Progress [...] with further observation. DOT TONEY MD * Lisbet Hodgson - 08/01/2017 12:02 AM EDT Labor Progress [...] hr BP: (113-148)/(70-89) Cervix Exam: Dilation: 4 (07/31/172) Effacement: 70 Station: -1 Cervical Position: Mid-Position [...] BP: (113-148)/(70-89) Cervix Exam: Dilation: 4 (07/31/17 192) Effacement: 70 Station: -2 Cervical Position: Mid-Position [...] will give fentanyl. DOT TONEY MD * Linette Horn - 07/31/2017 3:20 PM EDT Labor Progress [...] 1 (SVE performed by Dr Mcgowan) (07/31/17 8475) Effacement: 75 Station: High -4 Cervical Position: Posterior Consistency: Medium Franklin Score: 4 OB Examiner: Roslyn MENDOZA Heart Rate Interpretation: Baseline 120, moderate variability, + accels, no decels Witmer: occasional contractions GBS Lab Results Component Value [...] 130, moderate variability, + accels, no decels Witmer: occasional contractions GBS Lab Results Component Value [...] been complicated by: -- IUGR: ELKIN to MFM at 32w3d for IUGR. On 07/28 ultrasound, [...] -- Varicella non-immune Is expecting a male infant, to be [...] Taking at Unknown time ??? vitamin with hrgtkwgb-Bn-Rvzi-FA Tablet Take by mouth. Taking at Unknown [...] 115, Variability: minimal, Accels: yes, Decels: variable, Witmer: occasional, irregular contractions Record Review Labs Lab [...] seen and discussed with Dr. Rodriguez, Attending INCLINED RAILWAY OPERATOR. Maritza Mcgowan MD PGY-1 07/30/2017 Associated attestation [...] pumping X 48 hours with physiologic engorgement [place] oil to nipples prior to pumping Frequent and prolonged maternal-infant skin to skin contact Close support and follow up Lizeth Westfall MPH,RN, IBCLC [facility] [place] Services * Med Student Progress Note - [...] ibuprofen PRN. Breast & formula feeding for nutrition without difficulty. Ambulating, voiding spontaneously, and [...] blood exposure: blood sample for testing ?? Infant nutrition: BF and formula feeding for infant [...] May live in their own apartment in [facility] (Stephanie is uncertain exact address) that they [...] and family nearby. Ann's mother lives in [place] and his father lives in [place], [place]. The rest of his family lives in [place], [place] which is the town where Ann works. 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 She just completed her COMBATANT SWIMMER training program while working at [employer] and had only worked four shifts since receiving her COMBATANT SWIMMER license before she had the baby. She will have 6+ weeks off for unpaid maternity leavae. 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 He had Tuesday through Tuesday off from work paid, but has returned to work this week. Stephanie reports having WIC, Food [place], and Medicaid. Both she and Ann have vehicles. Stephanie reports th [...] Insurance: N/A Prescription Coverage: Yes Preferred Pharmacy: [facility] in [facility] Other: None Primary Care Provider: None [...] transition of care planning. VALERY COTE Pager: [phone] * Med Student Progress Note - Alejandrina [...] Implemented as Appropriate) 08/01/17 0741 08/01/17213108/02/17 0400 Safety Interventions Isolation Precautions -- -- standard precautions maintained Infection Prevention environmental surveillance performed;rest/sleep promoted;single patient room provided -- -- Coping Strategies Supportive Measures -- active listening utilized;goal setting facilitated;positive reinforcement provided;self-responsibility promoted;verbalization of feelings encouraged -- Goal: Discharge Needs Assessment Outcome: Ongoing (Interventions Implemented as Appropriate) 08/01/1742 08/02/17399 Discharge Needs Assessment Concerns To Be Addressed [...] Outcome: Ongoing (Interventions Implemented as Appropriate) 08/01/1741 08/01/17 1904 Plan of Care Review Progress -- [...] PM EDT Patient Name: Stephanie Nix : [id number] MR#: [id number] ?? Case Date: 08/01/2017 ?? Surgeon: Surgeon(s) [...] Operative Note Patient Name: Stephanie Nix : [id number] MR#: [id number] Case Date: 08/01/2017 Surgeon: Surgeon(s) and Role: [...] Ongoing (Interventions Implemented as Appropriate) 07/30/17 1845 07/31/17192908/01/17741 Musculoskeletal Interventions Muscle Strengthening activity/mobility promoted;mobility in [...] Control Outcome: Ongoing (Interventions Implemented as Appropriate) 09/03/17 1930 Safety Interventions Isolation Precautions standard precautions maintained Infection Prevention single patient room provided Coping Strategies Supportive Measures active listening utilized;goal setting facilitated;positive reinforcement provided;verbalization of feelings encouraged Goal: Discharge Needs Assessment Outcome: Ongoing (Interventions Implemented as Appropriate) 08/01/17 0742 Discharge Needs Assessment Concerns To [...] Ongoing (Interventions Implemented as Appropriate) 08/01/17 0742 (Vaginal Delivery) Problems Assessed ( Vaginal Delivery) [...] and spontaneously delivered at 6:05 hrs. The infant's head was delivered in a controlled fashionin [...] Information for the patient's : Rita Nix [[id number]] DELIVERY SUMMARY FOR Rita Nix (please note [...] Labor Event Times Labor onset date/time: 08/01/17 0000 Dilation complete date/time: 08/01/17523 Start pushing date/time: 08/01/2017523 Mother Delivery Episiotomy: None Perineal lacerations: Right Labial Vaginal delivery est. blood loss (mL): 350 Surgical or additional est. blood loss (mL): 0 Combined est. blood loss (mL): 350 Repair suture: None Delivery ([place]) Delivery Date: 08/01/17 Delivery Time: 604 Sex: Male Presentation: Vertex Position: Middle Occiput Anterior Attempted ?: No Delivery Type: Vaginal Delivery Type (Specific): Vaginal, Spontaneous Delivery Pre Vaginal Count?: Pos Post Vaginal Count?: Pos Count Correct?: Pos Shoulder Dystocia Shoulder dystocia present?: No Delivery Information Delivery Location: delivery room Delivering Clinician: LISBET HODGSON Other Personnel: Provider Role ANGELA BISHOP Delivery Nurse DOT TONEY Cloth Mercerizer Operator CATRACHITA SALMON Charge Nurse Anesthesia Method: Epidural [...] Method: Suctioning Suctioning Method: Bulb syringe Maternal [place] Feeding and Skin to Skin No data filed [place] Medications No data filed Measurements Weight: 1670 [...] pH 7.30 and BE-1.7. Baby admitted to [facility] due to weight. Delivery of placenta uncomplicated [...] Outcome: Ongoing (Interventions Implemented as Appropriate) 07/30/17 18407/31/17 0831 07/31/17 1515 Musculoskeletal Interventions Muscle Strengthening [...] Implemented as Appropriate) 07/30/17 1240 07/30/17 1845 07/31/17 0456 Discharge Needs Assessment Concerns [...] Ongoing (Interventions Implemented as Appropriate) 07/30/17 12407/30/17 1834 07/30/171844 Musculoskeletal Interventions Muscle Strengthening -- -- activity/mobility [...] Tube HOLD (08/03/2017 12:00 PM EDT) Pathologist [facility] Gold Hold Sample in lab. [facility] Blood specimen (specimen) No Charge / Unknown 08/03/2017 12:00 PM EDT 08/03/2017 12:09 PM EDT Catrachita Agustin MD CHEMISTRY ORDERABLES [facility] [place] [address] * (ABNORMAL) Hemogram (08/01/2017 5:10 PM EDT) [facility] White Blood Cell 22.8(H) 4.0 - 9.5 x10(3)/mc L [facility] Red Blood Cell 3.10(L) 4.00 - 5.21 x10(6)/mc L [facility] Hemoglobin 9.5(L) 11.7 - 15.5 gm/dL [facility] Hematocrit 26.2(L) 35.7 - 45.8 % [facility] Mean Cell Volume 84.5 82.6 - 94.4 fL [facility] Mean Cell Hemoglobin 30.6 27.1 - 32.0 pg [facility] Mean Cell Hemoglobin Concentration 36.3(H) 31.7 - 35.0 gm/dL [facility] Platelet 248 145 - 357 x10(3)/mc L [facility] RDW Standard Deviation 36.1(L) 37.0 - 46.0 fL [facility] RDW coefficient of variation 11.9 11.5 - 14.1 % [facility] Mean Platelet Volume 11.9 7.6 - 12.9 fL [facility] NRBC% auto 0.0 % [facility] NRBC Absolute 0.000 0.000 - 0.000 x10(3)/mc L [facility] Blood specimen (specimen) 08/01/2017 5:10 PM EDT 08/01/2017 5:17 PM EDT Narrative Resulting Agency Comment Spec In Lab Catrachita Agustin MD HEMATOLOGY ORDERABLE S Performing Organization Address City/[facility]/ZIP Co de Phone Number [facility] [place] [address] * ABORH Recheck Status (08/01/2017 10:25 AM EDT) ABORH Type Recheck Completed [facility] Blood specimen (specimen) 08/01/2017 10:25 AM EDT 08/01/2017 10:25 AM EDT Narrative Resulting Agency Comment Spec In Lab Catrachita Agustin MD BLOOD BANK LAB ORDER GEORGE Performing Organization Address City/[facility]/ZIP Co de Phone Number [facility] [place] [address] * Antibody screen (08/01/2017 10:25 AM EDT) Ab Screen Interp Negative [facility] Expires at 2359 on: 08/04/2017 [facility] Blood specimen (specimen) 08/01/2017 10:25 AM EDT 08/01/2017 10:25 AM EDT Narrative Resulting Agency Comment Spec In Lab Catrachita Agustin MD BLOOD BANK LAB ORDER GEORGE Performing Organization Address City/[facility]/ZIP Co de Phone Number [facility] [place] [address] * ABO/Rh Typing (08/01/2017 10:25 AM EDT) ABORH Type B Pos [facility] Blood specimen (specimen) 08/01/2017 10:25 AM EDT 08/01/2017 10:25 AM EDT Narrative Resulting Agency Comment Spec In Lab Catrachita Agustin MD BLOOD BANK LAB ORDER GEORGE [facility] [place] [address] * (ABNORMAL) Hemogram (08/01/2017 10:10 AM EDT) White Blood Cell 28.1(H) 4.0 - 9.5 x10(3)/mc L [facility] Red Blood Cell 3.66(L) 4.00 - 5.21 x10(6)/mc L [facility] Hemoglobin 11.1(L) 11.7 - 15.5 gm/dL [facility] Hematocrit 32.2(L) 35.7 - 45.8 % [facility] Mean Cell Volume 88.0 82.6 - 94.4 fL [facility] Mean Cell Hemoglobin 30.3 27.1 - 32.0 pg [facility] Mean Cell Hemoglobin Concentration 34.5 31.7 - 35.0 gm/dL [facility] Platelet 302 145 - 357 x10(3)/mc L [facility] RDW Standard Deviation 38.5 37.0 - 46.0 [facility] RDW coefficient of variation 11.9 11.5 - 14.1 % [facility] Mean Platelet Volume 11.1 7.6 - 12.9 fL [facility] NRBC% auto 0.0 % [facility] NRBC Absolute 0.000 0.000 - 0.000 x10(3)/mc L [facility] Blood specimen (specimen) 08/01/2017 10:10 AM EDT 08/01/2017 10:22 AM EDT Narrative Resulting Agency Comment Spec In Lab Catrachita Agustin MD HEMATOLOGY ORDERABLE S [facility] [place] [address] * Fibrinogen (08/01/2017 10:10 AM EDT) Fibrinogen 351 180 - 510 mg/dL [facility] Comment: A fibrinogen level >100 mg/dL is adequate for hemostasis in most patients without underlying bleeding disorders. Blood specimen (specimen) 08/01/2017 10:10 AM EDT 08/01/2017 10:22 AM EDT Narrative Resulting Agency Comment Spec In Lab Catrachita Agustin MD HEMATOLOGY ORDERABLE S Performing Organization Address [facility] Co de Phone Number [facility] [place] [address] * APTT (08/01/2017 10:10 AM EDT) Partial Thromboplastin Time 27 25 - 35 sec [facility] Comment: The recommended therapeutic range for full dose, unfractionated heparin at [facility] is 80 ? 114 seconds. The use of the anti-Xa (heparin) level rather than the PTT is recommended for monitoring anticoagulation intensity in critically ill patients receiving unfractionated heparin by continuous IV infusion. Blood specimen (specimen) 08/01/2017 10:10 AM EDT 08/01/2017 10:22 AM EDT Narrative Resulting Agency Comment Spec In Lab Catrachita Agustin MD HEMATOLOGY ORDERABLE S Performing Organization Address [facility] de Phone Number [facility] [place] [address] * Prothrombin Time (08/01/2017 10:10 AM EDT) Prothrombin Time 14.5 12.0 - 15.0 sec [facility] Comment: An INR <2.0 indicates adequate [...] International Normalization Ratio 1.1 0.9 - 1.1 [facility] Blood specimen (specimen) 08/01/2017 10:10 AM EDT 08/01/2017 10:22 AM EDT Narrative Resulting Agency Comment Spec In Lab Catrachita Agustin MD HEMATOLOGY ORDERABLE S Performing Organization Address [facility] [place] [address] * Specimen to Pathology (NON-OR) (08/01/2017 6:53 AM EDT) AP Specimen 08/01/2017 6:53 AM EDT 08/01/2017 6:53 AM EDT Narrative [facility] - 08/01/2017 6:53 AM EDT Specimen requisition ordered. ??Separate Pathology report to follow Dot Toney MD PATHOLOGY/CYTOLOGY O RDERAARJUN Performing Organization Address [facility] [place] [address] * Surgical Pathology Report (08/01/2017 6:15 AM EDT) Final Diagnosis [id number] ? Location: ; BP20; A The signing pathologist has (i) [...] parenchyma. (R5) ??jerel 08/12/2017 8:16 AM EDT [facility] TISSUE SPECIMEN FROM PLACENTA / Unknown 08/01/2017 6:15 AM EDT 08/01/2017 6:15 AM EDT Lisbet Hodgson DO PATHOLOGY/CYTOLOGY ORDERABLES [facility] [place] [address] * THC (Marijuana), Urine Confirmation (07/30/2017 2:20 [...] developed and its performance characteristics ?determined by [facility] in a manner consistent with CLIA ?requirements. This test has not been cleared or approved by ?the U.S. Food and Drug Administration. ?Test Performed by: ?[facility] ?[address] LABORATORY Urine specimen (specimen) 07/30/2017 2:20 PM EDT 08/02/2017 8:39 AM EDT Narrative Resulting Agency Comment Spec In Lab Maritza Mcgowan MD LAB SEND OUT ORDERAB LES [facility] [place] [address] * (ABNORMAL) ELIZABETH Screen w/ Confirmation (07/30/2017 2:20 PM EDT) Barbiturates Screen, Urine None Detected None Detected [facility] Comment: The barbiturate screen detects barbiturates [...] Benzodiazepines Screen, Urine None Detected None Detected [facility] Comment: The benzodiazepines screen detects benzodiazepines [...] Cocaine Screen, Urine None Detected None Detected [facility] Comment: The cocaine metabolites screen detects benzoylecgonine (Cocaine Metabolite) at concentrations >150 ng/mL. A ? Presumptive Positive? result indicates that the screening result was positive but has not yet been confirmed by a highly-specific method. As with any screen, occasional false positive results from cross-reacting substances may occur. Not for Medico-Legal Purposes. Methadone Metabolites Screen, Urine None Detected None Detected [facility] Comment: The methadone metabolite screen detects EDDP (major methadone metabolite) at concentrations >100 ng/mL. A ? Presumptive Positive? result indicates that the screening result was positive but has not yet been confirmed by a highly-specific method. As with any screen, occasional false positive results from cross-reacting substances may occur. Not for Medico-Legal Purposes. Opiate Screen, Urine None Detected None Detected [facility] Comment: The opiates screen detects opiates [...] Cannabinoid Screen, Urine Presumptive Pos(A) None Detected [facility] Comment: The marijuana metabolites screen detects the THC metabolite (46-vug-3-carboxy-delta 9-THC) at concentrations >20 ng/mL. A ? Presumptive Positive? result indicates that the screening result was positive but has not yet been confirmed by a highly-specific method. As with any screen, occasional false positive results from cross-reacting substances may occur. Not for Medico-Legal Purposes. Oxycodone Screen, Urine None Detected None Detected [facility] Comment: The oxycodone screen detects oxycodone and oxymorphone at concentrations >100 ng/mL. A ? Presumptive Positive? result indicates that the screening result was positive but has not yet been confirmed by a highly-specific method. As with any screen, occasional false positive results from cross-reacting substances may occur. Not for Medico-Legal Purposes. Buprenorphine Screen, Urine None Detected None Detected [facility] Comment: The buprenorphine screen detects buprenorphine at concentrations >5 ng/mL. A ? Presumptive Positive? result indicates that the screening result was positive but has not yet been confirmed by a highly-specific method. As with any screen, occasional false positive results from cross-reacting substances may occur. Not for Medico-Legal Purposes. Fentanyl Screen, Urine None Detected None Detected [facility] Comment: The fentanyl screen detects fentanyl at concentrations >2 ng/mL. A ? Presumptive Positive? result indicates that the screening result was positive but has not yet been confirmed by a highly-specific method. As with any screen, occasional false positive results from cross-reacting substances may occur. Not for Medico-Legal Purposes. Tricyclics Screen, Urine None Detected None Detected [facility] Comment: The tricyclics screen detects tricyclic [...] Ethanol Screen, Urine None Detected None Detected [facility] Comment:This urine ethanol a ssay detects ethanol at concentrations >/= 100 mg/L. Amphetamines Screen, Urine None Detected None Detected [facility] Comment: The amphetamine screen detects d-amphetamine and d-methamphetamine at concentrations >300 ng/mL. A ? Presumptive Positive? result indicates that the screening result was positive but has not yet been confirmed by a highly-specific method. As with any screen, occasional false positive results from cross-reacting substances may occur. Not for Medico-Legal Purposes. Adulterants Screen, Urine None Detected None Detected [facility] Comment: No adulteration or dilution of this urine sample was detected. All urine samples submitted for urine drugs of abuse analysis are tested for creatinine concentration, pH, and for the presence of oxidants, nitrites, and chromate. Urine specimen (specimen) 07/30/2017 2:20 PM EDT 07/30/2017 2:29 PM EDT Narrative Resulting Agency Comment Spec In Lab Catrachita Agustin MD CHEMISTRY ORDERABLES Performing Organization Address [facility] Co de Phone Number [facility] [place] [address] * ELIZABETH Request (07/30/2017 2:20 PM EDT) ELIZABETH Conf Requested Yes [facility] ELIZABETH Requested See Comment [facility] Comment:Refer to the ELIZABETH Scr een w/ Confirmation order for results. Urine specimen (specimen) 07/30/2017 2:20 PM EDT 07/30/2017 2:29 PM EDT Narrative Resulting Agency Comment Spec In Lab Catrachita Agustin MD URINE ORDERABLES Performing Organization Address [facility] Co de Phone Number [facility] [place] [address] * (ABNORMAL) Differential, Automated (07/30/2017 1:25 PM EDT) Neutrophil % 75.1 % [facility] Neutrophil Absolute 15.87(H) 1.70 - 6.10 x10(3)/mc L [facility] Lymph % 17.4 % [facility] Lymphocytes Abs 3.7(H) 0.9 - 3.2 x10(3)/mc L [facility] Monocyte % 6.0 % [facility] Monocyte Abs 1.3(H) 0.3 - 0.9 x10(3)/ L [facility] Eos % 0.0 % [facility] Eosinophils Abs 0.0 0.0 - 0.4 x10(3)/ L [facility] Basophil % 0.2 % [facility] Baso Absolute 0.0 0.0 - 0.1 x10(3)/ L [facility] Immature Gran % 1.30 % [facility] Comment: Immature granulocytes(IG's)percentage and absolute count will include metamyelocytes, myelocytes, and promyelocytes. Blood smears from CBCs yielding IG's will be scanned manually for concordance. If this scan disagrees with the automated IG or if promyelocytes are noted, a manual differential will be performed. Immature Gran Absolute 0.27(H) 0.00 - 0.04 x10(3)/ L [facility] Blood specimen (specimen) 07/30/2017 1:25 PM EDT 07/30/2017 1:36 PM EDT Narrative Resulting Agency Comment Spec In Lab Catrachita Agustin MD HEMATOLOGY ORDERABLE S [facility] [place] [address] * (ABNORMAL) Hemogram (07/30/2017 1:25 PM EDT) White Blood Cell 21.1(H) 4.0 - 9.5 x10(3)/ L [facility] Red Blood Cell 3.90(L) 4.00 - 5.21 x10(6)/ L [facility] Hemoglobin 12.1 11.7 - 15.5 gm/dL [facility]ematocrit 33.8(L) 35.7 - 45.8 % [facility] Mean Cell Volume 86.7 82.6 - 94.4 fL [facility] Mean Cell Hemoglobin 31.0 27.1 - 32.0 pg [facility] Mean Cell Hemoglobin Concentration 35.8(H) 31.7 - 35.0 gm/dL [facility] Platelet 310 145 - 357 x10(3)/mc L [facility] RDW Standard Deviation 38.0 37.0 - 46.0 fL [facility] RDW coefficient of variation 12.1 11.5 - 14.1 % [facility] Mean Platelet Volume 11.8 7.6 - 12.9 fL [facility] NRBC% auto 0.0 % [facility] NRBC Absolute 0.000 0.000 - 0.000 x10(3)/mc L [facility] Blood specimen (specimen) 07/30/2017 1:25 PM EDT 07/30/2017 1:36 PM EDT Narrative Resulting Agency Comment Spec In Lab Catrachita Agustin MD HEMATOLOGY ORDERABLE S [facility] [place] [address] documented in this encounter Visit Diagnoses Diagnosis IUGR (intrauterine growth restriction) affecting care of mother- Primary Poor growth, affecting management of mother, unspecified as to episode of care IUGR (intrauterine growth restriction) affecting care of mother, third trimester, fetus 1 Supervision of normal first teen in third trimester Attention deficit disorder (ADD) without hyperactivity Marijuana use Cannabis abuse, unspecified Depression Depressive disorder, not elsewhere classified Hypothyroidism Unspecified hypothyroidism History of tobacco use Personal history of tobacco use, presenting hazards to health Supervision of normal first teen in third trimester Positive GBS test Maternal varicella, non-immune Supervision of other high-risk documented in this encounter Administered Medications Inactive Administered Medications - up to 3 most recent administrations Medication Order MAR Action Action Date Dose Rate Site acetaminophen (TYLENOL) tablet 1,000 mg 1,000 mg, Oral, EVERY 6 HOURS PRN, Starting on 08/01/17 at 0655, [...] Given 08/02/2017 11:51 AM EDT 650 mg fentaNYL 2 mcg/mL with BUpivacaine 0.125% (1.25 mg/mL) (1/8%) in NS(PF) 2 mcg/mL- 0.125 % neuraxial ANGELA BISHOP: cabinet override fentaNYL 2 mcg/mL, BUpivacaine (MARCAINE) 0.125% (1.25 mg/mL)(1/8%) in sodium chloride 0.9% 250 mL epidural Epidural, Patient Controlled Epidural Analgesia (PCEA): 5 mL, PCEA Frequency: Every 20 minutes, Maximum rate for continuous infusion 14 mL per hour Maximum total epidural rate (continuous and PCEA bolus) is 25 mL per hour New Bag 07/31/2017 9:29 PM EDT 10 mL/h r 10 mL/hr fentaNYL 50mcg/mL injection 100 mcg, Intravenous, ONCE, 1 dose, On Tue07/31/17 at 1945, Routine Given 07/31/2017 7:42 PM EDT 100 mcg glycerin-witch kenny (TUCKS) 12.5-50 % pads Topical (Top), 4 TIMES DAILY PRN, Irritation, perineal pain, Starting on Tue08/01/17 at 0655, Until Tue08/03/17 at 192, Recovery (Recovery-Hospital Unit) ibuprofen (ADVIL;MOTRIN) tablet 600 [...] hours., Recovery (Recovery-Hospital Unit), Routine lactated Ringers 1,000 mL IV bolus Intravenous, ONCE, 1 dose, On Tue08/01/17 at 1015 Given 08/01/2017 9:39 AM EDT lactated Ringers infusion 200 mL/hr, Intravenous, CONTINUOUS, Starting on Tue08/01/17 at 1015, Until Tue08/03/17 at 1926 levothyroxine (SYNTHROID) tablet 50 mcg 50 mcg, Oral, DAILY, First dose on Tue07/30/17 at 1600, Until Discontinued, Routine Given 08/03/2017 7:08 AM EDT 50 mcg Given 08/02/2017 6:53 AM EDT 50 mcg Given 08/01/2017 6:50 AM EDT 50 mcg methylergonovine (METHERGINE) 0.2 mg/mL (1 mL) injection 1 dose, Starting on Tue08/01/17 at 0935, Until Tue08/01/17 at 0938, Apurva Pascal: cabinet override methylergonovine (METHERGINE) injection 0.2 mg 0.2 mg, Intramuscular, ONCE, 1 dose, On Tue08/01/17 at 1100, Routine Given 08/01/2017 9:38 AM EDT 0.2 mg miSOPROStol tablet 25 mcg 25 mcg, Oral, EVERY 2 HOURS, 12 doses, First dose on 07/30/17 at 1445, Last dose on Tue07/31/17 at 1245, Until active labor., Routine Given 07/31/2017 1:00 PM EDT 25 mcg Given 07/31/2017 11:09 AM EDT 25 mcg Given 07/31/2017 8:30 AM EDT 25 mcg naloxone (NARCAN) injection 0.2 mg 0.2 mg, Intravenous, EVERY 1 MIN PRN, Starting on Tue07/31/17 at 2044, Until Tue08/03/17 at 1926, Opioid Reversal, If respiratory rate less than [...] Discontinued, Verify nicotine 14 mg/24 hr patch. ondansetron (ZOFRAN) injection 4 mg 4 mg, Intravenous, ONCE, 1 dose, On Tue08/01/17 at 1145, STAT Given 08/01/2017 11:34 AM EDT 4 mg oxytocin (PITOCIN) 30 units in sodium chloride 0.9% 500 mL infusion 1-40 bertrand-units/min (1-40 mL/hr), Intravenous, CONTINUOUS, Starting on Tue07/31/17 at 1930, Until Tue08/01/17 at 0653, Piggyback into Lactated Ringers; Start at 2 milliunits/minute and increase by 2 milliunits/minutes every 30 minutes to achieve contractions that are every 2-3 minutes, lasting 60-90 seconds with 1 minute resting tone between contractions palpating strong. Oxytocin may not be initiated until: - 1 hour after Cervidil is removed - 4 hours after last minute misoprostol dose is given, Routine Rate/Dose Change 07/31/2017 8:00 PM EDT 4 bertrand-units/min 4 mL/hr New Bag 07/31/2017 7:25 PM EDT 2 bertrand-units/min 2 mL/h r oxytocin (PITOCIN) 30 units in sodium chloride 0.9% 500 mL infusion 30 Units (500 mL), Intravenous, Administer over 1 Hours, ONCE, 1 dose, On 08/01/17 at 0715, ., Routine Rate/Dose Change 08/01/2017 6:10 AM EDT 30 Units penicillin G potassium 3 million units in dextrose 5% 50 mL 3 Million Units, Intravenous, EVERY 4 HOURS, First dose on 07/30/17 at 1845, Until Discontinued, Until delivery for GBS prophylaxis, Indication for (Active or Suspected): Prophylaxis New Bag 08/01/2017 4:34 AM EDT 3 Million Units New Bag 08/01/2017 12:52 AM EDT 3 Million Units New Bag 07/31/2017 8:30 PM EDT 3 Million Units penicillin G potassium 5 million unit vial attach to sodium chloride 0.9% 100 mL Mini-Bag Plus 5 Million Units, Intravenous, ONCE, 1 dose, On 07/30/17 at 1445, Administer over 60 Minutes, Attach to 100 mL sodium chloride 0.9% Mini-Bag Plus. Warning Vesicant/Irritant Medication , Indication for (Active or Suspected): Prophylaxis New Bag 07/30/2017 8:28 PM EDT 5 Million Units 110 mL/hr sodium chloride 0.9 % flush 1-20 mL 1-20 mL, Intravenous, EVERY 1 MIN PRN, Starting on 07/30/17 at 1419, Until Tue08/01/17 at 0653, flush, Flush pertains to all indwelling lines. Flush per protocol found in the job aid using the link provided on this medication record., Routine Given 07/31/2017 7:42 PM EDT 5 mLs sodium chloride 0.9 % flush 5 mL 5 mL, Intravenous, 2 TIMES DAILY, First dose on 07/30/17 at 1445, Until Discontinued, Routine Given 07/31/2017 8:30 AM EDT 5 mLs documented in this encounter Active and Recently Administered Medications Times are shown in EDT. Scheduled Medication Order 08/01/2017 08/02/2017 08/03/2017 lactated Ringers 1,000 mL IV bolus (COMPLETED) Intravenous, ONCE, 1 dose, On Tue08/01/17 at 1015 0939 (Given - Provider: Noris Goodrich RN) levothyroxine (SYNTHROID) tablet 50 mcg 50 mcg, Oral, DAILY, First dose on 07/30/17 at 1600, Until Discontinued, Routine 0650 (Given [...] 14 mg, Transdermal, DAILY, First dose on Tue07/30/17 at 1445, Until Discontinued, Routine 0910 (Given - Provider: Noris Goodrich, DALIA) 1136 (Given - Provider: Arianne Blandon, DALIA - Comment: patient had been asleep) 0900 (Not Given - Provider: Kasia Parra RN - Reason: Patient/family refused - Comment: prefers to go out and smoke) nicotine (NICODERM CQ) 14 mg/24 hr patch Patch Removal(Linked Group 1) Transdermal, DAILY, First dose on 07/30/17 at 1445, Until Discontinued, Remove nicotine 14 mg/24 hr patch 0900 (Patch Removed - Provider: Noris Goodrich RN) 1133 (Patch Removed - Provider: Arianne Blandon, DALIA)1634 (Patch Removed - Provider: Arianne Blandon, DALIA [...] and location) verified - Provider: Noris Goodrich RN)2135 (Patch (dose and location) verified - Provider: Angela Bishop RN) 1133 (Patch (dose and location) verified - Provider: Arianne Blandon RN - Comment: patch on L shoulder removed, new patch on right shoulder added)2139 (Patch Not Verified (add comment) - Provider: Angela Bishop, DALIA - Comment: patch was removed earlier) 0900 (Not Given - Provider: Kasia Parra RN - Reason: Patient/family refused) ondansetron (ZOFRAN) injection [...] 0610 (Rate/Dose Change - Provider: Angela Bishop, DALIA - Comment: previous RN used same bag [...] prophylaxis, Indication for (Active or Suspected): Prophylaxis 0052 (New Bag - Provider: Angela Bishop, RN)0434 [...] Routine 0741 (See Alternative - Provider: Noris Goodrich, RN)1345 (See Alternative - Provider: Radha Eaton RN) 1151 (See Alternative - Provider: Arianne Blandon RN)2137 (See Alternative - Provider: Angela Bishop, RN) 113 (See Alternative - Provider: Kasia Parra, DALIA) acetaminophen (TYLENOL) tablet 650 mg(Linked Group 3) 650 mg, Oral, EVERY 4 HOURS PRN, Starting on Tue08/01/17 at 0655, Until Tue08/03/17 at 1926, Pain, - Mild pain (pain scale 1-3) - Maximum dose of acetaminophen is 4000 mg from all sources in 24 hours., Recovery (Recovery-Hospital Unit), Routine 0741 (Given - Provider: Noris Goodrich RN)1345 (Given - Provider: Radha Eaton, DALIA) 1151 (Given - Provider: Arianne Blandon, DALIA)2137 (Given - Provider: Angela Bishop, RN) 113 (Given - Provider: Kasia Parra, DALIA) [...] Goodrich RN)2250 (Given - Provider: Angela Bishop, RN) 1151 (Given - Provider: Arianne Blandon, RN)2137 (Given - Provider: Angela Bishop, RN) 1131 (Given - Provider: Kasia Parra, DALIA) ibuprofen (ADVIL;MOTRIN) tablet 800 mg(Linked Group 4) 800 mg, Oral, EVERY 8 HOURS PRN, Starting on 08/01/17 at 0655, Until Tue08/03/17 at 1926, Pain, - Do not give if receiving ketorolac. - Severe pain (pain scale 7-10). - Maximum dose of 3,200 mg from all sources in 24 hours., Recovery (Recovery-Hospital Unit), Routine 164 (See Alternative - Provider: Noris Goodrich RN)2250 (See Alternative - Provider: Angela Bishop, DALIA) 115 (See Alternative - Provider: Arianne Blandon, DALIA)2137 (See Alternative - Provider: Angela Bishop, DALIA) 1131 (See Alternative - Provider: Kasia Parra RN) naloxone (NARCAN) injection 0.2 mg 0.2 mg, Intravenous, EVERY 1 MIN PRN, Starting on Tue07/31/17 at 2044, Until Tue08/03/17 at 1926, Opioid Reversal, If respiratory rate less than [...] Routine documented in this encounter Care Teams Director Of Scout Work Relationship Specialty Start Date End Date Unknown None PCP - General 08/02/17 documented as of this encounter
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
== END 2024-07-20 22:16 | disposition home or self-care (01) ==
PROVIDERS: Emergency Provider Registered Nurse Emergency; PCP Family Medicine
DX: S61.217A Laceration without foreign body of left little finger without damage to nail, initial encounter (principal); W26.0XXA Contact with knife, initial encounter; Y93.89 Activity, other specified; Y92.018 Other place in single-family (private) house as the place of occurrence of the external cause; F17.210 Nicotine dependence, cigarettes, uncomplicated
CPT/HCPCS: 12001; 99283

== ENCOUNTER 2024-09-07 17:06 | Emergency (ER) | payer MEDICAID, SELFPAY ==
[2024-09-07 17:07] VITALS: BP 100/86; PULSE 94; RESP 18; TEMP 36.6; O2SAT 99
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
--- NOTE | 2024-09-10 10:39 | NUR.NOTE ---
Ce, triage nurse at [facility] looking for notes on Stephanie's visit on 09/07/24. Giorgio Salinas's note shows that it was cancelled. Information printed out and given to Giorgio for amendment.
--- NOTE | 2024-09-10 10:43 | NUR.NOTE ---
Ce, triage nurse from [facility] called looking for provider's visit note on 09/07/24. After looking at nurse's notes it was determined that patient arrived at 1707 and left 1840 without being seen by provider because she had to chart picker her child. Information relayed to Ce.
== END 2024-09-07 18:15 ==
PROVIDERS: PCP Family Medicine
DX: Z53.21 Procedure and treatment not carried out due to patient leaving prior to being seen by health care provider (principal)

== ENCOUNTER 2024-10-20 11:16 | Emergency (ER) | payer MEDICAID, SELFPAY ==
[2024-10-20 11:24] VITALS: BP 135/72; PULSE 69; RESP 16; TEMP 36.7; O2SAT 99
[2024-10-20 11:32] VITALS: RESP 16
[2024-10-20 11:35] VITALS: BP 135/72; PULSE 69; RESP 16; TEMP 36.7; O2SAT 99
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
--- NOTE | 2024-10-20 11:48 | NUR.NOTE ---
Mariza from [facility] called in regards to pt's methadone dosing. pt is fine to miss today's dose and not receive a redose d/t vomiting. Pt is recommended to proceed with tomorrow's dose as prescribed. Dr. Damon made aware, primary nurse made aware.
[2024-10-20 11:56] LABS: Bilirubin Negative (Negative); Blood Negative (Negative); Clarity Clear (Clear); Glucose Negative (Negative); Ketones Negative (Negative); Leukocyte Esterase Negative (Negative); Nitrite Negative (Negative); Urobilinogen 0.2 mg/dL (Up to 0.2)
[2024-10-20 12:24] VITALS: BP 148/82; PULSE 84; RESP 16; O2SAT 97
== END 2024-10-20 12:25 | disposition home or self-care (01) ==
PROVIDERS: Emergency Provider Emergency Medicine; PCP Family Medicine
DX: R11.11 Vomiting without nausea (principal); F19.90 Other psychoactive substance use, unspecified, uncomplicated; F17.290 Nicotine dependence, other tobacco product, uncomplicated; Z32.01 Encounter for pregnancy test, result positive
CPT/HCPCS: 81025; 99283; 81003

== ENCOUNTER 2024-11-26 02:41 | Outpatient (CLI) | payer MEDICAID, SELFPAY ==
[2024-11-26 15:37] LABS: Panorama Kit Sent via Fed Ex
[2024-11-26 15:54] LABS: Abs Immature Grans 0.04 10^3/uL (0.0-0.06); Absolute Basophil Count 0.05 10^3/uL (0.0-0.2); Absolute Eosinophil Count 0.07 10^3/uL (0.0-0.7); Absolute Lymphocyte Count 2.76 10^3/uL (1.2-3.4); Absolute Monocyte Count 0.41 10^3/uL (0.1-0.8); Absolute Neutrophil Count 6.41 10^3/uL (1.2-6.7); Basophils % 0.5 %; Eosinophils % 0.7 %; HCT 36.3 % (36.0-46.0); HGB 12.7 g/dL (11.2-15.7); Immature Grans % 0.4 %; Lymphocytes % 28.3 %; MCH 29.8 pg (27.0-33.0); MCV 85 fL (80-95); MPV 10.2 fL (8.0-11.0); Monocytes % 4.2 %; Neutrophils % 65.9 %; Platelet Count 263 10^3/uL (130-400); RBC 4.26 10^6/uL (3.93-5.22); RDW 11.9 % (11.7-14.6); RDW-SD 36.9 fL; WBC 9.74 10^3/uL (4.4-10.8)
[2024-11-26 21:41] LABS: Lab Add On Test DONE
[2024-11-26 22:03] LABS: TSH (W/Ref FT4) 4.63 uIU/mL (0.36-3.74)
[2024-11-26 22:22] LABS: FREE T4 0.98 ng/dL (0.76-1.46)
[2024-11-27 20:18] LABS: Hepatitis B Surface Ag Negative (Negative)
[2024-11-27 20:45] LABS: Hepatitis C Ab w Rflx HCV PCR Negative (Negative)
[2024-11-27 20:50] LABS: HIV-1/2 Ag & Ab Screen Negative (Negative)
[2024-11-28 09:55] LABS: Varicella IgG Antibody Positive (See Note)
[2024-11-28 10:05] LABS: Rubella IgG Ab (UVM) Positive (See Note)
[2024-11-29 16:00] LABS: Syphilis IgG w/Reflex Nonreactive (Nonreactive)
== END 2024-11-26 02:42 | disposition home or self-care (01) ==
LOC: LBO 02:43
PROVIDERS: PCP Family Medicine; Visit Provider Advanced Practice Midwife
DX: Z34.91 Encounter for supervision of normal pregnancy, unspecified, first trimester (principal); O99.281 Endocrine, nutritional and metabolic diseases complicating pregnancy, first trimester; E03.9 Hypothyroidism, unspecified
CPT/HCPCS: 36415; 86787; 86803; 86850; 86900; 86901; 87340; 87389; 84439; 84443; 85025; 86762; 86780

== ENCOUNTER 2024-11-26 15:22 | Outpatient (REF) | payer MEDICAID, SELFPAY ==
--- NOTE | 2024-11-26 15:00 | PAPFT_PTH ---
PATIENT: Stephanie Nix LOC: [facility] U#:[id number] AGE/SX: 24/F ROOM: RE11/26/[address]: Linette Meyers : 2000 BED: DIS: 11/26/2024 SPEC #: [id number] RECD: 11/26/24 17:32 STATUS: DELROY REQ #: [id number] MIKEL: 11/26/24 15:[address]: Linette Meyers DEPT: [facility] Cytology RECD BY: Audrey Ahumada ENTERED: 11/26/24 17:32 SP TYPE: PAPFT OTHR DR: Catrachita Singleton Tissues: 1 - CX/ENDOCX FOR PAP SMEARS Procedures: PAP THIN PREP/[facility] Screening Comments: [id number] (CHLAMYDIA/GC)
[2024-11-26 18:59] LABS: *AMPHETAMINES SCREEN URINE Positive (Negative); *BARBITURATES SCREEN URINE Negative (Negative); *BENZODIAZEPINES SCREEN URINE Negative (Negative); Cannabinoids THC Positive (Negative); Cocaine Screen,Urine Negative (Negative); METHADONE URINE SCREEN Positive (Negative); OPIATES URINE SCREEN Negative (Negative)
[2024-11-26 19:05] LABS: Tricyclic Antidepressants Negative (Negative)
[2024-11-27 12:53] LABS: Chlamydia Result Negative (Negative); GC Result Negative (Negative)
[2024-11-29 11:31] LABS: Fentanyl Scr w/Rfx Confirm Negative ng/mL (<1)
[2024-12-01 12:11] LABS: Buprenorphine Negative ng/mL (Cutoff: 5.0); Norbuprenorphine Negative ng/mL (Cutoff: 2.5)
== END 2024-11-26 15:23 | disposition home or self-care (01) ==
LOC: LBN 15:22
PROVIDERS: PCP Family Medicine; Visit Provider Advanced Practice Midwife
DX: Z34.91 Encounter for supervision of normal pregnancy, unspecified, first trimester (principal)
CPT/HCPCS: 80307; 80348; 87491; 87591; 88142; 87086

== ENCOUNTER 2024-12-28 08:05 | Emergency (ER) | payer MEDICAID, SELFPAY ==
[2024-12-28] VITALS (11 sets, daily range): BP systolic 134–157; BP diastolic 78–104; PULSE 67–78; RESP 14–20; TEMP 36.9; O2SAT 98–100
--- NOTE | 2024-12-28 08:00 | RT.EKG_ITS ---
APPROVED REPORT Exam: Resting ECG Reason for Exam: r/o QTc prolongation Patient Location: E HR:71 bpm ECG Measurements Heart Rate 71 AXIS MO 149 P 87 QRSd 72 QRS 71 QT 432 T 69 QTc 470 Conclusion Sinus rhythm 71 normal axis no stemi
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
[2024-12-28 08:53] LABS: Abs Immature Grans 0.02 10^3/uL (0.0-0.06); Absolute Basophil Count 0.04 10^3/uL (0.0-0.2); Absolute Eosinophil Count 0.37 10^3/uL (0.0-0.7); Absolute Monocyte Count 0.45 10^3/uL (0.1-0.8); Absolute Neutrophil Count 6.32 10^3/uL (1.2-6.7); Basophils % 0.5 %; Eosinophils % 4.9 %; HCT 37.3 % (36.0-46.0); HGB 12.9 g/dL (11.2-15.7); Immature Grans % 0.3 %; Lymphocytes % 5.3 %; MCHC 34.6 % (32.0-36.0); MCV 87 fL (80-95); MPV 10.3 fL (8.0-11.0); Monocytes % 5.9 %; Neutrophils % 83.1 %; Platelet Count 188 10^3/uL (130-400); RDW 12.2 % (11.7-14.6); RDW-SD 38.9 fL
[2024-12-28 08:55] LABS: Bilirubin Negative (Negative); Blood Negative (Negative); Clarity Clear (Clear); Glucose Negative (Negative); Ketones 15 mg/dL (Negative); Leukocyte Esterase Negative (Negative); Nitrite Negative (Negative); Specific Gravity >= 1.030 (1.005-1.025); Urobilinogen 0.2 mg/dL (Up to 0.2)
[2024-12-28] MEDS: Ondansetron 4 MG/2 ML VIAL IVP (08:56)
[2024-12-28] MEDS: Normal Saline Flush 10 ML SYR IVP (08:57)
[2024-12-28 09:01] LABS: Bacteria Rare HPF (Negative); C & S Indicated? No; Casts Negative LPF (Negative); Crystals Negative HPF (Negative); Epithelial Cells Many HPF (Negative); Mucus Moderate (Negative); RBC 0-2 HPF (0-2); WBC 0-2 HPF (0-5)
[2024-12-28 09:08] LABS: ALT 24 U/L (14-59); AST 15 U/L (15-37); Albumin 3.5 g/dL (3.4-5.0); Alkaline Phosphatase 67 U/L (46-116); Anion Gap 8.8 mmol/L (3-11); BUN 2 mg/dL (7-18); Bilirubin, Total 0.44 mg/dL (0.2-1.0); CO2 30.2 mmol/L (21.0-32.0); CREATININE 0.7 mg/dL (0.55-1.02); Calcium 8.4 mg/dL (8.5-10.1); Chloride 100 mmol/L (98-107); Estimated GFR 122.25 (mL/min/1.73m2); Glucose 110 mg/dL (74-106); Lipase 18 U/L (<78); Magnesium 1.7 mg/dL (1.8-2.4); Sodium 139 mmol/L (136-145); Total Protein 7.6 g/dL (6.4-8.2)
[2024-12-28] MEDS: Lactated Ringers 1,000 ML 1000 ML IV (09:23)
[2024-12-28] MEDS: Potassium Bicarbonate/Cit AC 25 MEQ TABLET.EFF PO (09:23)
[2024-12-28 10:41] LABS: Bilirubin Negative (Negative); Blood Negative (Negative); Clarity Sl Cloudy (Clear); Glucose Negative (Negative); Ketones 40 mg/dL (Negative); Leukocyte Esterase Negative (Negative); Nitrite Negative (Negative); Specific Gravity >= 1.030 (1.005-1.025)
[2024-12-28] MEDS: Ondansetron O.D.T. 4 MG TABEF, 3 TABS/BTL PO (10:58)
== END 2024-12-28 10:59 | disposition home or self-care (01) ==
PROVIDERS: Emergency Provider Nurse Practitioner Family; PCP Family Medicine
DX: J10.1 Influenza due to other identified influenza virus with other respiratory manifestations (principal); E87.6 Hypokalemia; E86.0 Dehydration; Z34.91 Encounter for supervision of normal pregnancy, unspecified, first trimester; R11.2 Nausea with vomiting, unspecified
CPT/HCPCS: 36415; 80053; 83690; 93005; 96361; 96374; 99284; 81003; 81015; 83735; 85025; 93010; J2405

== ENCOUNTER 2025-01-15 04:31 | Outpatient (CLI) | payer MEDICAID, SELFPAY ==
[2025-01-15 16:03] LABS: TSH (W/Ref FT4) 6.55 uIU/mL (0.36-3.74)
[2025-01-15 16:22] LABS: FREE T4 0.94 ng/dL (0.76-1.46)
== END 2025-01-15 04:32 | disposition home or self-care (01) ==
LOC: LBO 04:31
PROVIDERS: PCP Family Medicine; Visit Provider Advanced Practice Midwife
DX: O99.281 Endocrine, nutritional and metabolic diseases complicating pregnancy, first trimester (principal); E03.9 Hypothyroidism, unspecified
CPT/HCPCS: 36415; 84439; 84443

== ENCOUNTER 2025-01-31 01:43 | Outpatient (CLI) | payer MEDICAID, SELFPAY ==
--- NOTE | 2025-01-31 07:07 | DI.US_ITS ---
Exam(s) US OB 2-3 TRIMESTER EXAM: US OB 2-3 TRIMESTER CLINICAL HISTORY: ,z34.90. TECHNIQUE: Transabdominal obstetrical ultrasound performed. COMPARISON: US POCUS EXAM from 10/31/2024 FINDINGS: Number of fetuses: 1 position: Cephalic Placental location: Posterior no evidence of previa. BIOMETRIC DATA: BPD: 20+ 0 weeks, HC: 20+ 1 weeks, AC: 20+ 1 weeks, FL: 19+ 4 weeks, Cisterna magna: 6.5 mm Cerebellum: 1.6 cm Lateral ventricle: 5.3 mm EFW: 319 grams, 4th percentile, Composite Age: 20+ 0 weeks RADHA: 20 June 2025 Heart Rate: 124 Amniotic fluid : Amount of fluid is visually within normal limits. ANATOMICAL SURVEY: Four-chambered heart: Unremarkable. LVOT: Unremarkable. RVOT: Unremarkable. Left-sided stomach: Unremarkable. urinary bladder: Unremarkable. Bilateral kidneys: Unremarkable. Three-vessel cord: Unremarkable. Cord insertion: Unremarkable. Posterior fossa:Unremarkable. ventricles: Unremarkable. nose: Unremarkable. lips: Unremarkable. palate: Unremarkable. spine: Unremarkable. Two arms and two legs: Unremarkable. IMPRESSION: 1. Single live intrauterine gestation with composite age of 20 weeks 0 days, 1 week less than expecte d based on prior dating. Estimated weight is 4th percentile. 2. Normal anatomic survey. DATA REPOSITORY:
== END 2025-01-31 02:03 ==
LOC: DI 01:43
PROVIDERS: PCP Family Medicine; Visit Provider Advanced Practice Midwife
DX: Z34.82 Encounter for supervision of other normal pregnancy, second trimester (principal); Z3A.20 20 weeks gestation of pregnancy
CPT/HCPCS: 76805

== ENCOUNTER 2025-04-09 07:23 | Outpatient (CLI) | payer MEDICAID, SELFPAY ==
[2025-04-09 09:22] VITALS: BP 136/79; PULSE 69; TEMP 36.8
[2025-04-09 09:25] VITALS: BP 136/79; PULSE 69
[2025-04-09 09:39] VITALS: BP 124/74; PULSE 73
--- NOTE | 2025-04-09 12:48 | W.OBNST ---
Date of service: 04/09/25 Time of Service: 12:48 NST Evaluation Reason for NST Reasons for Nonstress Test: OTHER, SEE COMMENT Reason for NST Other: IUGR Gestational Age Gestational Age in Weeks and Days: 30 Weeks and 6Days Test and Monitor Explained Test/Monitor Explained: Test Explained, Monitor Explained and Patient Verbalized Understanding Vital Signs Blood Pressure: 136/79 Pulse: 69 Temperature: 98.2 F NST Information Date on Monitor: 04/09/25 Time on Monitor: 09:15 Date off Monitor: 04/09/25 Time off Monitor: 09:40 Total Time on Monitor: 25 NST Interventions: PO Hydration Contraction Frequency: 0 NST Evaluation Patient States Movement: Present FHR Baseline: 120 Variability: Moderate 6-25 bpm Accelerations: 10x10 Decelerations: None NST Results: Reactive Note Ultrasound Done: N/A. NST Note Note: Category 1 reactive NST NST Reviewed and Verified by: Kady Posey
[2025-04-09 12:49] VITALS: BP 136/79; PULSE 69; TEMP 36.8
== END 2025-04-09 09:48 ==
LOC: BCD 07:28 → OBS 09:20
PROVIDERS: PCP Family Medicine; Visit Provider Obstetrics & Gynecology
DX: Z3A.30 30 weeks gestation of pregnancy (principal); O36.5931 Maternal care for other known or suspected poor fetal growth, third trimester, fetus 1
CPT/HCPCS: 59025

== ENCOUNTER 2025-04-12 11:22 | Outpatient (CLI) | payer MEDICAID, SELFPAY ==
[2025-04-12 12:41] LABS: TSH 2.52 uIU/mL (0.36-3.74)
== END 2025-04-12 11:23 | disposition home or self-care (01) ==
LOC: LBO 11:23
PROVIDERS: PCP Family Medicine; Visit Provider Family Medicine
DX: O99.281 Endocrine, nutritional and metabolic diseases complicating pregnancy, first trimester (principal); E03.9 Hypothyroidism, unspecified
CPT/HCPCS: 36415; 84443

== ENCOUNTER 2025-04-17 07:19 | Outpatient (CLI) | payer MEDICAID, SELFPAY ==
[2025-04-17 10:57] VITALS: BP 130/79; PULSE 68
[2025-04-17 11:14] VITALS: BP 126/89; PULSE 63
[2025-04-17 11:40] VITALS: BP 130/79; PULSE 68; TEMP 36.7
--- NOTE | 2025-04-17 11:59 | W.OBNST ---
Date of service: 04/17/25 Time of Service: 11:59 NST Evaluation Reason for NST Reasons for Nonstress Test: INTRA-UTERINE GROWTH RES Gestational Age Gestational Age in Weeks and Days: 32 Weeks and 0Days Test and Monitor Explained Test/Monitor Explained: Test Explained, Monitor Explained and Patient Verbalized Understanding Vital Signs Blood Pressure: 130/79 Pulse: 68 Temperature: 98.0 F Urine Results Urine Protein: Negative Urine Ketones: Negative Urine Glucose: Negative Urine Blood: Negative NST Information Date on Monitor: 04/17/25 Time on Monitor: 10:54 Date off Monitor: 04/17/25 Time off Monitor: 11:36 Total Time on Monitor: 42 NST Interventions: PO Hydration Contraction Frequency: q 7-9 min, mild to palp, pt not feeling them NST Evaluation Patient States Movement: Present FHR Baseline: 120 Variability: Moderate 6-25 bpm Accelerations: 15x15 Decelerations: None NST Results: Reactive Note Ultrasound Done: N/A. NST Note Note: Category 1, reactive NST NST Reviewed and Verified by: Kady Posey
[2025-04-17 12:00] VITALS: BP 130/79; PULSE 68; TEMP 36.7
== END 2025-04-17 11:40 ==
LOC: BCD 07:19 → OBS 10:54
PROVIDERS: PCP Family Medicine; Visit Provider Obstetrics & Gynecology
DX: O47.03 False labor before 37 completed weeks of gestation, third trimester (principal); Z3A.32 32 weeks gestation of pregnancy
CPT/HCPCS: 59025

== ENCOUNTER 2025-04-17 13:33 | Outpatient (CLI) | payer MEDICAID, SELFPAY ==
[2025-04-17] VITALS (8 sets, daily range): BP systolic 147–174; BP diastolic 81–98; PULSE 49–115; TEMP 36.4
--- NOTE | 2025-04-17 16:05 | PDOC.NST_ITS ---
<Statement entered by Kady Posey DO - 04/17/25 17:37> Category 1, reactive NST. Elevated blood pressures. Given p.o. Procardia will be transferred to [facility] for ongoing care. Date of service: 04/17/25 Time of Service: 16:06 NST Evaluation Reason for NST Reasons for Nonstress Test: OTHER, SEE COMMENT Reason for NST Other: rule out labor Gestational Age Gestational Age in Weeks and Days: 32 Weeks and 0Days Test and Monitor Explained Test/Monitor Explained: Test Explained, Monitor Explained and Patient Verbalized Understanding Vital Signs Blood Pressure: 147/92 Pulse: 115 Temperature: 97.5 F Urine Results Urine Protein: Negative Urine Ketones: Negative Urine Glucose: Negative Urine Blood: Negative NST Information Time on Monitor: 14:28 Date off Monitor: 04/17/25 Time off Monitor: 15:33 NST Interventions: PO Hydration, Reposition Patient and Notify Provider Contraction Frequency: 5-6 NST Evaluation Patient States Movement: Present FHR Baseline: 115 Variability: Moderate 6-25 bpm Accelerations: 15x15 Decelerations: None NST Results: Reactive Note Ultrasound Done: N/A. NST Note NST Reviewed and Verified by: Kady Posey
== END 2025-04-17 15:59 ==
LOC: BCD 13:36 → OBS 13:38
PROVIDERS: PCP Family Medicine; Visit Provider Obstetrics & Gynecology
DX: O47.03 False labor before 37 completed weeks of gestation, third trimester (principal); Z3A.32 32 weeks gestation of pregnancy
CPT/HCPCS: 85384; 59025

== ENCOUNTER 2025-04-17 16:11 | Outpatient (CLI) | payer MEDICAID, SELFPAY ==
[2025-04-17] VITALS (7 sets, daily range): BP systolic 125–157; BP diastolic 77–95; PULSE 66–157; RESP 16; TEMP 36.6; O2SAT 99
[2025-04-17 16:45] LABS: Abs Immature Grans 0.09 10^3/uL (0.0-0.06); Absolute Basophil Count 0.04 10^3/uL (0.0-0.2); Absolute Lymphocyte Count 2.12 10^3/uL (1.2-3.4); Absolute Monocyte Count 0.69 10^3/uL (0.1-0.8); Basophils % 0.2 %; Eosinophils % 0.1 %; HCT 38.8 % (36.0-46.0); HGB 13.2 g/dL (11.2-15.7); Immature Grans % 0.5 %; Lymphocytes % 10.7 %; MCH 29.9 pg (27.0-33.0); MCV 88 fL (80-95); MPV 10.6 fL (8.0-11.0); Monocytes % 3.5 %; Platelet Count 255 10^3/uL (130-400); RBC 4.41 10^6/uL (3.93-5.22); RDW 12.4 % (11.7-14.6); WBC 19.83 10^3/uL (4.4-10.8)
[2025-04-17 16:48] LABS: Absolute Eosinophil Count 0.02 10^3/uL (0.0-0.7); Absolute Neutrophil Count 16.86 10^3/uL (1.2-6.7)
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
[2025-04-17 17:04] LABS: ALT 26 U/L (14-59); AST 26 U/L (15-37); Albumin 3.1 g/dL (3.4-5.0); Alkaline Phosphatase 141 U/L (46-116); Anion Gap 8.1 mmol/L (3-11); BUN 6 mg/dL (7-18); Bilirubin, Total 0.6 mg/dL (0.2-1.0); CO2 27.9 mmol/L (21.0-32.0); CREATININE 0.6 mg/dL (0.55-1.02); Calcium 8.7 mg/dL (8.5-10.1); Chloride 100 mmol/L (98-107); Estimated GFR 126.87 (mL/min/1.73m2); Glucose 120 mg/dL (74-106); Potassium 3.3 mmol/L (3.5-5.1); Sodium 136 mmol/L (136-145); Total Protein 7.4 g/dL (6.4-8.2)
[2025-04-17] MEDS: NIFEdipine 10 MG CAP PO (17:17)
[2025-04-17 17:31] LABS: COMMENT (LAB VIEW ONLY) 17.66 mg/dL
[2025-04-17 17:32] LABS: PROTEIN < 6.0 mg/dL
[2025-04-17] MEDS: Betamet Acet/Betamet Na Ph Inj. 30 MG/5 ML 12 MG IM (17:43)
== END 2025-04-17 18:02 ==
LOC: BCD 16:12 → OBS 16:14
PROVIDERS: PCP Family Medicine; Visit Provider Obstetrics & Gynecology
DX: O14.93 Unspecified pre-eclampsia, third trimester (principal); O36.5930 Maternal care for other known or suspected poor fetal growth, third trimester, not applicable or unspecified
CPT/HCPCS: 80053; 96372; 82565; 84156; 85025; G0378; J0702

== ENCOUNTER 2025-04-20 17:02 | Observation (INO) | payer MEDICAID, SELFPAY ==
[2025-04-20] VITALS (17 sets, daily range): BP systolic 134–180; BP diastolic 80–99; PULSE 60–92; RESP 16; TEMP 36.8–37; O2SAT 99
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
[2025-04-20 16:38] LABS: Bilirubin Negative (Negative); Blood Negative (Negative); Clarity Clear (Clear); Glucose Negative (Negative); Ketones Negative (Negative); Leukocyte Esterase Negative (Negative); Nitrite Negative (Negative); Specific Gravity 1.015 (1.005-1.025); Urobilinogen 0.2 mg/dL (Up to 0.2); pH 7.5 (5-8)
[2025-04-20] MEDS: NIFEdipine 10 MG CAP PO (17:30)
[2025-04-20] MEDS: NIFEdipine-CR 30 MG TABCR PO (17:31)
[2025-04-20 17:33] LABS: HCT 37.2 % (36.0-46.0); HGB 12.8 g/dL (11.2-15.7); MCH 29.8 pg (27.0-33.0); MCHC 34.4 % (32.0-36.0); MCV 87 fL (80-95); MPV 10.4 fL (8.0-11.0); Platelet Count 248 10^3/uL (130-400); RBC 4.29 10^6/uL (3.93-5.22); RDW 12.1 % (11.7-14.6); RDW-SD 38.4 fL; WBC 12.94 10^3/uL (4.4-10.8)
[2025-04-20 17:45] LABS: ALT 33 U/L (14-59); AST 23 U/L (15-37); Albumin 3.1 g/dL (3.4-5.0); Alkaline Phosphatase 143 U/L (46-116); BUN 4 mg/dL (7-18); Bilirubin, Total 0.5 mg/dL (0.2-1.0); CREATININE 0.6 mg/dL (0.55-1.02); Chloride 100 mmol/L (98-107); Estimated GFR 126.87 (mL/min/1.73m2); Glucose 81 mg/dL (74-106); Potassium 3.4 mmol/L (3.5-5.1); Sodium 136 mmol/L (136-145); Total Protein 7.2 g/dL (6.4-8.2)
[2025-04-20] MEDS: Lactated Ringers 1,000 ML 75 ML IV (18:00)
[2025-04-20] MEDS: MAGNESIUM SULFATE 20 GM/500 ML BAG IV_INF (18:02)
== END 2025-04-20 20:00 | disposition short-term general hospital (02) ==
LOC: BCD 17:09 → OBS 17:09
PROVIDERS: Admitting Provider Obstetrics & Gynecology; PCP Family Medicine; Visit Provider Obstetrics & Gynecology
DX: O14.93 Unspecified pre-eclampsia, third trimester (principal); Z3A.32 32 weeks gestation of pregnancy; O36.5930 Maternal care for other known or suspected poor fetal growth, third trimester, not applicable or unspecified; O99.283 Endocrine, nutritional and metabolic diseases complicating pregnancy, third trimester; E03.8 Other specified hypothyroidism; O99.323 Drug use complicating pregnancy, third trimester; F11.90 Opioid use, unspecified, uncomplicated; F12.90 Cannabis use, unspecified, uncomplicated; O99.343 Other mental disorders complicating pregnancy, third trimester; F43.10 Post-traumatic stress disorder, unspecified; F90.0 Attention-deficit hyperactivity disorder, predominantly inattentive type; F41.1 Generalized anxiety disorder; O99.333 Smoking (tobacco) complicating pregnancy, third trimester; F17.290 Nicotine dependence, other tobacco product, uncomplicated
CPT/HCPCS: 80053; 85027; 86850; 86900; 86901; 96365; 96366; 59025; 81003; G0378; J3475

== ENCOUNTER 2025-04-30 07:25 | Outpatient (CLI) | payer MEDICAID, SELFPAY ==
[2025-04-30 12:06] VITALS: BP 122/81; PULSE 70; TEMP 36.5
[2025-04-30 12:17] VITALS: BP 122/81; PULSE 70
--- NOTE | 2025-05-01 10:33 | PDOC.NST_ITS ---
Date of service: 04/30/25 Time of Service: 17:00 NST Evaluation Reason for NST Reasons for Nonstress Test: GESTATIONAL HYPERTENSION and INTRA-UTERINE GROWTH RES Gestational Age Gestational Age in Weeks and Days: 33 Weeks and 6Days Test and Monitor Explained Test/Monitor Explained: Test Explained, Monitor Explained and Patient Verbalized Understanding Vital Signs Blood Pressure: 122/81 Pulse: 70 Temperature: 97.7 F NST Information Date on Monitor: 04/30/25 Time on Monitor: 12:09 Date off Monitor: 04/30/25 Time off Monitor: 12:42 Total Time on Monitor: 33 NST Interventions: PO Hydration Contraction Frequency: 13 NST Evaluation Patient States Movement: Present FHR Baseline: 120 Variability: Moderate 6-25 bpm Accelerations: 15x15 Decelerations: None NST Results: Reactive Note Ultrasound Done: N/A. NST Note Note: Patient seen today for blood pressure check and NST. Recently hospitalized for severe-range pressures and MAT titration. Ms. Nix is in pleasant spirits, today. She reports feeling well and denies any pre-eclampsia symptoms. Her blood pressure is appropriate and NST is reactive and reassuring. She has f/u scheduled with [facility] for later in the week. Will continue twice weekly screening and encouraged low threshold for seeking immediate medical evaluation if concerns arise. NST Reviewed and Verified by: Amanda Jorge
[2025-05-01 10:38] VITALS: BP 122/81; PULSE 70; TEMP 36.5
== END 2025-04-30 12:50 ==
LOC: BCD 08:24 → OBS 11:49
PROVIDERS: PCP Family Medicine; Visit Provider Obstetrics & Gynecology
DX: O13.3 Gestational [pregnancy-induced] hypertension without significant proteinuria, third trimester (principal); Z3A.33 33 weeks gestation of pregnancy; O36.5930 Maternal care for other known or suspected poor fetal growth, third trimester, not applicable or unspecified
CPT/HCPCS: 59025

== ENCOUNTER 2025-05-07 07:22 | Outpatient (CLI) | payer MEDICAID, SELFPAY ==
[2025-05-07 12:30] VITALS: BP 140/78; PULSE 90; TEMP 36.8
--- NOTE | 2025-05-07 15:03 | W.OBNST ---
Date of service: 05/07/25 Time of Service: 15:03 NST Evaluation Reason for NST Reasons for Nonstress Test: GESTATIONAL HYPERTENSION and OTHER, SEE COMMENT Reason for NST Other: SGA Gestational Age Gestational Age in Weeks and Days: 35 Weeks and 0Days Test and Monitor Explained Test/Monitor Explained: Test Explained, Monitor Explained and Patient Verbalized Understanding Vital Signs Blood Pressure: 140/78 Pulse: 90 Temperature: 98.3 F Urine Results Urine Protein: Positive Urine Ketones: Positive Urine Glucose: Positive Urine Blood: Positive NST Information Date on Monitor: 05/07/25 Time on Monitor: 12:36 Date off Monitor: 05/07/25 Time off Monitor: 12:59 Total Time on Monitor: 23 NST Interventions: Other NST Evaluation Patient States Movement: Present FHR Baseline: 120 Variability: Moderate 6-25 bpm Accelerations: 15x15 Decelerations: None NST Results: Reactive Note Ultrasound Done: N/A. NST Note Note: 24 yo (h/o x1) at 34 6/7 as dated by LMP equal to 8 wk US ([facility] 06/12/2025) presents for scheduled NST. complicated by h/o non-prescribed opiate use; resolved and currently managed with Methadone (80 AM / 50 PM per patient), THC use, growth restriction (less than the 1st percentile w/elevared dopplers), hypothyroid, history of labor (IOL at 35 wks for FGR in G1), as well as h/o hemorrhage requiring suction dilation and curettage (retained products of conception). Her last visit with [facility] was 05/02/2025; notes suggest she had a reactive NST but has been noted to have elevated dopplers (SD ratio in the 97%tile) and she declined dopplers that day (patient stated she couldn't stay). She is scheduled with them again 05/09. She reports feeling well, today. She denies any s/sx of pre-eclampsia and reports that her anxiety has improved. She plans to follow up with [facility] as scheduled. She was advised to have a low threshold for seeking immediate medical evaluation if she has any concerns for decreased movement. Labor precautions reviewed. NST Reviewed and Verified by: Amanda Jorge
[2025-05-07 15:08] VITALS: BP 140/78; PULSE 90; TEMP 36.8
== END 2025-05-07 13:38 | disposition other institution (70) ==
LOC: BCD 07:22 → OBS 12:29
PROVIDERS: PCP Family Medicine; Visit Provider Obstetrics & Gynecology
DX: O13.3 Gestational [pregnancy-induced] hypertension without significant proteinuria, third trimester (principal); Z3A.35 35 weeks gestation of pregnancy
CPT/HCPCS: 59025

== ENCOUNTER 2025-05-10 14:38 | Outpatient (CLI) | payer MEDICAID, SELFPAY ==
[2025-05-10 14:56] LABS: HCT 34.9 % (36.0-46.0); HGB 11.7 g/dL (11.2-15.7); MCH 29.9 pg (27.0-33.0); MCHC 33.5 % (32.0-36.0); MCV 89 fL (80-95); MPV 10.8 fL (8.0-11.0); Platelet Count 235 10^3/uL (130-400); RBC 3.91 10^6/uL (3.93-5.22); RDW 12.5 % (11.7-14.6); RDW-SD 40.5 fL; WBC 10.67 10^3/uL (4.4-10.8)
[2025-05-10 15:31] LABS: ALT 24 U/L (14-59); AST 20 U/L (15-37); Albumin 2.7 g/dL (3.4-5.0); Alkaline Phosphatase 184 U/L (46-116); Anion Gap 7.8 mmol/L (3-11); BUN 9 mg/dL (7-18); Bilirubin, Total 0.5 mg/dL (0.2-1.0); CO2 28.2 mmol/L (21.0-32.0); CREATININE 0.7 mg/dL (0.55-1.02); Calcium 8.7 mg/dL (8.5-10.1); Chloride 101 mmol/L (98-107); Estimated GFR 122.25 (mL/min/1.73m2); Glucose 86 mg/dL (74-106); Sodium 137 mmol/L (136-145); Total Protein 6.8 g/dL (6.4-8.2)
[2025-05-10 15:39] LABS: TSH (W/Ref FT4) 5.99 uIU/mL (0.36-3.74)
[2025-05-10 16:01] LABS: FREE T4 0.98 ng/dL (0.76-1.46)
== END 2025-05-10 14:39 | disposition home or self-care (01) ==
LOC: LBO 14:38
PROVIDERS: Obstetrics & Gynecology; PCP Family Medicine; Visit Provider Student in an Organized Health Care Education/Training Program
DX: E03.8 Other specified hypothyroidism (principal)
CPT/HCPCS: 36415; 80053; 85027; 84439; 84443

== ENCOUNTER 2025-05-14 07:19 | Outpatient (CLI) | payer MEDICAID, SELFPAY ==
[2025-05-14 12:15] VITALS: BP 123/84; PULSE 65; TEMP 36.6
[2025-05-14 12:33] VITALS: BP 123/84; PULSE 65
--- NOTE | 2025-05-14 12:58 | W.OBNST ---
Date of service: 05/14/25 Time of Service: 12:58 NST Evaluation Reason for NST Reasons for Nonstress Test: INTRA-UTERINE GROWTH RES Gestational Age Gestational Age in Weeks and Days: 35 Weeks and 6Days Test and Monitor Explained Test/Monitor Explained: Test Explained, Monitor Explained and Patient Verbalized Understanding Vital Signs Blood Pressure: 123/84 Pulse: 65 Temperature: 97.9 F Urine Results Urine Protein: Negative Urine Ketones: Negative Urine Glucose: Negative Urine Blood: Negative NST Information Time on Monitor: 12:15 Date off Monitor: 05/14/25 Time off Monitor: 12:50 NST Interventions: PO Hydration NST Evaluation Patient States Movement: Present FHR Baseline: 110 Variability: Moderate 6-25 bpm Accelerations: 15x15 Decelerations: None NST Results: Reactive Note Ultrasound Done: N/A. NST Note Note: Patient reports for routine NST; she reports feeling well. She denies any contractions, vaginal bleeding, or leakage. She reports good movement, she states she has been making her appointments and has one coming up. Labor precautions reviewed NST Reviewed and Verified by: Amanda Jorge
[2025-05-14 12:59] VITALS: BP 123/84; PULSE 65; TEMP 36.6
== END 2025-05-14 12:54 | disposition other institution (70) ==
LOC: BCD 07:19 → OBS 12:14
PROVIDERS: PCP Family Medicine; Visit Provider Obstetrics & Gynecology
DX: Z3A.35 35 weeks gestation of pregnancy (principal); O36.5930 Maternal care for other known or suspected poor fetal growth, third trimester, not applicable or unspecified
CPT/HCPCS: 59025

== ENCOUNTER 2025-05-17 10:15 | Inpatient (IN) | payer MEDICAID, SELFPAY ==
[2025-05-17] VITALS (100 sets, daily range): BP systolic 102–170; BP diastolic 55–99; PULSE 55–114; RESP 16–18; TEMP 34.1–37; O2SAT 98–100; BMI 29.2
[2025-05-17] MEDS: Lactated Ringers 1,000 ML 999 ML IV (10:30)
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
[2025-05-17] MEDS: Methadone Liquid 10 MG/ML 80 MG PO (11:06)
--- NOTE | 2025-05-17 11:49 | W.ANESVAS ---
Peripheral IV Placement Date Performed: 05/17/25 Procedure Time: 11:40 Requesting Provider: Lizeth Allen Procedure Location: Obstetrics Sedation Given (Indicate Dose Given): No Sedation given Patient Mental Status: Awake Laterality: Left Insertion Site: Hand Size & Type: 18 ga. Dressing: IV Dressing Placed and Statlock Applied Ultrasound: Not Used Number of Attempts (See previous attempts in note section): 1 Procedure Tolerated: No Complications Procedure Outcome: Successful Procedure Comment: 0.5 mL of lidocaine 10 mg/mL to skin. Performed By: Gavino Staton
[2025-05-17] MEDS: FentaNYL/ROPIvacaine 2 mcg/ml and 0.1% 200 ML CADD Cassette EP (11:50)
--- NOTE | 2025-05-17 11:51 | W.ANESNEU ---
Epidural/Spinal Catheter Date Performed: 05/17/25 Procedure Start: 11:12 Procedure Stop: 11:16 Requesting Provider: Lizeth Allen Procedure Location: Obstetrics Reason Performed: Labor Epidural Standard Monitors Applied: Blood Pressure, SpO2 and See EMR for corresponding vital signs Patient Position: Sitting Sedation Given (Indicate Dose Given): No Sedation given Patient Mental Status: Awake Sterility: Hand Hygiene, Surgical Cap, Surgical Mask, Sterile Gloves, Sterile Drape/Sheet and Chlorhexidine Procedure Location: L2-L3 Interspace Epidural Needle: Tuohy 17 Guage Needle Length: 3.5 Inch Needle Approach: Midline Epidural Procedure: 1% Lidocaine to skin and subcutaneous tissue with 25G needle and HODAN to Saline Used Catheter Placed?: Catheter Placed (wire reinforced) Test Dose (Indicate Dose Given): 3ml 1.5% Lidocaine with 1:200K Epinephrine Given and Negative Test Dose Loss of Resistance Depth (cm): 5 Catheter depth at skin (cm): 11 Dressing: Sorbaview Dressing Placed, Mastisol Used and Dressing reinforced with Tape Epidural Provider Bolus (Indicate Dose Given): Total Ropivacaine 0.1% with Fentanyl 2mcg/ml Given from pump. (ml) Dose:: 5 mL Additives (Indicate Dose Given ): None Infusion Medication: Medication Infusion Began Medication Infusion: Ropivacaine 0.1% with Fentanyl 2mcg/ml Maintenance Infusion Rate (ml/hour): 5 PCEA Bolus Dose (ml): 10 Block Level: N/A Paresthesia: None Ultrasound: Used to agueda site Number of Attempts (See previous attempts in note section): 1 Procedure Tolerated: No Complications Procedure Outcome: Successful Performed By: Gavino Staton
[2025-05-17] MEDS: Lactated Ringers 1,000 ML 50 ML IV (12:50)
[2025-05-17 12:57] LABS: HCT 34.6 % (36.0-46.0); HGB 11.8 g/dL (11.2-15.7); MCHC 34.1 % (32.0-36.0); MCV 88 fL (80-95); MPV 10.9 fL (8.0-11.0); Platelet Count 218 10^3/uL (130-400); RBC 3.93 10^6/uL (3.93-5.22); RDW 12.4 % (11.7-14.6); RDW-SD 40.5 fL
--- NOTE | 2025-05-17 12:58 | PLAC_PTH ---
PATIENT: Stephanie Nix LOC: OBS U#:[id number] AGE/SX: 24/F ROOM: OBS.303 RE05/17/[address]: Lizeth Allen MD : 2000 BED: A DIS: 05/17/2025 SPEC #: [id number] RECD: 05/17/25 16:45 STATUS: DELROY REQ #: [id number] MIKEL: 05/17/25 12:[address]: Lizeth Allen DEPT: Surgical Specimen RECD BY: Audrey Ahumada ENTERED: 05/17/25 16:46 SP TYPE: PLAC OTHR DR: Catrachita Singleton Tissues: 1 - PLACENTA (3RD TRIMESTER) Procedures: GROSS AND MICRO LEVEL 5 Comments:
[2025-05-17 13:13] LABS: ALT 23 U/L (14-59); AST 19 U/L (15-37); Albumin 2.5 g/dL (3.4-5.0); Alkaline Phosphatase 205 U/L (46-116); Anion Gap 8.9 mmol/L (3-11); BUN 7 mg/dL (7-18); Bilirubin, Total 0.5 mg/dL (0.2-1.0); CO2 27.1 mmol/L (21.0-32.0); CREATININE 0.8 mg/dL (0.55-1.02); Calcium 8.2 mg/dL (8.5-10.1); Chloride 102 mmol/L (98-107); Estimated GFR 104.15 (mL/min/1.73m2); Glucose 114 mg/dL (74-106); Potassium 3.3 mmol/L (3.5-5.1); Sodium 138 mmol/L (136-145); Total Protein 6.5 g/dL (6.4-8.2)
--- NOTE | 2025-05-17 13:30 | DI.RAD_ITS ---
Exam(s) XR ABDOMEN FLAT PLATE EXAM: 2D digital imaging was performed. CLINICAL HISTORY: STAT PROCEDURE/ INSTRUMENT COUNT NOT DONE PRIOR. COMPARISON: No exams were available for comparison TECHNIQUE: Supine view of the abdomen performed. FINDINGS: BOWEL GAS PATTERN: Nondistended. CALCIFICATIONS: No radiopaque calcifications. OSSEOUS STRUCTURES: Unremarkable for age. Soft tissues: Lopez catheter present in the bladder. Thin curvilinear metallic density at the upper abdomen in the midline, overlying the spine. IMPRESSION: 1. Nonobstructive bowel gas pattern. 2. Thin curvilinear metallic density at the upper abdomen in the midline, overlying the spine. Clinical correlation recommended. DATA REPOSITORY: RADIATION DOSE DELIVERED:
--- NOTE | 2025-05-17 13:52 | PDOC.OPNB_ITS ---
Date of service: 05/17/25 Time of Service: 13:53 Operative Note Operative Note Delivery Method: Unscheduled STAT: Yes PRE-OP DIAGNOSES: bradycardia, suspected placental abruption POST-OP DIAGNOSES: same PROCEDURE: PCS SURGEON: Lizeth Allen Assisting Surgeon: Marleny Henry Estimated blood loss (mL): 700 Pathology: other (placenta) Complications: None Patient was transported to: PACU Patient's condition: stable Indications: Pt is a 24yo who presented to the hospital @36.2wks with vaginal bleeding and cramping. She was found to be in early labor with concerns for placental abruption. However FHT was Cat 1 initially and bleeding was stable. FHT then developed minimal variability for about 30min. Repeat cervical exam revealed minimal change so her membranes were ruptured. Shortly after this there was difficulty tracing the heartrate and uncertainty as to if we were tracing mom or baby as their heart rates seemed almost identical. Ultrasound was retrieved and the heart rate was visualized to be very slow. Therefore STAT CS was called. Findings: Male . Minimal amniotic fluid noted, no significant clots noted within the uterine cavity. Placenta was still attached to the uterus and appeared intact. Uterus with some evidence of bruising on the upper anterior aspect. Normal appearing ovaries and tubes. Procedure Description: The patient was taken quickly to the operating room. She had epidural anesthesia that was working well. She already had a ibrahim catheter in place. The heart rate was checked and was 110. She underwent abdominal prep with betadyne and was draped in the dorsal supine position with a leftward tilt. A skin incision was made with the scalpel and carried down to the underlying layer of fascia with blunt dissection. The fascia was incised on either side of the midline and the fascial incision extended laterally with a combination of sharp and blunt dissection. The rectus muscles were in the midline and the peritoneum was entered bluntly. The peritoneal incision was extended laterally with blunt dissection. The bladder blade was inserted. A transverse incision was made in the lower uterine segment with the scalpel. The incision was extended superiorly and inferiorly with blunt pressure. The infants head delivered with fundal pressure followed by the shoulders and the rest of the body. The baby cried and had good tone at delivery. The cord was milked toward the baby and after 1min it was clamped x2 and cut. The baby was handed to the investor relations associate. Cord blood was collected and a segment of cord was set aside for cord gasses. The placenta delivered with fundal massage and gentle cord traction and appeared to be intact. The uterus was exteriorized and cleared of clots and debris. The uterine incision was closed with 0-vicryl in a running locked fashion with a second layer of suture imbricating the first. Good hemostasis was noted. The uterus was placed back into the abdominal cavity. Clots were cleared from the peritoneal cavity with lap sponges. There was a tear in the peritoneum over the left lower uterine segment/cervix. One superficial [id number] suture of 3-0 vicryl was placed to reapproximate the peritoneum. The uterine incision was inspected once again and good hemostasis was noted. There was good hemostasis of the rectus muscles. The fascia was closed with 0- vicryl in a running unlocked fashion. The subcuticular layer was irrigated and closed with interrupted sutures of 3-0 vicryl. The skin was closed with 4-0 vicryl in a running subcuticular fashion. The incision was cleaned. Mastisol and steristrips were placed. A dressing was placed. The fundus was palpated at the umbilicus and some clots were evacuated. It was noted to be firm. An x-ray was done due to lack of instrument count prior to the procedure. The patient was moved to the stretcher and taken to her room in stable condition. [place] Infant Gender: Male
--- NOTE | 2025-05-17 14:26 | W.ANESPOSTOP ---
Postoperative Evaluation Date, Time and Location Date Performed: 05/17/25 Time Performed: 14:26 Patient Location: Obstetrics Vital Signs Most Recent Imported Vital Signs: Most Recent Vital Signs Pulse BP Pulse Ox 66 126/76 100 05/17/25 14:24 05/17/25 14:22 05/17/25 14:24 Assessment Mental Status: Arousable with meaningful communication Airway and Respiratory Function: Patent airway with normal (patient baseline) respiratory exam Cardiovascular Function: Hemodynamically Stable Hydration Status: Adequately Hydrated Nausea & Vomiting: No Nausea or Vomiting Pain: Pain is tolerable per patient (epidural waning. ) Peripheral Nerve Block: Patient did not receive a nerve block
[2025-05-17] MEDS: Ketorolac 30 MG/ML VIAL IVP (15:25)
[2025-05-17] MEDS: Normal Saline Flush 10 ML SYR IVP (15:26)
--- NOTE | 2025-05-17 16:27 | W.ED.EVENT ---
Date of service: 05/17/25 Time of Service: 16:27 Event Note: Patient is 36 weeks , and had vaginal bleeding requiring immediate delivery. She called EMS and was brought to [facility]. We are contacted by obstetrics, and it was requested that the patient be visualized on the way to obstetrics. Patient arrived at [facility], she was met in the hallway by myself. She is hemodynamically stable at the time of arrival with a heart rate in the 90s, and a normal blood pressure per EMS. Bleeding appears controlled at this time. Patient stable to be transition to obstetrics for emergent delivery. Time Spent with Patient Time spent in critical care(minutes): 5 Time Spent Included: Time at immediate bedside
[2025-05-17] MEDS: Acetaminophen 325 MG TAB 650 MG PO (17:17)
[2025-05-17 18:00] LABS: Absolute Basophil Count 0.04 10^3/uL (0.0-0.2); Absolute Lymphocyte Count 1.14 10^3/uL (1.2-3.4); Absolute Monocyte Count 0.49 10^3/uL (0.1-0.8); Basophils % 0.2 %; HCT 27.4 % (36.0-46.0); HGB 9.5 g/dL (11.2-15.7); Immature Grans % 0.5 %; Lymphocytes % 5.3 %; MCH 30.2 pg (27.0-33.0); MCHC 34.7 % (32.0-36.0); MCV 87 fL (80-95); MPV 10.9 fL (8.0-11.0); Monocytes % 2.3 %; Neutrophils % 91.7 %; Platelet Count 190 10^3/uL (130-400); RBC 3.15 10^6/uL (3.93-5.22); RDW 12.4 % (11.7-14.6); RDW-SD 39.6 fL; WBC 21.46 10^3/uL (4.4-10.8)
[2025-05-17 18:14] LABS: Absolute Neutrophil Count 19.68 10^3/uL (1.2-6.7)
--- NOTE | 2025-05-17 18:40 | W.PM.OBPNV1 ---
Date of service: 05/17/25 Time of Service: 18:40 Assessment and Plan Assessment and plan (1) bradycardia, delivered: Status: Acute Assessment and plan: Pt is a P2 5.5hrs s/p Stat PCS for bradycardia with suspected placental abruption @36.2wks. Her was complicated by GHTN, IUGR and methadone tx for a h/o substance use. The CS was uncomplicated and she seems to be recovering well. The baby needed to be transported for NICU care and mom will follow to be with him. Subjective Subjective Narrative: Pt reports some mild abdominal cramping. Minimal bleeding. She has tolerated oral intake w/out nausea. Exam Physical Exam Vital signs: Temp Pulse Resp BP Pulse Ox 98.6 F 65 16 152/83 H 100 05/17/25 17:13 05/17/25 18:18 05/17/25 17:13 05/17/25 18:18 05/17/25 15:49 Vital Signs Reviewed: Yes Constitutional Constitutional: no acute distress and cooperative Detailed HEENT Exam Head: Present normocephalic and atraumatic Respiratory Exam Respiratory Exam: Normal Abdominal Exam Abdomen: Tender (mildly) Comments: Dressing clean. Fundal Exam Fundus: Below Umbilicus and Firm Exam Comments: Minimal lochia Extremities Exam Extremity Exam: Edema (trace) Detailed Neurological Exam Neurological: Present alert, oriented X3 and CN II-XII intact Results Hemoglobin/Hematocrit: Hgb 9.5 g/dL (11.2-15.7) L D 05/17/25 17:50 Hct 27.4 % (36.0-46.0) L 05/17/25 17:50 Abnormal Lab Findings: Abnormal Labs 05/17/25 05/17/25 12:42 17:50 WBC 21.70 H 21.46 H RBC 3.15 L Hgb 9.5 L D Hct 34.6 L 27.4 L Absolute Neutrophils 19.68 H Absolute Lymphocytes 1.14 L Potassium 3.3 L Glucose 114 H Calcium 8.2 L Alkaline Phosphatase 205 H Albumin 2.5 L Additional Findings Results: Pre-op H/H was34.6/11.8. EBL was 1000ml during the procedure. She had about a 300ml EBL prior to the CS and about 200-300ml were expressed right after the CS.
[2025-05-17 19:26] LABS: COMMENT (LAB VIEW ONLY) 70.48 mg/dL; Prot/Crea Ur Ratio 0.55
[2025-05-17 19:34] LABS: *AMPHETAMINES SCREEN URINE Negative (Negative); *BARBITURATES SCREEN URINE Negative (Negative); *BENZODIAZEPINES SCREEN URINE Negative (Negative); Cannabinoids THC Positive (Negative); Cocaine Screen,Urine Negative (Negative); METHADONE URINE SCREEN Positive (Negative); OPIATES URINE SCREEN Negative (Negative)
[2025-05-17 19:36] LABS: Tricyclic Antidepressants Negative (Negative)
== END 2025-05-17 19:22 | disposition short-term general hospital (02) | DRG 787 ==
LOC: ER 10:18 → BCD 10:18 → OBS 10:41 → BCD 13:10 → OBS 13:10
PROVIDERS: Admitting Provider Obstetrics & Gynecology; PCP Family Medicine; Visit Provider Obstetrics & Gynecology
PROC: 10D00Z1 Extraction of Products of Conception, Low, Open Approach (ICD-10-PCS; CPT 59514; principal; 2025-05-17 12:45)
DX: O13.4 Gestational [pregnancy-induced] hypertension without significant proteinuria, complicating childbirth (principal); F11.20 Opioid dependence, uncomplicated; O76 Abnormality in fetal heart rate and rhythm complicating labor and delivery; Z3A.36 36 weeks gestation of pregnancy; Z37.0 Single live birth; O67.8 Other intrapartum hemorrhage; O36.5930 Maternal care for other known or suspected poor fetal growth, third trimester, not applicable or unspecified; O99.324 Drug use complicating childbirth
CPT/HCPCS: 59514; 00123; 76942; 80053; 80307; 85027; 86850; 86900; 86901; 59025; 74018; 82565; 84156; 85025; 88307; J0131; J0330; J0665; J0690; J1100; J1885; J2003; J2371; J2401; J2405

== ENCOUNTER 2025-09-19 19:55 | Outpatient (REF) | payer MEDICAID, SELFPAY ==
[2025-09-19 20:49] LABS: TSH (W/Ref FT4) 1.98 uIU/mL (0.36-3.74)
== END 2025-09-19 19:56 | disposition home or self-care (01) ==
LOC: NCHCN 19:55
PROVIDERS: PCP Family Medicine; Visit Provider Family Medicine
DX: E03.9 Hypothyroidism, unspecified (principal)
CPT/HCPCS: 84443

== ENCOUNTER → 2025-11-19 00:38 | Outpatient (CLI) | payer MEDICAID, SELFPAY ==
--- NOTE | 2025-11-19 12:32 | DI.US_ITS ---
APPROVED REPORT EXAM: Comprehensive 2D, Doppler, and color-flow Echocardiogram Patient Location: Out-Patient Rn Compliance: Karen Brown RDCS (AE) Indications: Murmur, Intensity gradeII/ Other Information Study Quality: Good Conclusion Normal left ventricular wall thickness and chamber size. Ejection fraction is 60%. Wall motion is normal Normal right ventricular size and function Both atria are normal in size There is no structural or hemodynamically significant valvular disease Wall motion Left Ventricle The left ventricle is normal size. The left ventricular systolic function is normal. The left ventricular ejection fraction is within the normal range. There is normal left ventricular wall thickness. There is normal LV segmental wall motion. There is no ventricular septal defect visualized. LVEF is 60%. Right Ventricle The right ventricle is normal size. The right ventricular systolic function is normal. Atria The left atrium size is normal. The right atrium size is normal. The interatrial septum is intact with no evidence for an atrial septal defect. Aortic Valve The aortic valve is normal in structure. Aortic valve is trileaflet. There is no aortic valvular stenosis. No aortic regurgitation is present. Mitral Valve The mitral valve is normal in structure. No evidence of mitral valve stenosis. Trace mitral regurgitation. Tricuspid Valve The tricuspid valve is normal in structure. There is no tricuspid valve stenosis. Trace tricuspid regurgitation. Unable to assess PA pressure. Pulmonic Valve The pulmonary valve is normal in structure. There is no pulmonic valvular stenosis. Trace pulmonic regurgitation. Great Vessels The aortic root is normal in size. The ascending aorta is normal in size. Aortic arch is not well visualized. IVC is normal in size and collapses >50% with inspiration. Pericardium There is no pericardial effusion. 2D Dimensions IVSD d PLAX 0.80 cm F: 0.6-1.0 Ao Root d 2.03 cm F: 2.7 - 3.3 LVPW d PLAX 0.84 cm F: 0.6 - 1.0 Ao Asc Diam d 2.37 cm F: 2.3 - 3.1 LVID d PLAX 4.01 cm F: 3.8 - 5.2 LVDs 2.74 cm F: 2.2 - 3.5 LV EF Teichholz 60.2 % FS 31.69 % LV EDV (Teich) 70.3 mL LV ESV (Teich) 27.9 mL M-Mode TAPSE 2.39 cm (M/F) >1.7 Auto EF LV EDV A4C 112.9 mL LV EDV A2C 124.1 mL LV EDV BP 118.9 mL LV ESV A4C 44.9 mL LV ESV A2C 49.6 mL LV ESV BP 46.6 mL LVEF(%) A4C 60.2 % LVEF(%) A2C 60.0 % LVEF(%) BP 60.8 % LV SV A4C 68.0 ml LV SV A2C 74.5 ml LV SV BP 72.3 ml LV CO A4C 4.9 L/min LV CO A2C 5.6 L/min LV CO BP 5.3 L/min HR A4C 72.58 BPM HR A2C 75.45 BPM LV EDV Index (BP) LA Volume LA Length A4C 5.0 cm LA Length A2C 4.6 cm LA Area A4C s 17.34 cm2 LA Area A2C s 16.05 cm2 LA Vol A4C A-L 50.58 mL LA Vol A2C A-L 47.31 mL LA Vol Biplane A-L 51.1 mL LA Vol/BSA A4C A-L LA Vol/BSA A2C A-L LA Vol/BSA BP A-L 30.4 mL/m2 LA Vol A4C MOD 46.0 mL LA Vol A2C MOD 44.7 mL LA Vol BP MOD 47.3 mL RA Volume RA Area A4C 12.1 cm2 RA ESV A4C (A-L) 28.4mL RA Vol/BSA A4C A-L RA Length A4C 4.3 cm RA ESV A4C (MOD) 26.4mL LV Diastology MV E' medial 0.144 (>0.07 m/s) MV E Vmax 1.24 (0.4-1.3 m/s) MV E/E' MED 8.65 (<14) MV A Vmax 0.80 (0.4-1.3 m/s) MV E' lateral 0.185 (>0.1 m/s) E/A Ratio 1.5 MV E/E' LAT 6.73 (<14) MV E' Average 0.164 m/s MV E/E'(average) 7.57 Aortic Valve AoV Vmax 1.42 m/s LVOT Vmax 1.17 m/s AoV Peak Grad 8.0 mmHg LVOT Peak Grad 5.5 mmHg AoV Area (Vmax) 2.25 cm2 LVOT VTI 0.268 m AoV VTI 0.336 m LVOT Mean Grad 3.0 mmHg AoV Mean Harman. 1.09 m/s LVOT SV 73.04 mL AoV Mean Grad 5.2 mmHg LVOT Diam s 1.85 cm AoV Area (VTI) 2.17 cm2 AV Regurg Peak Gr. 8.02 mmHg Velocity Ratio 0.82 Mitral Valve MV DT 172 (160-240 msec) MV Vmax TIPS 1.38 m/s MV Mean Grad 3.1 (<2mmHg) MV VTI 0.331 m Pulmonary Valve PV Vmax 1.34 (0.5-1.5 m/s) RVOT Vmax 0.87 m/s PV Peak Grad 7.2 mmHg RVOT Peak Gr. 3.0 mmHg PV Mean Harman 0.96 m/s RVOT VTI 0.198 m PV Mean Grad 4.1 mmHg RVOT Mean Gr. 1.8 mmHg Tricuspid Valve RA Pressure 3.00 mmHg TV S' 0.17 m/s
== END ==
PROVIDERS: PCP Family Medicine; Visit Provider Family Medicine
DX: R01.1 Cardiac murmur, unspecified (principal)
CPT/HCPCS: 93306